=== PATIENT | female | born 1985 | race Caucasian/White ===

== ENCOUNTER 2021-09-08 16:28 | Outpatient (CLI) | payer MEDICAID, SELFPAY ==
[2021-09-08] VITALS (13 sets, daily range): BP systolic 132–158; BP diastolic 63–86; PULSE 76–92; TEMP 35.7; O2SAT 96–99; BMI 49.0
--- NOTE | 2021-09-08 17:10 | OB.TRI.NOTE ---
HPI - General HPI Narrative PAZ WILDER, is a 36 F @ 30.5 weeks who presents c/o visual changes- sun spots since yesterday, headache behind right eye- not relieve with tylenol and left arm tingling and weakness. pt reports h/o PRE E about 17 yrs ago at end of . pt denies any CHTN dx. Pt is GDMA2 on insulin. Maternal Data Information Gestational age: 30.5 PFSH PFSH Home Medications Novolin 70/30 PenFill 8 units 09/08/21 [History Last Taken Unknown] aspirin [Aspir-81] 81 mg PO DAILY 09/08/21 [History Last Taken 09/07/21 21:00] sertraline [Zoloft] 50 mg PO DAILY 09/08/21 [History Last Taken 09/08/21 09:00] Allergy/AdvReac Type Severity Reaction Status Date / Time bee venom protein (honey bee) Allergy Hives Verified 09/08/21 16:52 Physical Exam Narrative general: Female in no apparent distress eyes: Left eye pupil slightly more dilated than her right. They are both reactive to light. ext: Patient has full range of motion and there is no decrease in her strength in lower extremities or upper extremities that I could appreciate on exam. abd: Soft gravid nontender to palpation. No right upper quadrant pain.
[2021-09-08] MEDS: 0.9% Saline Lock 10 ML Syringe IV (17:20)
--- NOTE | 2021-09-08 17:35 | CT_ITS ---
EXAM: CT ANGIOGRAPHY HEAD AND NECK WITH INTRAVENOUS CONTRAST CLINICAL INDICATION: headache, unequal pupils TECHNIQUE: [place]/head and neck CT angiography protocol performed with intravenous contrast. This CT exam was performed using one or more of the following dose reduction techniques: automated exposure control, adjustment of the mA and/or kV according to patient size, and/or use of iterative reconstruction technique. This report was created using [employer] report generation technology. MIP reconstructed images were created and reviewed. CONTRAST: IV 100mL Isovue-370 COMPARISON: None. FINDINGS: HEAD: RIGHT ANTERIOR CEREBRAL ARTERY: Unremarkable. No significant stenosis at the visualized segments. Anterior communicating artery is present. No aneurysm. RIGHT MIDDLE CEREBRAL ARTERY: Unremarkable. No significant stenosis at the visualized segments. No aneurysm. RIGHT POSTERIOR CEREBRAL ARTERY: Unremarkable. No occlusion or significant stenosis. No aneurysm. RIGHT INTRACRANIAL INTERNAL CAROTID ARTERY: Unremarkable. No significant stenosis. No dissection or occlusion. RIGHT INTRACRANIAL VERTEBRAL ARTERY: Unremarkable. No significant stenosis. No dissection or occlusion. LEFT ANTERIOR CEREBRAL ARTERY: Unremarkable. No significant stenosis at the visualized segments. No aneurysm. LEFT MIDDLE CEREBRAL ARTERY: Unremarkable. No significant stenosis at the visualized segments. No aneurysm. LEFT POSTERIOR CEREBRAL ARTERY: Unremarkable. No occlusion or significant stenosis. No aneurysm. LEFT INTRACRANIAL INTERNAL CAROTID ARTERY: Unremarkable. No significant stenosis. No dissection or occlusion. LEFT INTRACRANIAL VERTEBRAL ARTERY: Unremarkable. No significant stenosis. No dissection or occlusion. BASILAR ARTERY: Unremarkable. No significant stenosis. No aneurysm. GREAT VESSELS OF AORTIC ARCH: Unremarkable. Normal anatomy, patent. OTHER VASCULATURE: There are no acute findings of the right and left internal carotid artery. ALL ABOVE CRITERIA BY NASCET. No vascular malformation. NECK: RIGHT COMMON CAROTID ARTERY: Unremarkable. No significant stenosis. No dissection or occlusion. RIGHT EXTRACRANIAL INTERNAL CAROTID ARTERY: Unremarkable. No significant stenosis. No dissection or occlusion. RIGHT EXTERNAL CAROTID ARTERY: Unremarkable. No occlusion. RIGHT EXTRACRANIAL VERTEBRAL ARTERY: Unremarkable. No significant stenosis. No dissection or occlusion. LEFT COMMON CAROTID ARTERY: Unremarkable. No significant stenosis. No dissection or occlusion. LEFT EXTRACRANIAL INTERNAL CAROTID ARTERY: Unremarkable. No significant stenosis. No dissection or occlusion. LEFT EXTERNAL CAROTID ARTERY: Unremarkable. No occlusion. LEFT EXTRACRANIAL VERTEBRAL ARTERY: Unremarkable. No significant stenosis. No dissection or occlusion. LUNG APICES: Unremarkable as visualized. HEAD and NECK: BONES/JOINTS: Unremarkable. No discrete lytic or blastic abnormalities. SOFT TISSUES: Unremarkable. OTHER FINDINGS: There are no acute findings of the [place] of [place] without a demonstrated aneurysm or hemodynamically significant stenosis. ALL ABOVE CRITERIA BY NASCET. CAROTID STENOSIS REFERENCE USING NASCET CRITERIA: % ICA stenosis = (1 - narrowest ICA diameter/diameter of distal cervical ICA) x 100. Mild - <50% stenosis. Moderate - 50-69% stenosis. Severe - 70-94% stenosis. Near occlusion - 95-99% stenosis. Occluded - 100% stenosis. CT/CTA Head AND Neck W/ Contrast IMPRESSION: 1. There are no acute findings of the [place] of [place] without a demonstrated aneurysm or hemodynamically significant stenosis. ALL ABOVE CRITERIA BY NASCET. 2. There are no acute findings of the right and left internal carotid artery. ALL ABOVE CRITERIA BY NASCET. Electronically Signed: Matthew Fishman MD at 18:41 EDT ,
[2021-09-08 17:43] LABS: Protein, Urine (Random) 30.1 mg/dL (<11.9); Protein:Creat Ratio 102 mg/g CRE (0-200)
[2021-09-08 17:44] LABS: Hematocrit 33.3 % (37-47); Hemoglobin 11.1 g/dL (12.0-15.0); Mean Corp Hgb Conc 33.3 g/dL (32-36); Mean Corpuscular Hgb 28.2 pg (27.0-32.0); Mean Corpuscular Volume 84.5 fL (81-99); Platelet Count 318 K/mm3 (150-450); RBC Distribution Width CV 13.9 % (11.6-14.6); RBC Distribution Width SD 43.2 fl (35.1-43.9); Red Blood Count 3.94 M/mm3 (4.2-5.4); White Blood Count 10.5 K/mm3 (4.4-11.0)
[2021-09-08 18:01] LABS: AST(SGOT) 12 U/L (15-37); Alanine Aminotransfer ALT/SGPT 23 U/L (13-56); EST Glomerular Filtration Rate 147 mL/min (>60); Est Glom Filt Rate - Afr Amer 177 mL/min (>60); Uric Acid 3.4 mg/dL (2.6-6.0)
[2021-09-08] MEDS: Acetaminophen 500 MG Tablet 1000 MG PO (18:13)
--- NOTE | 2021-09-26 09:39 | OB.TRI.NOTE ---
HPI - General HPI Narrative PAZ WILDER, is a 36 F who presents PFSH PFSH Home Medications Novolin 70/30 PenFill 8 units OTHER DAILY 09/08/21 [History Last Taken Unknown] Novolin 70/30 PenFill 24 units OTHER QPM 09/08/21 [History Last Taken Unknown] aspirin [Aspir-81] 81 mg PO DAILY 09/08/21 [History Last Taken 09/07/21 21:00] sertraline [Zoloft] 50 mg PO DAILY 09/08/21 [History Last Taken 09/08/21 09:00] Allergy/AdvReac Type Severity Reaction Status Date / Time bee venom protein (honey bee) Allergy Hives Verified 09/08/21 16:52 NST FHR Rate Baby A Baseline: 140 Variability:: Moderate Accelerations:: 15 x 15 and 10 x 10 Decelerations:: None NST Reactive:: Yes FHR Category:: Category I Uterine Activity:: no ctx
== END 2021-09-08 23:59 | disposition home or self-care (01) ==
LOC: WPOUT 16:39 → WP 16:40
PROVIDERS: Referring Provider Obstetrics & Gynecology; Visit Provider Obstetrics & Gynecology
DX: O26.893 Other specified pregnancy related conditions, third trimester (principal); O24.414 Gestational diabetes mellitus in pregnancy, insulin controlled; Z3A.30 30 weeks gestation of pregnancy; R51.9 Headache, unspecified; O99.891 Other specified diseases and conditions complicating pregnancy; H53.9 Unspecified visual disturbance
CPT/HCPCS: 36415; 59025; 59050; 70496; 70498; 82565; 82570; 84156; 84450; 84460; 84550; 85027; 99218; Q9967; A4216; G0378

== ENCOUNTER 2021-10-26 07:00 | Inpatient (IN) | payer MEDICAID, SELFPAY ==
[2021-10-26] VITALS (47 sets, daily range): BP systolic 110–219; BP diastolic 56–151; PULSE 69–153; RESP 16; TEMP 36.1–37.1; O2SAT 97–100; BMI 47.6
--- NOTE | 2021-10-26 07:40 | PCM.HP.OB ---
HPI - General General Date of Admission: 10/26/21 HPI Narrative PAZ WILDER, is a 36 F who presents at 37w4d for medically indicated induction of labor due to GDMA2. complicated by obesity, HPV, GDMA2, and AMA. Maternal Data Information WU Calculator Estimated Delivery Date Method Current WG Current Estimate 11/12/21 Manual 37w 4d PFSH PFSH Medical History (Updated 10/26/21 @ 08:06 by Nneka Perera CNM) Anxiety Depression Family history of hearing loss at age younger than 7 years Gestational diabetes Mitral valve prolapse Home Medications Novolin 70/30 PenFill 8 units OTHER DAILY 09/08/21 [History Last Taken Unknown] Novolin 70/30 PenFill 24 units OTHER QPM 09/08/21 [History Last Taken Unknown] aspirin [Aspir-81] 81 mg PO DAILY 09/08/21 [History Last Taken 09/07/21 21:00] sertraline [Zoloft] 50 mg PO DAILY 09/08/21 [History Last Taken 10/25/21 10:00] Allergy/AdvReac Type Severity Reaction Status Date / Time bee venom protein (honey bee) Allergy Hives Verified 09/08/21 16:52 Family History (Updated 10/26/21 @ 08:00 by Denise Hoffman RN) Grandmother Breast cancer Social History Smoking Status: Never smoker History Elective abortions Hx Para 5 Spontaneous abortions Hx # Term Pregnancies Ectopic pregnancies Hx # Pregnancies Multiple births # of living children ROS Constitutional Constitutional: Reports systems reviewed and no addt'l complaints, except as documented; Denies headache(s) Eyes Eyes: Denies acute decrease in peripheral vision, blurry vision or change in vision ENT HEENT: Reports systems reviewed and no addt'l complaints, except as documented Cardiovascular Cardiovascular: Denies chest pain or dizziness Respiratory/Chest Respiratory/Chest: Denies cough, dyspnea, dyspnea on exertion, shortness of breath at rest or shortness of breath with exertion Gastrointestinal Gastrointestinal: Denies abdominal pain, diarrhea, nausea or vomiting Genitourinary Genitourinary: Denies abdominal discomfort or movement Musculoskeletal Musculoskeletal: Denies limited range of motion Integumentary Integumentary: Reports systems reviewed and no addt'l complaints, except as documented Neurologic Neurologic: Reports systems reviewed and no addt'l complaints, except as documented Psychiatric Psychiatric: Reports systems reviewed and no addt'l complaints, except as documented Endocrine Endocrinology: Reports systems reviewed and no addt'l complaints, except as documented Hematologic/Lymphatic Hematologic/Lymphatic: Reports systems reviewed and no addt'l complaints, except as documented Allergic/Immunologic Allergic/Immunologic: Reports systems reviewed and no addt'l complaints, except as documented Vital Signs Vital Signs Vital Signs: Weight Weight: 286 lb 6.087 oz Body Mass Index (BMI) 47.6 Physical Exam Const alert and oriented x3 General Appearance: cooperative Orientation / Consciousness: awake, oriented to person, oriented to place and oriented to time Exam Limitations: no limitations HEENT normocephalic Head and Scalp: normal to inspection, normocephalic and atraumatic Face and Sinus: normal facial exam Eyes General Eye: normal appearance of both eyes Neck full ROM Chest Chest: symmetrical chest wall rise Resp normal respiratory effort and normal air movement Auscultation: clear to auscultation bilaterally Cardio regular rate, regular rhythm, S1 normal heart sound, S2 normal heart sound, no murmurs, no rub, no gallops and no clicks GI normal to inspection, nondistended, normoactive bowel sounds and non-tender appearance of the vagina normal Bladder / Kidney Exam: no CVA tenderness Manual OB Exam: estimated gestational size appropriate, presentation cephalic, dilated 2cm, effaced 60%, station -3 and other Patel catheter placed transcervically without complications. 30ml NS instilled. Tolerated well. Back/Spine normal ROM Extremity normal to inspection and full ROM Skin no rashes or lesions noted Neuro oriented x3, CN's II-XII intact bilaterally and moves all extremities Sensorium / Orientation: awake, alert and oriented to person Motor Exam: clonus absent Deep Tendon Reflexes: Rt Patellar (L4): 2+ and Lt Patellar (L4): 2+ Labs Labs Labs: Hct 33.3 % (37-47) L Hgb 11.1 g/dL (12.0-15.0) L HIV negative HBsAG negative HepC negative Rubella Immune RPR non reactive GC/CT negative O positive GBS negative Assessment & Plan (1) Obesity affecting : QUALIFIERS: Trimester: third trimester Qualified Code(s): O99.213 - Obesity complicating , third trimester (2) GDM, class A2: (3) Sleep apnea: (4) Encounter for induction of labor: (5) 37 weeks gestation of : PLAN: 1) Admit to labor and delivery 2) Routine labs 3) COVID test 4) BS per protocol for GDM 5) Patel for cervical ripening with pitocin 6) Continuous EFM 7) Epidural upon request 8) collaborative physician and referral of care to physician due to GDMA2
[2021-10-26] MEDS: Lactated Ringers 1,000 ML 50 ML IV (07:45)
[2021-10-26] MEDS: 0.9% Normal Saline Single 100 ML IV.SOLN. INTRA-UTER (07:50)
[2021-10-26 08:05] LABS: Absolute Lymphocyte Count 1.24 X10^3/uL (0.83-4.51); Absolute Neutrophil Count 7.2 X10^3/uL (2.0-7.7); Basophil# 0.03 X10^3/uL; Basophil% 0.3 % (0-1); Eosinophil# 0.08 X10^3/uL; Eosinophils% 0.9 % (0-5); Hematocrit 34.9 % (37-47); Hemoglobin 11.4 g/dL (12.0-15.0); Lymphocyte # 1.24 X10^3/ul (0.83-4.51); Mean Corp Hgb Conc 32.7 g/dL (32-36); Mean Corpuscular Hgb 27.6 pg (27.0-32.0); Mean Corpuscular Volume 84.5 fL (81-99); Mean Platelet Vol. 9.9 fl (6.2-12.0); Monocyte# 0.31 X10^3/uL; Monocyte% 3.5 % (0-10); NRBC Flagged by Analyzer 0 % (0-5); Neutrophil # 7.17 X10^3/uL (2.7-7.7); Platelet Count 299 K/mm3 (150-450); RBC Distribution Width CV 14.8 % (11.6-14.6); Red Blood Count 4.13 M/mm3 (4.2-5.4); White Blood Count 8.9 K/mm3 (4.4-11.0)
[2021-10-26] MEDS: Oxytocin 30 units/NS 500 ml 30 UNITS/500 ML IV.SOLN IV (08:10)
[2021-10-26] MEDS: Dext 5%-0.45% NS 1,000 ML 125 ML IV (09:25)
[2021-10-26 10:56] LABS: Bedside Glucose 99 mg/dL (74-106)
[2021-10-26 10:56] LABS: Bedside Glucose 121 mg/dL (74-106)
[2021-10-26 11:30] LABS: Bedside Glucose 85 mg/dL (74-106)
[2021-10-26] MEDS: fentaNYL 100 MCG/2 ML Ampul IV ×2 (11:52→14:38)
[2021-10-26] MEDS: 0.9% Saline Lock 10 ML Syringe IV ×6 (11:53→18:48)
[2021-10-26 12:21] LABS: Bedside Glucose 80 mg/dL (74-106)
--- NOTE | 2021-10-26 12:34 | PCM.PN.BLA ---
Progress Note late entry: AROM performed at approximately 9:45am- clear fluid- /-2. IUPC and IFM placed. pt tolerated well. FHR category 1. continue pitocin. continue insulin drip
[2021-10-26 13:40] LABS: Bedside Glucose 82 mg/dL (74-106)
[2021-10-26 14:41] LABS: Bedside Glucose 90 mg/dL (74-106)
[2021-10-26] MEDS: Oxytocin 30 units/NS 500 ml 30 UNITS/500 ML IV.SOLN 334 UNITS IV (15:16)
--- NOTE | 2021-10-26 15:23 | EX.PCM.OBRPT ---
Assessment & Plan (1) Vaginal delivery: (2) GDM, class A2: (3) Sleep apnea: Maternal Data Information WU Calculator Estimated Delivery Date Method Current WG Current Estimate 11/12/21 Manual 37w 4d Vaginal Delivery Maternal Presentation Maternal Presentation: Medically Indicated Induction Type of Induction: Pitocin, Patel Bulb and Amniotomy Medical Reason for Induction: - (uncontrolled GDMA2, AMA, Obesity in ) Operative Information Date of Procedure: 10/26/21 Pre-Operative Diagnosis: AMA, Obesity in , 37 weeks, uncontrolled GDMA2 Post-Operative Diagnosis: same, live female Surgery / Procedure Performed: Spontaneous Vaginal Delivery Type of Anesthesia: None Estimated Blood Loss: 100 Time of Delivery: 15:12 Findings Description of Procedure: I was called and notified that the patient was complete. I immediately left the office proceeded to the hospital. Upon my arrival was already delivered without complication. The placenta was still intact. At this time upon my arrival pediatricians were evaluating the . The was vigorous. Pitocin was started. Placenta was delivered without complication and intact spontaneously. Vaginal tissue was examined noted to be intact. Good hemostasis appreciated. Presentation: Vertex Amniotic Membrane Rupture Type: Artificial Amniotic Fluid Description: Clear Placental Delivery Description: Spontaneous Placenta Disposition: [facility] Specimen(s) Removed: Placenta Cord Vessel Description: 3 Vessels Cord Entanglement: None Infant A Gender: Female (1 minute): 8 (5 minute): 9 Delayed Cord Clamping: Yes Post Vaginal Delivery Medications Given After Delivery: IV Pitocin Episiotomy Description: None Laceration: None Complication Complications: None Admit VTE Documentation VTE Present on Admission: No VTE Pharm Prophylaxis Ordered: No Reason Prophylaxis Not Ordered: Procedure Not Indicated
[2021-10-26 16:35] LABS: Bedside Glucose 97 mg/dL (74-106)
[2021-10-27] VITALS (13 sets, daily range): BP systolic 133–145; BP diastolic 72–87; PULSE 71–87; RESP 16; TEMP 36.4–36.7; O2SAT 97–99
[2021-10-27] MEDS: Acetaminophen 500 MG Tablet 1000 MG PO ×2 (05:15→22:31)
[2021-10-27 06:15] LABS: Bedside Glucose 109 mg/dL (74-106)
[2021-10-27] MEDS: Sertraline 50 MG Tablet PO (09:49)
--- NOTE | 2021-10-27 12:22 | PCM.PN.OB ---
Subjective Subjective Denies complaints Objective Data Objective Data Vital Signs: Vital Signs Temp Pulse Resp BP Pulse Ox 97.5 F L 81 16 142/86 H 99 10/27/21 09:38 10/27/21 09:38 10/27/21 05:00 10/27/21 09:38 10/27/21 09:38 Oxygen Delivery Method Room Air Weight: 286 lb 6.087 oz Body Mass Index (BMI) 47.6 Intake & Output: Intake and Output for Last 24 Hours 10/25/21 10/26/21 10/27/21 23:59 23:59 23:59 Intake Total 1204.91 / 1204.91 Output Total 400 / 400 Balance 804.91 / 804.91 Lab / Micro Data Result Diagrams: 10/26/21 07:45 Labs: Laboratory Results - last 24 hr 10/26/21 13:29: POC Glucose 82 10/26/21 14:28: POC Glucose 90 10/26/21 15:54: POC Glucose 97 10/27/21 06:10: POC Glucose 109 H Micro: Microbiology 10/26/21 08:00 Nasal Secretion SARS-CoV-2 Antigen (Rapid) - Final Physical Exam Const alert, oriented x3 and no apparent distress HEENT normocephalic GI soft to palpation, non-tender and non-distended GI Narrative: fundus firm, mid & below umbilicus Extremity normal to inspection and no calf tenderness Assessment & Plan (1) GDM, class A2: COMMENT: PPD#1 PLAN: FBS elevated Recommend repeat tomorrow (2) Elevated blood pressure affecting in third trimester, antepartum: PLAN: BP's normal to systolic of 140's. Will check preE labs & monitor.
[2021-10-27 12:57] LABS: Hematocrit 33.5 % (37-47); Hemoglobin 10.9 g/dL (12.0-15.0); Mean Corp Hgb Conc 32.5 g/dL (32-36); Mean Corpuscular Hgb 27.7 pg (27.0-32.0); Mean Corpuscular Volume 85.2 fL (81-99); Mean Platelet Vol. 10.3 fl (6.2-12.0); Platelet Count 270 K/mm3 (150-450); RBC Distribution Width CV 14.6 % (11.6-14.6); RBC Distribution Width SD 45.5 fl (35.1-43.9); Red Blood Count 3.93 M/mm3 (4.2-5.4); White Blood Count 8.8 K/mm3 (4.4-11.0)
[2021-10-27 13:06] LABS: Protein, Urine (Random) 13.4 mg/dL (<11.9); Protein:Creat Ratio 236 mg/g CRE (0-200)
[2021-10-27 13:13] LABS: AST(SGOT) 13 U/L (15-37); Alanine Aminotransfer ALT/SGPT 19 U/L (13-56); Creatinine, Serum 0.57 mg/dL (0.55-1.02); EST Glomerular Filtration Rate 127 mL/min (>60); Est Glom Filt Rate - Afr Amer 153 mL/min (>60); Uric Acid 3.8 mg/dL (2.6-6.0)
[2021-10-28] VITALS (11 sets, daily range): BP systolic 120–143; BP diastolic 58–84; PULSE 66–86; RESP 16–18; TEMP 35.9–36.6; O2SAT 94–98
[2021-10-28] MEDS: Acetaminophen 500 MG Tablet 1000 MG PO (08:21)
[2021-10-28] MEDS: Sertraline 50 MG Tablet PO (10:04)
[2021-10-28] MEDS: Labetalol 100 MG Tablet PO (10:04)
--- NOTE | 2021-10-28 12:35 | PCM.PN.BLA ---
Progress Note Doing well. Desires discharge today. She denies headache, vision changes, upper abdominal pain. She denies chest pain or shortness of breath. Ambulating voiding without difficulty. Lochia normal. She is breast-feeding without concerns. She is eating without nausea or vomiting. Physical Exam Const alert and no apparent distress General Appearance: comfortable Resp normal respiratory effort Assessment & Plan Assessment/Plan (1) Vaginal delivery: PLAN: PPD#2 . Doing well. BP's are trending up, will start Labetalol 100 mg BID. She has no pre e symptoms. Pre e workup was negative prior. Discussed warning signs and symptoms of pre e and when to call. To check BP at home, and follow up in office in 1 week for BP check. (2) Elevated blood pressure affecting in third trimester, antepartum: (3) GDM, class A2:
--- NOTE | 2021-10-28 12:41 | PCM.DC ---
Discharge Instructions Diet Discharge Diet: No restrictions Activity Discharge Activity: May Drive (once you feel your core is strong enough to slam on a brake or turn a steering wheel sharply) and May Shower May resume sexual activity in: 6 weeks Ice area for (Minutes): 15 Weight Bearing Status: Weight bearing as tolerated Lifting Restrictions: Nothing heavier than baby Additional Activity Instructions:: Call if you have a severe headache that does not improve with Tylenol, visual changes, upper abdominal pain that is persistent, or if you generally feel unwell. Check your blood pressure before taking the blood pressure medication. If it is less than 120/80, do not take the medication and recheck your blood pressure in 1 hour. If you take the medication, check your blood pressure 1 hour after taking it. Keep a log and send me a my chart message or call the office on Sunday with an update. We will see you in 1 week for a blood pressure check. Call if you have a blood pressure that is 160/110 or higher. Dressing / Incision Call your doctor if you observe: Fever of 101 or Higher, Coldness, Increased Pain, Numbness or Tingling, Change in Color, Inability to urinate, Inability to have a bowel movement, Using more than 1 pad per hour, Shortness of breath, Dizziness, Fainting spells, Swelling in the ankles, Chest pain, Increased palpitations (irregular heartbeat), Calf discomfort and Uncontrolled pain Follow Up Care When: 1 week for blood pressure check 6 weeks for visit Test Results: Test results from this visit will be discussed in further detail at your follow-up appointment, if applicable. Discharge Plan Admission Admit Date/Time: 10/26/21 07:00 Primary Reason for Your Visit: vaginal delivery Attending Provider: Niurka Polk Primary Care Provider: Care Physician,No Primary Instructions Patient Instructions: After a Vaginal Discharge Orders/Prescriptions Prescriptions: New labetalol 100 mg tablet 100 mg PO BID Qty: 60 RF: 0 Continued sertraline [Zoloft] 50 mg Tablet 50 mg PO DAILY RF: 0 Discontinued aspirin [Aspir-81] 81 mg Tablet,Delayed Release (Dr/Ec) 81 mg PO DAILY RF: 0 Novolin 70/30 PenFill 14 units DAILY RF: 0 Novolin 70/30 PenFill 30 units QPM RF: 0 insulin lispro 100 unit/mL solution 20 unit subcut DAILY RF: 0 Referrals / Follow Up: Care Physician,No Primary [Primary Care Provider] - Disposition Disposition (needs filled in before D/C Order can be placed): Home, Self Care
--- NOTE | 2021-10-28 13:33 | NURSING ---
Reviewed special discharge instructions with pt including when to check BP and new labetalol medication prescription. Pt aware she is to follow up in office in [address] Brandon putting in order for pt own BP cuff to be picked up at [facility].
--- NOTE | 2021-11-01 15:17 | NURSING ---
Follow up call done, patient denies any complications, had a dr appt sunday and needs to make another follow up appt and this phone call reminded her to do that. baby is going well and patient said she loved her stay everything was great, very satisfied.
== END 2021-10-28 13:33 | disposition home or self-care (01) | DRG 560 ==
PROVIDERS: Advanced Practice Midwife; Obstetrics & Gynecology; Admitting Provider Obstetrics & Gynecology; Visit Provider Obstetrics & Gynecology
DX: O24.424 Gestational diabetes mellitus in childbirth, insulin controlled (principal); Z37.0 Single live birth; O99.354 Diseases of the nervous system complicating childbirth; Z79.4 Long term (current) use of insulin; G47.30 Sleep apnea, unspecified; E66.9 Obesity, unspecified; O99.214 Obesity complicating childbirth; Z3A.37 37 weeks gestation of pregnancy; O26.23 Pregnancy care for patient with recurrent pregnancy loss, third trimester
CPT/HCPCS: 59025; 59050; 82565; 82570; 82962; 84156; 84450; 84460; 84550; 85025; 85027; 86850; 86900; 86901; 87426; 99218; J7120; A4216; G0378; J7799

== ENCOUNTER 2021-12-08 09:42 | Day surgery (SDC) | payer MEDICAID, SELFPAY ==
--- NOTE | 2021-12-02 07:36 | EKG12_ITS ---
Test Reason : PRE-OP Blood Pressure : / mmHG Vent. Rate : 076 BPM Atrial Rate : 076 BPM P-R Int : 130 ms QRS Dur : 082 ms QT Int : 376 ms P-R-T Axes : 086 060 036 degrees QTc Int : 423 ms Normal sinus rhythm Nonspecific ST abnormality Abnormal ECG Confirmed by SEBASTIÁN SANZ, SUMIT ([id number]), rewrite editor MARIA GUADALUPE PEREZ ([id number]) on 12/02/2021 11:25:36 AM Referred By: Tanika Honeycutt Confirmed By:SUMIT LOWERY MD
[2021-12-02 08:16] LABS: Hematocrit 39.3 % (37-47); Hemoglobin 12.6 g/dL (12.0-15.0); Mean Corp Hgb Conc 32.1 g/dL (32-36); Mean Corpuscular Hgb 27.2 pg (27.0-32.0); Mean Corpuscular Volume 84.7 fL (81-99); Mean Platelet Vol. 9.8 fl (6.2-12.0); Platelet Count 362 K/mm3 (150-450); RBC Distribution Width CV 14.5 % (11.6-14.6); RBC Distribution Width SD 44.4 fl (35.1-43.9); Red Blood Count 4.64 M/mm3 (4.2-5.4); White Blood Count 9.3 K/mm3 (4.4-11.0)
[2021-12-08 10:13] VITALS: BP 139/76; PULSE 72; RESP 16; TEMP 36.4; O2SAT 97; BMI 45.8
[2021-12-08 10:17] LABS: Internal QC Validated? YES +Cl - CLEAR BKGD; Pregnancy, Urine Negative Negative
[2021-12-08] MEDS: Acetaminophen 500 MG Tablet 1000 MG PO (10:23)
[2021-12-08] MEDS: Celecoxib 200 MG Capsule 400 MG PO (10:23)
--- NOTE | 2021-12-08 10:32 | PCM.HP.BLA ---
History and Physical Date of Admission: 12/08/21 This case the H&P was reviewed. The patient was seen and examined. No clinically relevant updates since entered.
[2021-12-08] MEDS: Lactated Ringers 1,000 ML 30 ML IV ×2 (10:33→13:45)
--- NOTE | 2021-12-08 11:15 | FALS_PTH ---
PATIENT: PAZ ALMARAZ LOC: [facility] U#:[id number] AGE/SX: 36/F ROOM: RE12/08/[address]: Dr. Tanika Honeycutt MD : [id number] BED: DIS: 12/08/2021 SPEC #: [id number] RECD: 12/08/21 14:26 STATUS: SHAHID REGypsy #: [id number] CHARLIE: 12/08/21 11:[address]: Tanika Honeycutt DEPT: SURGICAL PATHOLOGY RECD BY: Annika Gomes ENTERED: 12/09/21 09:01 SP TYPE: FALL TUBES OTHR DR: Shayna Primary Care Phys Tissues: A - Fallopian tube B - Vulva, NOS Procedures: Surgery Specimen Level II Surgery Specimen Level IV HEADER OPERATION: Laparoscopic salpingectomy PRE-OP DIAGNOSIS: Sterilization, vulvar lesions TISSUE SUBMITTED: A ? Bilateral fallopian tubes, B ? Vulvar biopsy MICROSCOPIC DIAGNOSIS A. Right and left fallopian tubes, salpingectomies: Complete segments of fallopian tubes with no pathologic change. B. Vulva, biopsy: Molluscum contagiosum. AM:ashley 12/13/2021 MICROSCOPIC DESCRIPTION Slides are reviewed. GROSS DESCRIPTION A - Received in fixative is one container labeled with the patient's name and designated bilateral fallopian tubes. The specimen consists of two fallopian tubes with an average length of 6.5 cm and has an average diameter of 0.7 cm. Both fallopian tubes have normal fimbriated ends. No mass lesions are identified. Fisheries Director sections are submitted in two cassettes as follows: 1 - one fallopian tube, 2??the other fallopian tube. B - Received in fixative is one container labeled with the patient's name and designated vulvar biopsy. The specimen consists of a discoid fragment of light frances soft tissue measuring 0.7 x 0.5 x 0.2 cm. The specimen is inked, bisected and totally submitted in one cassette. / AM:ashley 12/09/2021 TC:5 CPT: 29998 x2, 11867
[2021-12-08] MEDS: Bupivacaine Mpf 0.5% 30 ML VIAL (12:48)
--- NOTE | 2021-12-08 13:08 | PCM.OPRPT ---
Problems Associated Problem List Diagnoses (1) Sterilization: (2) Vulval lesion: Report of Operation Date of Procedure: 12/08/21 Pre-Operative Diagnosis: sterilization request, vulvar lesion Post-Operative Diagnosis: same Surgery/Procedure Performed:: laparoscopic bilateral salpingectomy and vulvar biopsy Description of Surgical Findings:: normal uterus, cervix, tubes and ovaries Surgeon: Tanika Honeycutt teller supervisor: None Type of Anesthesia: General Anesthesiologist: Cathy Giron Special Medications: none Specimen's removed: bilateral fallopian tubes and vulvar lesion Drains: none Estimated Blood Loss (mL): 10 Fluids Replaced: 600 Description of Procedure: The patient was taken to the operating room where she was prepped and draped in the dorsolithotomy position. A weighted speculum was placed in the vagina and the anterior lip of the cervix was grasped with a tenaculum. The ZUMI uterine manipulator was placed and the remainder of the instruments were removed from the vagina. Attention was turned to the abdomen. All port sites were infiltrated with 0.5% Marcaine before skin incisions were made. A 5 mm intraumbilical incision was made. The anterior abdominal wall was tented up with 2 towel clamps while a 5 mm blade less trocar and sleeve were directly inserted. Intraperitoneal placement was confirmed with the laparoscope. The pneumoperitoneum was created and the underlying abdominal contents were intact. The patient was placed in Trendelenburg. Right and left lower quadrant ports were placed under direct visualization lateral to the inferior epigastric vessels. The bowel was swept away and the above findings were noted. The LigaSure device was used to clamp seal and transect the antimesenteric portions of the right tube to the cornual insertion of the uterus. The tube was amputated from the uterus and the pedicles were all confirmed to be hemostatic. The same procedure was performed on the contralateral side. The specimens were brought out through a 5 mm port. The pedicles were again examined and found to be hemostatic. The lateral ports were removed under direct visualization and no active bleeding was noted. The pneumoperitoneum was released. The skin incisions were closed with Monocryl suture in a subcuticular fashion and skin glue. The vaginal instruments were removed and the vaginal sweep was completed by nv. The skin lesion on the right buttock was then removed with a scalpel. A bandage was placed over the area and hemostasis was obtained by pressure. The procedure was performed by me with assistance other than as dictated above. All sponge and needle counts were correct and the patient was taken to the recovery room in stable condition. Grafts/Implants Used: none Procedure Start Time: 12:47 Procedure Stop Time: 13:08 Complications none Admit VTE Documentation VTE Present on Admission: No VTE Mechan Device Prophylaxis: SCD's VTE Pharm Prophylaxis ordered?: No Reason prophylaxis not ordered:: Procedure Not Indicated
[2021-12-08 13:12] VITALS: BP 135/80; BP 139/76; PULSE 48; RESP 16; TEMP 36.8; O2SAT 95
--- NOTE | 2021-12-08 13:12 | DCINST_ITS ---
Discharge Instructions Follow Up Care Test Results: Test results from this visit will be discussed in further detail at your follow- up appointment, if applicable. Discharge Plan Admission Primary Reason for Your Visit: Tubal sterilization and vulvar biopsy Attending Provider: Tanika Honeycutt Primary Care Provider: Shayna Gibson Primary Instructions Patient Instructions: Discharge Instruction for ... Discharge Orders/Prescriptions Prescriptions: New naproxen 375 mg tablet 375 mg PO TID PRN PRN (Reason: pain) 7 Days Qty: 20 0RF Continued sertraline [Zoloft] 50 mg Tablet 50 mg PO DAILY diphenhydramine HCl [Benadryl] 25 mg Capsule 25 mg PO DAILY Other Ambulatory Orders: 12 Lead EKG (Routine) Location: None Selected Ordered By: Dr. Ricki Holcomb Referrals / Follow Up: Care Physician,No Primary [Primary Care Provider] - Disposition Disposition (needs filled in before D/C Order can be placed): Home, Self Care
[2021-12-08 13:15] VITALS: BP 137/71; BP 139/76; PULSE 48; RESP 16; O2SAT 94
[2021-12-08 13:30] VITALS: BP 139/76; BP 148/78; PULSE 48; RESP 16; O2SAT 94
[2021-12-08 13:43] VITALS: BP 135/81; BP 139/76; PULSE 55; RESP 16; TEMP 36.8; O2SAT 95
[2021-12-08 14:29] VITALS: BP 139/76; BP 146/77; PULSE 54; RESP 16; TEMP 36; O2SAT 97
== END 2021-12-08 14:37 | disposition home or self-care (01) ==
LOC: SDC 09:43 → AC 09:44
PROVIDERS: Anesthesiology; Referring Provider Obstetrics & Gynecology; Visit Provider Obstetrics & Gynecology
PROC: (CPT 58661; principal; 2021-12-08 11:00)
DX: Z30.2 Encounter for sterilization (principal); B08.1 Molluscum contagiosum; F41.9 Anxiety disorder, unspecified; F32.A Depression, unspecified
CPT/HCPCS: 58661; 56605; 00840; 36415; 81025; 85027; 88302; 88305; 93005; J7120; C1760; J2405

== ENCOUNTER 2022-05-31 12:24 | Emergency (ER) | payer MEDICAID, SELFPAY ==
[2022-05-31 12:24] VITALS: BP 163/109; PULSE 91; RESP 16; TEMP 36.1; O2SAT 98; BMI 46.7
--- NOTE | 2022-05-31 12:40 | CT_ITS ---
STUDY: CTA HEAD AND NECK WITH CONTRAST REASON FOR EXAM: Female, 37 years old. Headache, abnormal pupils. PLEASE COMMENT ON C- BRAIN PORTION RADIATION DOSAGE (If Supplied By Facility): CTDIvol = ( 27.18 ) mGy, DLP = ( 1473.46 ) mGycm TECHNIQUE: CT angiography was performed with a multi-detector CT scanner. Data acquisition was obtained from the skull base through the vertex following intravenous administration of IV 100mL Isovue-370. MIP images were reconstructed from the axial data set. Post-processing of the angiographic images was performed, with multiplanar reformation and 3D reconstruction. Individualized dose optimization techniques were used for this CT. COMPARISON: No relevant priors. FINDINGS: Normal bilateral petrous carotid arteries. Normal right cavernous carotid artery with a normal supraclinoid bifurcation. Normal left cavernous carotid artery with a normal supraclinoid bifurcation. Normal right A1 segments of the anterior cerebral artery. Normal left A1 segments of the anterior cerebral artery. Normal intact anterior communicating artery (ACOM). Normal bilateral A2 segments of the anterior cerebral arteries. Normal right M1 and M2 segments of the middle cerebral arteries, with a normal M1 bifurcation. Normal left M1 and M2 segments of the middle cerebral arteries, with a normal M1 bifurcation. Normal right posterior communicating artery (PCOM). Normal left posterior communicating artery (PCOM). Normal bilateral vertebral arteries. Normal basilar artery with a normal basilar bifurcation. The visualized bilateral superior cerebellar (SCA) arteries are normal. Normal bilateral P1, P2 and visualized P3 segments of the posterior cerebral arteries. There is no demonstrated aneurysm of the [place] of [place]. There is no demonstrated abnormality of the visualized brain. AORTIC ARCH: Normal visualized aortic arch. Normal origins of the brachiocephalic, left common carotid, and left subclavian arteries. RIGHT CAROTID ARTERIES: Normal right common carotid artery (CCA). Normal right common carotid bulb. Normal origin of the right internal carotid (ICA) artery without a hemodynamically significant stenosis. Normal visualized cervical portion of the right internal carotid artery. Normal origin of the right external carotid artery (ECA). LEFT CAROTID ARTERIES: Normal left common carotid artery (CCA). Normal left common carotid bulb. Normal origin of the left internal carotid (ICA) artery without a hemodynamically significant stenosis. Normal visualized cervical portion of the left internal carotid artery. Normal origin of the left external carotid artery (ECA). VERTEBRAL ARTERIES: Normal bilateral vertebral arteries. CT/CTA Head AND Neck W/ Contrast IMPRESSION: Normal CTA Head and neck with contrast. Electronically Signed: Farhat Rodriguez MD at 13:38 EST ,
--- NOTE | 2022-05-31 12:41 | EX.ED.VIS.HA ---
HPI History of Present Illness Chief Complaint: Headache Detail of Chief Complaint: Headache and abnormal pupils Informant: patient Narrative Narrative: Patient presents the emergency department with complaint of a headache that started yesterday. Patient states that initially her boyfriend noticed that her pupils were on equal and her left pupil was large and dilated. Patient then subsequently developed a headache that can change from the right side of her head behind her right eye to the left side of her head behind her left eye. Patient states that she called the ER at [place] and was told to follow-up with PCP or eye doctor the following day. Patient was seen by her eye doctor today and her eye exam was unremarkable but there was concern about unequal pupil and headache and recommended that she come to the ER for MRI of the brain and neck. Currently rates her pain a 4 5 out of 10. No family history of brain aneurysms. No family history of brain tumors. [facility] Medical History Anxiety CPAP (continuous positive airway pressure) dependence Depression Elevated blood pressure affecting in third trimester, antepartum Family history of hearing loss at age younger than 7 years GDM, class A2 Gestational diabetes Mitral valve prolapse Obesity affecting Restless legs Sleep apnea Sterilization Vaginal delivery Wears contact lenses Home Medications sertraline 50 mg tablet (Zoloft) 50 mg PO DAILY AMA 09/08/21 [History Last Taken 10/25/21 10:00] diphenhydramine HCl 25 mg capsule (Benadryl) 25 mg PO DAILY 12/01/21 [History Last Taken Unknown] naproxen 375 mg tablet 375 mg PO TID PRN PRN pain 7 days #20 tabs 12/08/21 [Rx Last Taken Unknown] Allergy/AdvReac Type Severity Reaction Status Date / Time bee venom protein (honey bee) Allergy Hives Verified 12/08/21 10:11 Family History (Updated 10/26/21 @ 08:00 by Denise Hoffman RN) Grandmother Breast cancer Social History Smoking Status: Never smoker ROS ROS ED Review of Systems ROS Unobtainable: other Constitutional Constitutional ED: Reports lethargy; Denies chills, fever(s), sweats or weight loss Eyes Eyes: Denies blurry vision, change in vision or diplopia ENT ENT ED: Reports other Details: Abnormal left pupil ; Denies rhinorrhea or sore throat Cardiovascular Cardiovascular: Denies chest pain, orthopnea or racing heartbeat Respiratory/Chest Respiratory/Chest: Denies cough, dyspnea, dyspnea on exertion, orthopnea or sputum Gastrointestinal Gastrointestinal: Denies abdominal pain, diarrhea, nausea or vomiting Genitourinary Genitourinary ED: Denies dysuria, hematuria or urinary frequency Musculoskeletal Musculoskeletal: Denies arthralgias, back pain, myalgias or neck pain Integumentary Denies abscess, Abrasions or rash Neurologic Neurologic: Reports headache(s); Denies weakness Psychiatric Psychiatric: Denies anxiety, depression or suicidal thoughts Endocrine Endocrinology: Denies polydipsia, polyphagia or polyuria Hematologic/Lymphatic Hematologic/Lymphatic: Denies easy bleeding, easy bruising or lymphadenopathy Allergic/Immunologic Allergic/Immunologic ED: Denies mouth swelling, tongue swelling or urticaria EXAM Physical Exam Const Vital Signs: 05/31/22 12:24 05/31/22 13:13 05/31/22 16:01 Temperature 97.0 F L Temperature Source Temporal Pulse Rate 91 85 75 Respiratory Rate 16 17 18 Blood Pressure 163/109 H 124/84 H 134/78 H Blood Pressure Mean 127 97 96 Pulse Ox 98 98 98 Oxygen Delivery Method Room Air Room Air Room Air 05/31/22 16:12 Temperature Temperature Source Pulse Rate 77 Respiratory Rate 17 Blood Pressure 127/72 H Blood Pressure Mean 90 Pulse Ox 98 Oxygen Delivery Method Room Air Positive well nourished and well developed General Appearance ED: well developed and NAD HEENT Reports TM's clear and moist mucous membranes normocephalic and atraumatic; Negative for trauma or tenderness Tympanic Membrane ED: Yes TM's clear Eyes PERRL and EOMs intact bilaterally Eyes Narrative: Left pupil 8 mm and reactive. Right pupil about 6 mm and reactive. General Eye ED: Negative for pale conjunctiva or scleral icterus Neck no lymphadenopathy, supple and no JVD General: Negative for tenderness Chest Wall inspection of chest normal and palpation of chest normal Chest: Negative for tenderness Resp normal respiratory effort and clear to auscultation bilaterally Effort and Inspection: Negative for respiratory distress or pain with movement Auscultation: Negative for rhonchi, wheezes or diminished lung sounds Cardio regular rate, regular rhythm, S1 normal heart sound, S2 normal heart sound and no murmurs Peripheral Pulses: pulses 2+ throughout GI normal to inspection, nondistended, normoactive bowel sounds, soft to palpation, non-tender, non-distended and no masses Back/Spine no CVA tenderness and no thoracic nor lumbar tenderness Extremity normal to inspection General Extremety ED: Negative for edema General Extremity: Negative for edema Neuro oriented x3, CN's II-XII intact bilaterally, no sensory deficits noted and gait normal Neuro Narrative: Finger-nose and heel ferrell testing within normal limits, negative Romberg, negative for drift, fundi benign Sensorium / Orientation: awake, alert, oriented to person, oriented to place and oriented to time Motor Exam: strength 5/5 throughout and strength abnormal Psych mental status grossly normal Skin no rashes or lesions noted and no wounds MDM MDM MDM Narrative Medical decision making narrative: Patient labs obtained were normal. CT of the head and neck were normal. Case was discussed with neurologist after obtaining an SOC consult. Neurologist recommends obtaining an MRI of the brain with and without contrast followed by ophthalmology evaluation. MRI of brain was ordered and will be pending. Care patient turned over to evening physician awaiting results and final disposition Lab Data Attestation: I reviewed the patient's lab results. Labs: Laboratory Results - last 24 hr 05/31/22 05/31/22 12:50 12:50 WBC 8.5 RBC 4.66 Hgb 12.9 Hct 39.5 MCV 84.8 MCH 27.7 MCHC 32.7 RDW Std Deviation 41.6 RDW Coeff of [place] 13.5 Plt Count 378 MPV 9.7 Immature Gran % (Auto) 0.700 Neut % (Auto) 68.0 Lymph % (Auto) 23.4 Nelson % (Auto) 5.2 Eos % (Auto) 2.1 Baso % (Auto) 0.6 Absolute Neuts (auto) 5.8 Absolute Lymphs (auto) 1.99 Nucleated RBC % 0 Sodium 139 Potassium 3.9 Chloride 107 Carbon Dioxide 25.0 Anion Gap 7 BUN 7 Creatinine 0.69 Estim Creat Clear Calc 99.47 Est GFR (MDRD) Af Amer 122 Est GFR (MDRD) Non-Af 101 BUN/Creatinine Ratio 10.1 Glucose 101 Calcium 8.7 Radiography Diagnostic Testing: Clinical Impression(s) from Imaging Studies Head/Neck CTA 05/31/22 12:40 IMPRESSION: Normal CTA Head and neck with contrast. Electronically Signed: Farhat Rodriguez MD at 13:38 EST , Discharge Plan Triage Chief Complaint: Headache ED Provider: Graham Du Dx/Rx/DC Orders Prescriptions: No Action sertraline [Zoloft] 50 mg Tablet 50 mg PO DAILY diphenhydramine HCl [Benadryl] 25 mg Capsule 25 mg PO DAILY naproxen 375 mg tablet 375 mg PO TID PRN PRN (Reason: pain) 7 Days Qty: 20 0RF Primary Care Provider: Alon Mcdonald Referrals: Care Physician,No Primary [Non-Staff] -
[2022-05-31 12:57] LABS: Absolute Lymphocyte Count 1.99 X10^3/uL (0.83-4.51); Absolute Neutrophil Count 5.8 X10^3/uL (2.0-7.7); Basophil# 0.05 X10^3/uL; Basophil% 0.6 % (0-1); Eosinophil# 0.18 X10^3/uL; Eosinophils% 2.1 % (0-5); Hematocrit 39.5 % (37-47); Hemoglobin 12.9 g/dL (12.0-15.0); Lymphocyte # 1.99 X10^3/ul (0.83-4.51); Lymphocyte % 23.4 % (19-41); Mean Corp Hgb Conc 32.7 g/dL (32-36); Mean Corpuscular Hgb 27.7 pg (27.0-32.0); Mean Corpuscular Volume 84.8 fL (81-99); Mean Platelet Vol. 9.7 fl (6.2-12.0); Monocyte# 0.44 X10^3/uL; Monocyte% 5.2 % (0-10); NRBC Flagged by Analyzer 0 % (0-5); Neutrophil # 5.78 X10^3/uL (2.7-7.7); Platelet Count 378 K/mm3 (150-450); RBC Distribution Width CV 13.5 % (11.6-14.6); RBC Distribution Width SD 41.6 fl (35.1-43.9); Red Blood Count 4.66 M/mm3 (4.2-5.4); White Blood Count 8.5 K/mm3 (4.4-11.0)
[2022-05-31 13:09] LABS: Anion Gap 7 (5-15); BUN 7 mg/dL (7-18); BUN/Creat Ratio 10.1 RATIO (10-20); Calcium,Total 8.7 mg/dL (8.5-10.1); Chloride 107 mmol/L (98-107); Creatinine, Serum 0.69 mg/dL (0.55-1.02); EST Glomerular Filtration Rate 101 mL/min (>60); Est Glom Filt Rate - Afr Amer 122 mL/min (>60); Estimated Creatinine Clearance 99.47 ml/min; Glucose 101 mg/dL (74-106); Potassium 3.9 mmol/L (3.5-5.1); Sodium Level 139 mmol/L (136-145)
[2022-05-31 13:13] VITALS: BP 124/84; PULSE 85; RESP 17; O2SAT 98
--- NOTE | 2022-05-31 13:56 | TELEMED_ITS ---
[facility] Telemed has confirmed receipt of a request for visit. This document confirms receipt of the order initiating the consult. To find the results of the consultation, please view the patient's reports for the scanned Telemed Consult.
[2022-05-31 16:01] VITALS: BP 134/78; PULSE 75; RESP 18; O2SAT 98
[2022-05-31 16:12] VITALS: BP 127/72; PULSE 77; RESP 17; O2SAT 98
--- NOTE | 2022-05-31 18:07 | ED.RN ---
MRI REPORTS 45 MIN ETA
--- NOTE | 2022-05-31 18:47 | MRI_ITS ---
INDICATION: headache, left dilated pupil EXAMINATION: MRI - MR Brain WO/W Contrast TECHNIQUE: Multiplanar and multisequence MR images of the brain were obtained without and with gadolinium. IV Contrast Dosage and Agent: None. COMPARISON: None. FINDINGS: BRAIN PARENCHYMA: No MRI evidence of hemorrhage. No evidence of acute infarct. No intracranial mass or mass effect. There is preservation of the whitt/white matter interface. Normal sella turcica, pituitary gland, infundibular stalk, optic chiasm and hypothalamus. Posterior fossa structures are unremarkable. INTERNAL AUDITORY CANALS: The internal auditory canals are well visualized and patent. No mass identified. CSF SPACES: Appropriate for age. No hydrocephalus. Basal cisterns are patent. VASCULAR SYSTEM: Normal flow voids in the major intracranial circulation. CALVARIUM, SKULL BASE, PARANASAL SINUSES AND MASTOID AIR CELLS: Small mucous retention cyst in right maxillary sinus No expansile changes. ORBITS: Both globes, extraocular muscles, optic nerves and retrobulbar fat appear unremarkable. MRI/Brain W/WO Contrast IMPRESSION: Negative MRI Brain and Interal Auditory Canals. Right maxillary sinusitis likely chronic Electronically Signed: Wes Jj MD at 19:58 EST Reading Location ID and State: [address] [place] [address] , Service support ,
[2022-05-31 20:34] VITALS: PULSE 78; RESP 16; O2SAT 98
== END 2022-05-31 20:49 | disposition home or self-care (01) ==
PROVIDERS: Emergency Provider Emergency Medicine; PCP Student in an Organized Health Care Education/Training Program; Visit Provider Emergency Medicine
DX: R51.9 Headache, unspecified (principal); H57.04 Mydriasis; Z99.89 Dependence on other enabling machines and devices; G47.30 Sleep apnea, unspecified; F32.A Depression, unspecified; F41.9 Anxiety disorder, unspecified
CPT/HCPCS: 70496; 70498; 70553; 80048; 85025; 99283; A9575; J7030; Q9967; A4216

== ENCOUNTER → 2023-06-28 | Outpatient (CLI) | payer MEDICAID, SELFPAY ==
--- OUTSIDE RECORDS SUMMARY | 2023-06-28 06:35 | XMS RPT_ITS | CCD ---
Author Name Unknown Address [address] [facility] [address] [place] [address] Organization [facility] Care Team Providers Care Cardiovascular Technologist Name Role Phone Selvin Randee WEISS Primary Care Provider Older OPERATIONS INSPECTOR.[place] WEISS Primary Care Provider Older OPERATIONS INSPECTOR.[place] WEISS Primary Care Provider Older OPERATIONS INSPECTOR.[place] WEISS Primary Care Provider Alon Troncoso DO Primary Care Provider ALON TRONCOSO Primary Care Unavailable SANDHYA DOHERTY Attending Unavailable ALON TRONCOSO Primary Care Unavailable SANDHYA DOHERTY Attending Unavailable ALON TRONCOSO Primary Care Unavailable SANDHYA DOHERTY Attending Unavailable ALON TRONCOSO Primary Care Unavailable SANDHYA DOHERTY Attending Unavailable ALON TRONCOSO Primary Care Unavailable ALON TRONCOSO Primary Care Unavailable CARMEN DA SILVA Attending Unavailable Allergies Allergy Classification Reported Allergen(s) Allergy Type Date of Onset Reaction(s) Facility (20 sources) Bee Sting; Translations: [BEE STING] All[facility] to substance 03-31-[facility] Medications Current Medications Medication Drug Class(es) Dates Sig (Normalized) Sig (Original) amoxicillin 875 mg / clavulanate 125 mg oral tablet (1 source) Penicillin-class Antibacterial Start: 04-24-2022 End: 04-29-2022 take 1 tablet by mouth twice daily amoxicillin-clav ulanic acid (AUGMENTIN) 875-125 mg per tablet Take 1 tablet by mouth twice daily for 5 days. 10 tablet 0 04/24/2022 04/29/2022 Active Completed/Discontinued Medications Medication Drug Class(es) Dates Sig (Normalized) Sig (Original) diphenhydrAMINE (20 sources) Histamine-1 Receptor Antagonist End: 10-31-2021 diphenhydramine HCl (BENADRYL ORAL) Take by mouth. 0 10/31/2021 Discontinued Problems Active Problems Problem Classification Problem Date Documented Date Episodic/Chronic Anxiety disorders (4 sources) Generalized anxiety disorder; Translations: [Generalized anxiety disorder] Onset: 08-09-2022 Chronic Contraceptive and procreative management (20 sources) Patient encounter status; Translations: [Encounter for other general counseling and advice on contraception] Onset: 08-16-2021 08-16-2021 Episodic Diabetes or abnormal glucose tolerance complicating ; childbirth; or the puerperium (20 sources) Gestational diabetes mellitus; Translations: [Gestational diabetes mellitus in , insulin controlled] Onset: 06-21-2021 06-21-2021 Episodic Essential hypertension (5 sources) Hypertensive disorder; Translations: [Essential (primary) hypertension] Onset: 08-09-2022 Chronic Hypertension complicating ; childbirth and the puerperium (1 source) pre-eclampsia; Translations: [Unspecified pre-eclampsia, complicating the puerperium] Episodic Mycoses (2 sources) Candidiasis of mouth; Translations: [Candidal stomatitis] Episodic Nutritional deficiencies (4 sources) Vitamin D deficiency; Translations: [Vitamin D deficiency, unspecified] Onset: 09-11-2022 Chronic Other circulatory disease (2 sources) Elevated blood-pressure reading without diagnosis of hypertension; Translations: [Elevated blood-pressure reading, without diagnosis of hypertension] Episodic Other complications of (20 sources) Maternal obesity complicating , childbirth and the puerperium, antepartum; Translations: [Obesity complicating , first trimester] Onset: 03-16-2021 03-16-2021 Chronic Other complications of (20 sources) Obesity; Translations: [Obesity complicating , unspecified trimester] Onset: 06-21-2021 06-21-2021 Chronic Other complications of (10 sources) History of gestational diabetes mellitus; Translations: [Supervision of with other poor reproductive or obstetric history, unspecified trimester] Onset: 03-16-2021 03-16-2021 Episodic Other ear and sense organ disorders (1 source) Tinnitus of left ear; Translations: [Tinnitus, left ear] Episodic Other female genital disorders (1 source) Lesion of vulva; Translations: [Other specified noninflammatory disorders of vulva and perineum] Episodic Other nutritional; endocrine; and metabolic disorders (8 sources) Severe obesity; Translations: [Morbid (severe) obesity due to excess calories] Chronic Other nutritional; endocrine; and metabolic disorders (1 source) Morbid (severe) obesity due to excess calories; Translations: [Class 3 severe obesity with body mass index (BMI) of 45.0 to 49.9 in adult, unspecified obesity type, unspecified whether serious comorbidity present (HCC)] Onset: 09-11-2022 Chronic Other nutritional; endocrine; and metabolic disorders (1 source) Body mass index (BMI) 45.0-49.9, adult; Translations: [Class 3 severe obesity with body mass index (BMI) of 45.0 to 49.9 in adult, unspecified obesity type, unspecified whether serious comorbidity present (HCC)] Onset: 09-11-2022 Chronic Other and delivery including normal (2 sources) state; Translations: [Encounter for routine follow-up] Episodic Other upper respiratory disease (1 source) Pain in throat; Translations: [Pain in throat] Episodic Other upper respiratory infections (1 source) Bacterial sinusitis; Translations: [Chronic sinusitis, unspecified] Chronic Residual codes; unclassified (20 sources) Sleep apnea; Translations: [Sleep apnea, unspecified] Onset: 11-24-2021 11-24-2021 Chronic Residual codes; unclassified (1 source) Gestation period, 30 weeks; Translations: [30 weeks gestation of ] Episodic Residual codes; unclassified (2 sources) Gestation period, 32 weeks; Translations: [32 weeks gestation of ] Episodic Residual codes; unclassified (1 source) Gestation period, 33 weeks; Translations: [33 weeks gestation of ] Episodic Residual codes; unclassified (2 sources) Gestation period, 34 weeks; Translations: [34 weeks gestation of ] Episodic Residual codes; unclassified (2 sources) Gestation period, 35 weeks; Translations: [35 weeks gestation of ] Episodic Residual codes; unclassified (2 sources) Gestation period, 36 weeks; Translations: [36 weeks gestation of ] Episodic Residual codes; unclassified (1 source) Gestation period, 37 weeks; Translations: [37 weeks gestation of ] Episodic Past or Other Problems Problem Classification Problem Date Documented Date Episodic/Chronic Diabetes mellitus without complication (15 sources) Increased glucose level; Translations: [Other abnormal glucose] Onset: 04-27-2021 04-27-2021 Episodic Other complications of (20 sources) High risk ; Translations: [Supervision of other high risk pregnancies, first trimester] Onset: 03-16-2021 03-21-2021 Episodic Other complications of (20 sources) Multigravida of advanced maternal age; Translations: [Supervision of elderly multigravida, second trimester] Onset: 06-21-2021 06-21-2021 Episodic Sexually transmitted infections (not HIV or hepatitis) (20 sources) Human papillomavirus deoxyribonucleic acid test positive, high risk on cervical specimen; Translations: [Cervical high risk human papillomavirus (HPV) DNA test positive] Onset: 04-07-2021 04-07-2021 Episodic Results Test Name Value Interpretation Reference Range Facil ity Vital Signs Date Time Vital Sign Value Performing Clinician Teri gonzalez 02-07-2023 07:39-0400 Body weight 128.1 kg Sandhya Doherty OPERATIONS INSPECTOR.DEPARTMENT SECRETARY Work Phone: [facility] 02-07-2023 07:39-0400 Diastolic blood pressure 60 mm[Hg] Sandhya Doherty OPERATIONS INSPECTOR.DEPARTMENT SECRETARY Work Phone: [facility] 02-07-2023 07:39-0400 Heart rate 60 /min Sandhya Doherty OPERATIONS INSPECTOR.DEPARTMENT SECRETARY Work Phone: [facility] 02-07-2023 07:39-0400 Respiratory rate 14 /min Sandhya Doherty OPERATIONS INSPECTOR.DEPARTMENT SECRETARY Work Phone: [facility] 02-07-2023 07:39-0400 Systolic blood pressure 120 mm[Hg] Sandhya Doherty OPERATIONS INSPECTOR.DEPARTMENT SECRETARY Work Phone: [facility] 09-11-2022 07:47-0400 Body weight 128.82 kg Sandhya Doherty OPERATIONS INSPECTOR.DEPARTMENT SECRETARY Work Phone: [facility] 09-11-2022 07:47-0400 Diastolic blood pressure 80 mm[Hg] Sandhya Doherty OPERATIONS INSPECTOR.DEPARTMENT SECRETARY Work Phone: [facility] 09-11-2022 07:47-0400 Heart rate 64 /min Sandhya Doherty OPERATIONS INSPECTOR.DEPARTMENT SECRETARY Work Phone: [facility] 09-11-2022 07:47-0400 Respiratory rate 16 /min Sandhya Doherty OPERATIONS INSPECTOR.DEPARTMENT SECRETARY Work Phone: [facility] 09-11-2022 07:47-0400 Systolic blood pressure 130 mm[Hg] Sandhya Doherty OPERATIONS INSPECTOR.DEPARTMENT SECRETARY Work Phone: [facility] 06-29-2022 16:59-0500 Body temperature 98.49 [degF] Krislyn Aberegg PA Work Phone: [facility] 06-29-2022 16:59-0500 Body weight 131.81 kg Krislyn Aberegg PA Work Phone: [facility] 06-29-2022 16:59-0500 Diastolic blood pressure 88 mm[Hg] Krislyn Aberegg PA Work Phone: [facility] 06-29-2022 16:59-0500 Heart rate 86 /min Krislyn Aberegg PA Work Phone: [facility] 06-29-2022 16:59-0500 Respiratory rate 18 /min Krislyn Aberegg PA Work Phone: [facility] 06-29-2022 16:59-0500 SaO2% (BldA) [Mass fraction] 97 % Krislyn Aberegg PA Work Phone: [facility] 06-29-2022 16:59-0500 Systolic blood pressure 134 mm[Hg] Krislyn Aberegg PA Work Phone: [facility] 06-09-2022 07:32-0500 Body weight 130.18 kg Sandhya Zurawick OPERATIONS INSPECTOR.DEPARTMENT SECRETARY Work Phone: [facility] 06-09-2022 07:32-0500 Diastolic blood pressure 80 mm[Hg] Sandhya Zurawick OPERATIONS INSPECTOR.DEPARTMENT SECRETARY Work Phone: [facility] 06-09-2022 07:32-0500 Heart rate 68 /min Sandhya Zurawick OPERATIONS INSPECTOR.DEPARTMENT SECRETARY Work Phone: [facility] 06-09-2022 07:32-0500 Respiratory rate 14 /min Sandhya Zurawick OPERATIONS INSPECTOR.DEPARTMENT SECRETARY Work Phone: [facility] 06-09-2022 07:32-0500 Systolic blood pressure 120 mm[Hg] Sandhya Zurawick OPERATIONS INSPECTOR.DEPARTMENT SECRETARY Work Phone: [facility] 05-10-2022 18:36-0500 Body height 166 cm Sandhya Zurawick OPERATIONS INSPECTOR.DEPARTMENT SECRETARY Work Phone: [facility] 05-10-2022 18:36-0500 Body weight 132.05 kg Sandhya Zurawick OPERATIONS INSPECTOR.DEPARTMENT SECRETARY Work Phone: [facility] 05-10-2022 18:36-0500 Diastolic blood pressure 90 mm[Hg] Sandhya Zurawick OPERATIONS INSPECTOR.DEPARTMENT SECRETARY Work Phone: [facility] 05-10-2022 18:36-0500 Heart rate 60 /min Sandhya Zurawick OPERATIONS INSPECTOR.DEPARTMENT SECRETARY Work Phone: [facility] 05-10-2022 18:36-0500 Respiratory rate 16 /min Sandhya Zurawick OPERATIONS INSPECTOR.DEPARTMENT SECRETARY Work Phone: [facility] 05-10-2022 18:36-0500 Systolic blood pressure 142 mm[Hg] Sandhya Zurawick OPERATIONS INSPECTOR.DEPARTMENT SECRETARY Work Phone: [facility] 04-24-2022 15:48-0500 Body temperature 97.9 [degF] Wes Pendlebury OPERATIONS INSPECTOR.DEPARTMENT SECRETARY Work Phone: [facility] 04-24-2022 15:48-0500 Body weight 131.45 kg Wes Pendlebury OPERATIONS INSPECTOR.DEPARTMENT SECRETARY Work Phone: [facility] 04-24-2022 15:48-0500 Diastolic blood pressure 90 mm[Hg] Wes Pendlebury OPERATIONS INSPECTOR.DEPARTMENT SECRETARY Work Phone: [facility] 04-24-2022 15:48-0500 Heart rate 103 /min Wes Pendlebury OPERATIONS INSPECTOR.DEPARTMENT SECRETARY Work Phone: [facility] 04-24-2022 15:48-0500 Respiratory rate 20 /min Wes Pendlebury OPERATIONS INSPECTOR.DEPARTMENT SECRETARY Work Phone: [facility] 04-24-2022 15:48-0500 SaO2% (BldA) [Mass fraction] 98 % Wes Pendlebury OPERATIONS INSPECTOR.DEPARTMENT SECRETARY Work Phone: [facility] 04-24-2022 15:48-0500 Systolic blood pressure 146 mm[Hg] Wes Pendlebury OPERATIONS INSPECTOR.DEPARTMENT SECRETARY Work Phone: [facility] 12-13-2021 15:47-0400 Body temperature 97.3 [degF] Nneka Sheikh OPERATIONS INSPECTOR.DEPARTMENT SECRETARY Work Phone: [facility] 12-13-2021 15:47-0400 Body weight 128.73 kg Nneka Sheikh OPERATIONS INSPECTOR.DEPARTMENT SECRETARY Work Phone: [facility] 12-13-2021 15:47-0400 Diastolic blood pressure 86 mm[Hg] Nneka Sheikh OPERATIONS INSPECTOR.DEPARTMENT SECRETARY Work Phone: [facility] 12-13-2021 15:47-0400 Heart rate 84 /min Nneka Sheikh OPERATIONS INSPECTOR.DEPARTMENT SECRETARY Work Phone: [facility] 12-13-2021 15:47-0400 Respiratory rate 18 /min Nneka Sheikh OPERATIONS INSPECTOR.DEPARTMENT SECRETARY Work Phone: [facility] 12-13-2021 15:47-0400 SaO2% (BldA) [Mass fraction] 98 % Nneka Sheikh OPERATIONS INSPECTOR.DEPARTMENT SECRETARY Work Phone: [facility] 12-13-2021 15:47-0400 Systolic blood pressure 142 mm[Hg] Nneka Sheikh OPERATIONS INSPECTOR.DEPARTMENT SECRETARY Work Phone: [facility] 06-16-2022 14:51-0400 Body height 165.1 cm Tanika Honeycutt MD Work Phone: [facility] 11-24-2021 14:51-0400 Body weight 124.74 kg Tanika Honeycutt MD Work Phone: [facility] 11-24-2021 14:51-0400 Diastolic blood pressure 82 mm[Hg] Tanika Honeycutt MD Work Phone: [facility] 11-24-2021 14:51-0400 Heart rate 80 /min Tanika Honeycutt MD Work Phone: [facility] 11-24-2021 14:51-0400 Respiratory rate 16 /min Tanika Honeycutt MD Work Phone: [facility] 11-24-2021 14:51-0400 Systolic blood pressure 116 mm[Hg] Tanika Honeycutt MD Work Phone: [facility] 10-31-2021 09:53-0400 Diastolic blood pressure 85 mm[Hg] Tanika Honeycutt MD Work Phone: [facility] 10-31-2021 09:53-0400 Systolic blood pressure 135 mm[Hg] Tanika Honeycutt MD Work Phone: [facility] 10-31-2021 09:33-0400 Body weight 126.19 kg Tanika Honeycutt MD Work Phone: [facility] 10-24-2021 08:20-0400 Body weight 130.46 kg Any Brandon MD Work Phone: [facility] 10-24-2021 08:20-0400 Diastolic blood pressure 80 mm[Hg] Any Brandon MD Work Phone: [facility] 10-24-2021 08:20-0400 Systolic blood pressure 122 mm[Hg] Any Brandon MD Work Phone: [facility] 10-17-2021 08:20-0400 Body weight 130.18 kg Tanika Honeycutt MD Work Phone: [facility] 10-17-2021 08:20-0400 Diastolic blood pressure 86 mm[Hg] Tanika Honeycutt MD Work Phone: [facility] 10-17-2021 08:20-0400 Systolic blood pressure 138 mm[Hg] Tanika Honeycutt MD Work Phone: [facility] 10-10-2021 08:52-0400 Body weight 132 kg Any Brandon MD Work Phone: [facility] 10-10-2021 08:52-0400 Diastolic blood pressure 76 mm[Hg] Any Brandon MD Work Phone: [facility] 10-10-2021 08:52-0400 Systolic blood pressure 126 mm[Hg] Any Brandon MD Work Phone: [facility] 10-06-2021 09:24-0400 Body weight 132.27 kg Miley Khan MD Work Phone: [facility] 10-06-2021 09:24-0400 Diastolic blood pressure 78 mm[Hg] Miley Khan MD Work Phone: [facility] 10-06-2021 09:24-0400 Systolic blood pressure 127 mm[Hg] Miley Khan MD Work Phone: [facility] 10-03-2021 08:20-0400 Body height 165.1 cm Dang White MD Work Phone: [facility] 10-03-2021 08:20-0400 Body weight 131.09 kg Dang White MD Work Phone: [facility] 10-03-2021 08:20-0400 Diastolic blood pressure 64 mm[Hg] Dang White MD Work Phone: [facility] 10-03-2021 08:20-0400 Systolic blood pressure 116 mm[Hg] Dang White MD Work Phone: [facility] 09-29-2021 09:07-0400 Body weight 131.45 kg Miley Khan MD Work Phone: [facility] 09-29-2021 09:07-0400 Diastolic blood pressure 62 mm[Hg] Miley Khan MD Work Phone: [facility] 09-29-2021 09:07-0400 Systolic blood pressure 117 mm[Hg] Miley Khan MD Work Phone: [facility] 09-26-2021 16:09-0400 Body height 165.1 cm Fredi Vitale MD Work Phone: [facility] 09-26-2021 16:09-0400 Body weight 133.36 kg Fredi Vitale MD Work Phone: [facility] 09-26-2021 16:09-0400 Diastolic blood pressure 78 mm[Hg] Fredi Vitale MD Work Phone: [facility] 09-26-2021 16:09-0400 Systolic blood pressure 138 mm[Hg] Fredi Vitale MD Work Phone: [facility] 09-21-2021 08:20-0400 Body weight 131.54 kg Any Brandon MD Work Phone: [facility] 09-21-2021 08:20-0400 Diastolic blood pressure 78 mm[Hg] Any Brandon MD Work Phone: [facility] 09-21-2021 08:20-0400 Systolic blood pressure 120 mm[Hg] Any Brandon MD Work Phone: [facility] 09-21-2021 07:50-0400 Body height 165.1 cm Dang White MD Work Phone: [facility] 09-21-2021 07:50-0400 Body weight 131.54 kg Dang White MD Work Phone: [facility] 09-09-2021 08:14-0400 Body weight 133.36 kg Miley Khan MD Work Phone: [facility] 09-09-2021 08:14-0400 Diastolic blood pressure 74 mm[Hg] Miley Khan MD Work Phone: [facility] 09-09-2021 08:14-0400 Systolic blood pressure 132 mm[Hg] Miley Khan MD Work Phone: [facility] Encounters Encounter Date Encounter Type Care Provider Facility Start: 05-10-2023 End: 05-10-2023 ambulatory SANDHYA DOHERTY Facility:[facility] Start: 04-21-2023 ambulatory Sandhya Doherty OPERATIONS INSPECTOR.DEPARTMENT SECRETARY Work Phone: [facility] Procedures Date Procedure Procedure Detail Performing Clinician Start: 06-29-2022 STREP A MOLECULAR (POC) Carlene Amaya PA-C Work Phone: Start: 10-24-2021 URINE OB DIP B/O Any gage MD Work Phone: Start: 10-24-2021 biophysical pr ofile non-stress testing Any Brandon MD Work Phone: Start: 10-17-2021 URINE OB DIP B/O Bonnie Honeycutt MD Work Phone: Start: 10-17-2021 biophysical pr ofile non-stress testing Any Brandon MD Work Phone: Start: 10-10-2021 URINE OB DIP B/O Any gage MD Work Phone: Start: 10-10-2021 biophysical pr ofile non-stress testing Any Brandon MD Work Phone: Start: 10-06-2021 URINE OB DIP B/O Miley Khan MD Work Phone: Start: 10-03-2021 biophysical pr ofile non-stress testing Any Brandon MD Work Phone: Start: 09-29-2021 URINE OB DIP B/O Miley Khan MD Work Phone: Start: 09-26-2021 biophysical pr ofile non-stress testing Any Brandon MD Work Phone: Start: 09-21-2021 URINE OB DIP B/O Any gage MD Work Phone: Start: 09-21-2021 Us preg uterus after 1st trimest 06/11 gestation Miley Khan MD Work Phone: Start: 09-09-2021 URINE OB DIP B/O Miley Khan MD Work Phone: Plan of Treatment Date Care Activity Detail Author Start: 08-17-2031 Urine microalbumin profile [facility] Start: 03-16-2026 HPV TESTING HPV TESTING [facility] Start: 03-16-2026 PAP TESTING PAP TESTING [facility] Start: 02-08-2024 ANNUAL PCP TEAM FLOUR WORKER MCKENNA DISEASE VISIT ANNUAL PCP TEAM CHRONIC DISEASE VISIT [facility] Start: 02-08-2024 BP CONTROLLED (<130/80) BP CONTROLLE D (<130/80) [facility] Start: 09-12-2023 ANNUAL PCP TEAM FLOUR WORKER MCKENNA DISEASE VISIT ANNUAL PCP TEAM CHRONIC DISEASE VISIT [facility] Start: 08-10-2023 ANNUAL PCP TEAM FLOUR WORKER MCKENNA DISEASE VISIT ANNUAL PCP TEAM CHRONIC DISEASE VISIT [facility] Start: 08-10-2023 BP CONTROLLED (<130/80) BP CONTROLLE D (<130/80) [facility] Start: 06-09-2023 ANNUAL PCP TEAM FLOUR WORKER MCKENNA DISEASE VISIT ANNUAL PCP TEAM CHRONIC DISEASE VISIT [facility] Start: 05-10-2023 COVID-19 VACCINE (3 - Booster for Yvette series) COVID-19 VACCINE (3 - Booster for Yvette series) [facility] Immunizations Immunization Date Immunization Notes Care Provider Fa cility 08-16-2021 tetanus toxoid, redu dyana diphtheria toxoid, and acellular pertussis vaccine, adsorbed Miley Khan MD Work Phone: [facility] 04-01-2020 influenza, injectabl e, quadrivalent, preservative free Miley Khan MD Work Phone: [facility] Work Phone: 04-01-2020 influenza virus vaccine, unspecified formulation Sandhya Doherty APRN.DEPARTMENT SECRETARY Work Phone: [facility] 01-30-2019 Influenza, injectabl e, Madin Karina Canine Kidney, preservative free, quadrivalent Miley Khan MD Work Phone: [facility] Work Phone: 03-12-2012 influenza virus vaccine, whole virus Miley Khan MD Work Phone: [facility] Work Phone: 03-25-2010 influenza virus vaccine, whole virus Miley Khan MD Work Phone: [facility] Work Phone: 03-12-2009 influenza virus vaccine, whole virus Miley Khan MD Work Phone: [facility] Work Phone: Payers Date Payer Category Payer Medicaid [id number] 2019 Medicaid [facility] MEDICAID [id number] 2019-Present [phone] [address] [place] [address] Medicaid [id number] 2019 Medicaid [id number] 2019 Medicaid [id number] Social History Date Type Detail Facility Start: 03-31-2015 End: 04-24-2022 Tobacco smoking status NHIS Never smoked tobacco [facility] Start: 03-31-2015 End: 04-24-2022 Tobacco use and exposure Smokeless tobacco non-user [facility] Start: 08-16-2021 End: 02-07-2023 Alcohol intake Ex-drinker (finding) [facility] Start: 02-19-2021 [facility] Start: 1985 Sex Assigned At Female [facility] Start: 07-17-2021 End: 05-10-2022 Exposure to SARS-CoV-2 (event) Not sure [facility] Start: 10-22-2021 End: 11-01-2021 Exposure to SARS-CoV-2 (event) Unable to assess [facility] Work Phone: Start: 04-19-2022 End: 05-08-2022 History SDOH Alcohol Frequency 2 [facility] Start: 04-19-2022 End: 05-08-2022 History SDOH Alcohol Std Drinks 98 [facility] Start: 04-19-2022 End: 11-28-2022 History SDOH Alcohol Binge 1 [facility] Start: 04-19-2022 End: 05-08-2022 History SDOH Social Connections Phone 5 [facility] Start: 04-19-2022 History SDOH Social Connections Living 8 [facility] Start: 04-19-2022 End: 05-08-2022 History SDOH Physical Activity DPW 0 [facility] Start: 04-19-2022 End: 05-08-2022 History SDOH Stress 4 [facility] Start: 05-08-2022 History SDOH Financial 3 [facility] Start: 05-08-2022 End: 10-20-2022 History of Social function [facility] Start: 05-08-2022 End: 10-20-2022 Social connection and isolation panel [facility] How often do you att end druze or nondenominational services? Patient refused [facility] Do you belong to any clubs or organizations such as druze groups, unions, fraternal or athletic groups, or school groups? No [facility] Are you now , , , , never or living with a partner? [facility] How often to you hav e a drink containing alcohol? Monthly or less [facility] How often do you hav e 6 or more drinks on 1 occasion? Never [facility] How hard is it for y ou to pay for the very basics like food, housing, medical care, and heating Somewhat hard [facility] Do you feel stress - tense, restless, nervous, or anxious, or unable to sleep at night because your mind is troubled all the time - these days [OSQ] Rather much [facility] (I/We) worried wheselena er (my/our) food would run out before (I/we) got money to buy more. Sometimes true [facility] The food that (I/we) bought just didn't last, and (I/we) didn't have money to get more. Never true [facility] In the past 12 month s, was there a time when you were not able to pay the mortgage or rent on time? Yes [facility] Start: 2021 Gender identity Identifies as female gender (finding) [facility] Start: 2021 Sexual orientation Heterosexual (finding) [facility] Medical Equipment Procedure Code Equipment Code Equipment Origin al Text Equipment Identifier Dates Start: 05-03-2021 End: 11-24-2021 Clinical Notes 05-03-2021 to 05-10-2023 Telephone Encounter - Sandhya Doherty APRN.CNP - 04/23/2023 11:48 AM ESTTelephone Encounter - Guille GiovanaDIANA go - 02/08/2023 8:12 AM EDTSandhya Doherty APRN.CNP - 02/07/2023 7:20 AM EDT Note Date & Type Note Facility 05-10-2023 Note HNO ID: [id number] Author: Sandhya Doherty APRN.CNP Service: ? Author Type: Nurse Practitioner Type: Progress Notes Filed: 05/10/2023 7:55 AM Note Text: Chief Complaint Patient presents with: 3 month f/up HPI Paz Wilder is a 38 year old female who presents here today for Above Complaints. Paz is an established patient of Dr. Troncoso, DO and myself. Concerns today... Weight management -- Started on Adipex regimen in August. Initial weight: 294 lbs Weight at appt on 02/07: 282 lbs Weight today: 288 lbs , was off medication x 1 month due to unable to get it and busy schedule. Was down to 270 lbs and then gained a lot back after being off of medication x 1 month. No exercise Diet is good -- portion control is better the last few months. She admits that around her menstrual cycle it is hard to eat healthy. Would like to continue on regimen if able -- does not want to give up yet. Mood-- Stable and well controlled on zoloft regimen. No other concerns or complaints HM-- Due for first mammogram in February, pt aware. Will order at next office visit. Past medical history, appointments, medications, allergies reviewed. Previous Medical History PAST MEDICAL HISTORY Diagnosis Date Anxiety History of gestational diabetes in prior , currently 03/16/2021 03/16/21- GDM A2 with previous . Gina Vieyra APRN.ANDIM Previous Surgical History PAST SURGICAL HISTORY Procedure Laterality Date LAPAROSCOPY W/RMVL ADNEXAL STRUCTURES Bilateral 12/08/2021 salpingectomy for sterilization NONE Family History FAMILY HISTORY Problem Relation Age of Onset Stroke Father Patient Allergies ALLERGIES Allergen Reactions Bee Sting Hives Current Medications Current Outpatient Medications on File Prior to Visit Medication Sig Phentermine HCl (ADIPEX-P) 37.5 mg capsule Take 1 capsule by mouth once daily for 30 days. BMI 44.74 sertraline (ZOLOFT) 100 mg tablet TAKE 1 TABLET BY MOUTH EVERY DAY sertraline (ZOLOFT) 100 mg tablet Take 1 tablet by mouth once daily. montelukast (SINGULAIR) 10 mg tablet Take 1 tablet by mouth daily at bedtime. cholecalciferol, Vitamin D3, (VITAMIN D3) 1,250 mcg (50,000 unit) cap capsule Take 1 capsule by mouth one time a week. No current facility-administered medications on file prior to visit. Social History Social History Tobacco Use Smoking status: Never Smokeless tobacco: Never Vaping Use Vaping Use: Never used Substance Use Topics Alcohol use: Not Currently Drug use: Never REVIEW OF SYSTEMS: as above Reviewed relevant PMHx, PSHx, Social Hx, current medications and allergies. Review of Symptoms REVIEW OF SYSTEMS See HPI. EXAM: BP 138/74 (BP Site: Left Arm, BP Position: Sitting, BP Cuff Size: Large Adult) Pulse 72 Wt 130.9 kg (288 lb 9.6 oz) LMP 06/15/2022 SpO2 98% BMI 47.51 kg/m? General Appearance: Well appearing, alert, in no acute distress, well-hydrated, well nourished.. Skin: Skin color, texture, turgor normal, no suspicious rashes or lesions. Head: Normocephalic, no masses, lesions, tenderness or abnormalities. Lungs: Lungs clear to auscultation. No wheezing, rhonchi, rales.. Heart: RRR without murmur, gallop, or rubs. No ectopy. Health Maintenance List Hepatitis B Vaccine(1 of 3 - 3-dose series) Never done Covid-19 Vaccine( season) due on 02/09/2023 Annual PCP Team Chronic Disease Visit due on 02/08/2024 BP Controlled (<130/80) due on 02/08/2024 Pap Testing due on 03/16/2026 HPV Testing due on 03/16/2026 DTaP,Tdap,Td Vaccine(2 - Td or Tdap) due on 08/17/2031 Influenza Vaccine Completed Depression Assessment Completed Hepatitis C Screening Completed HIV Screening Completed HPV Vaccine Aged Out ASSESSMENT/PLAN: 1. Wellness examination - ICD9: V70.0, ICD10: Z00.00 (primary diagnosis) - Counseled on healthy diet and regular exercise - Calcium intake with supplements or by diet of 1000 mg/day for under 50, 8673-1539 mg/day for 50+ - Depression screening tool completed and reviewed with patient. Based on score and interview, patient is already diagnosed with depression and recommended no further intervention at this time and continuing current plan of care. - Follow up for annual exam in one year - First mammogram due in February, will order at next office visit. - LIPID PANEL BASIC - COMP METABOLIC PANEL - CBC + DIFF - HGB A1C 2. Vitamin D deficiency - ICD9: 268.9, ICD10: E55.9 Refilled. - CHOLECALCIFEROL (VITAMIN D3) 1,250 MCG (50,000 UNIT) CAPSULE - VITAMIN D 25 HYDROXY 3. Class 3 severe obesity with body mass index (BMI) of 45.0 to 49.9 in adult, unspecified obesity type, unspecified whether serious comorbidity present (HCC) - ICD9: 278.01, V85.42, ICD10: E66.01, Z68.42 Continue on adipex regimen. Pt aware and agreeable that if she does not lose any weight these next 3 months, we need to discontinue regim (more content not included)... [facility] 04-23-2023 Miscellaneous Notes PDMP website checked and validated. All prescriptions have been APPROPRIATELY filled. No suspicious activity was identified. 04/23/2023 by Sandhya Doherty APRN.CNP The following approved medication requests have been transmitted electronically. Requested Prescriptions Signed Prescriptions Disp Refills Phentermine HCl (ADIPEX-P) 37.5 mg capsule 30 capsule 0 Sig: Take 1 capsule by mouth once daily for 30 days. BMI 44.74 Sandhya Doherty APRN.CNP documented in this encounter [facility] 02-08-2023 Miscellaneous Notes Patient phones requesting refills as follows: Requested Prescriptions Pending Prescriptions Disp Refills cholecalciferol, Vitamin D3, (VITAMIN D3) 1,250 mcg (50,000 unit) cap capsule 4 capsule 2 Sig: Take 1 capsule by mouth one time a week. VELIA-02/07/23 Labs-05/26/22 NOV-05/10/23 Please review and advise. Giovana Han LPN documented in this encounter [facility] 02-07-2023 Note HNO ID: [id number] Author: Sandhya Doherty APRN.DEPARTMENT SECRETARY Service: ? Author Type: Nurse Practitioner Type: Progress Notes Filed: 02/07/2023 10:08 AM Note Text: Chief Complaint Patient presents with: adipex check HPI Paz Wilder is a 37 year old female who presents here today for Above Complaints.. Amber is an established patient of Dr. Troncoso, DO and myself. Concerns today... Weight management -- Started on Adipex on 08/09/22. Hit 5% weight loss at 3 month amina to continue regimen however pt has been without medication x 6-8 weeks due to unable to get refilled. Pt admits to poor eating habits recently due to on the go constantly. Pt does report much more activity and exercise than normal. Initial starting weight: 294 lbs Weight at last appointment in October: 271 lbs. Pt reports lowest reading she got down to at home was 260 lbs and was able to maintain this for awhile until she was unable to get medication refilled. Current weight: 282 lbs Goal weight: under 200 lbs Mood-- Prescribed Zoloft 100 mg daily. Has also been without regimen for a few months. Recent increase in stressors due to planning wedding and work changes. Would like to get back on medication regimen. Feels stress should be improving now that everything is settling done and wedding is over. HTN -- Has not been taking lisinopril since August. Trying to come off this medication completely if able. BP readings at home are stable and normal. Hoping weight loss will help. Last 14 Encounter BP Readings: Date: BP: 02/07/2023 120/60 10/20/2022 130/80 09/11/2022 130/80 08/09/2022 120/70 06/29/2022 134/88 06/09/2022 120/80 05/10/2022 142/90 04/24/2022 146/90 12/13/2021 142/86 11/24/2021 116/82 10/31/2021 135/85 10/24/2021 122/80 10/17/2021 138/86 10/10/2021 126/76 Past medical history, appointments, medications, allergies reviewed. Previous Medical History PAST MEDICAL HISTORY Diagnosis Date Anxiety History of gestational diabetes in prior , currently 03/16/2021 03/16/21- GDM A2 with previous . Gina Vieyra APRN.CNM Previous Surgical History PAST SURGICAL HISTORY Procedure Laterality Date LAPAROSCOPY W/RMVL ADNEXAL STRUCTURES Bilateral 12/08/2021 salpingectomy for sterilization NONE Family History FAMILY HISTORY Problem Relation Age of Onset Stroke Father Patient Allergies ALLERGIES Allergen Reactions Bee Sting Hives Current Medications Current Outpatient Medications on File Prior to Visit Medication Sig montelukast (SINGULAIR) 10 mg tablet Take 1 tablet by mouth daily at bedtime. cholecalciferol, Vitamin D3, (VITAMIN D3) 1,250 mcg (50,000 unit) cap capsule Take 1 capsule by mouth one time a week. sertraline (ZOLOFT) 100 mg tablet Take 1 tablet by mouth once daily. lisinopril (ZESTRIL, PRINIVIL) 5 mg tablet Take 1 tablet by mouth once daily. No current facility-administered medications on file prior to visit. Social History Social History Tobacco Use Smoking status: Never Smokeless tobacco: Never Vaping Use Vaping Use: Never used Substance Use Topics Alcohol use: Not Currently Drug use: Never REVIEW OF SYSTEMS: as above Reviewed relevant PMHx, PSHx, Social Hx, current medications and allergies. Review of Symptoms REVIEW OF SYSTEMS See HPI. All other systems are negative. EXAM: BP 120/60 (BP Site: Left Arm, BP Position: Sitting, BP Cuff Size: Large Adult) Pulse 60 Resp 14 Wt 128.1 kg (282 lb 6.4 oz) LMP 06/15/2022 BMI 46.49 kg/m? General Appearance: Well appearing, alert, in no acute distress, well-hydrated, well nourished.. Skin: Skin color, texture, turgor normal, no suspicious rashes or lesions. Head: Normocephalic, no masses, lesions, tenderness or abnormalities. Lungs: Lungs clear to auscultation. No wheezing, rhonchi, rales.. Heart: RRR without murmur, gallop, or rubs. No ectopy. Health Maintenance List HEPATITIS B(1 of 3 - 3-dose series) Never done COVID-19 VACCINE(3 - Booster for Yvette series) due on 05/10/2023 INFLUENZA(1) due on 02/09/2023 BP CONTROLLED (<130/80) due on 08/10/2023 ANNUAL PCP TEAM CHRONIC DISEASE VISIT due on 10/21/2023 PAP TESTING due on 03/16/2026 HPV TESTING due on 03/16/2026 DTAP,TDAP,TD(2 - Td or Tdap) due on 08/17/2031 DEPRESSION ASSESSMENT Completed HEPATITIS C SCREENING Completed HIV SCREENING Completed HPV VACCINE Aged Out ASSESSMENT/PLAN: 1. Class 3 severe obesity with body mass index (BMI) of 45.0 to 49.9 in adult, unspecified obesity type, unspecified whether serious comorbidity present (HCC) - ICD9: 278.01, V85.42, ICD10: E66.01, Z68.42 (primary diagnosis) Weight increasing - Behavioral intervention and - Pharmacological intervention - restart adipex regimen. Pt aware of side effects and needed weight loss to continue on regimen. Tolerated well with great results in the past. - PHENTERMINE 37.5 MG CAPSULE PDMP website (more content not included)... [facility] 02-07-2023 History of Presen t illness Narrative Chief Complaint Patient presents with: adipex check HPI Paz Wilder is a 37 year old female who presents here today for Above Complaints.. Amber is an established patient of Dr. Troncoso, DO and myself. Concerns today... Weight management -- Started on Adipex on 08/09/22. Hit 5% weight loss at 3 month amina to continue regimen however pt has been without medication x 6-8 weeks due to unable to get refilled. Pt admits to poor eating habits recently due to on the go constantly. Pt does report much more activity and exercise than normal. Initial starting weight: 294 lbs Weight at last appointment in October: 271 lbs. Pt reports lowest reading she got down to at home was 260 lbs and was able to maintain this for awhile until she was unable to get medication refilled. Current weight: 282 lbs Goal weight: under 200 lbs Mood-- Prescribed Zoloft 100 mg daily. Has also been without regimen for a few months. Recent increase in stressors due to planning wedding and work changes. Would like to get back on medication regimen. Feels stress should be improving now that everything is settling done and wedding is over. HTN -- Has not been taking lisinopril since August. Trying to come off this medication completely if able. BP readings at home are stable and normal. Hoping weight loss will help. Last 14 Encounter BP Readings: Date: BP: 02/07/2023 120/60 10/20/2022 130/80 09/11/2022 130/80 08/09/2022 120/70 06/29/2022 134/88 06/09/2022 120/80 05/10/2022 142/90 04/24/2022 146/90 12/13/2021 142/86 11/24/2021 116/82 10/31/2021 135/85 10/24/2021 122/80 10/17/2021 138/86 10/10/2021 126/76 Past medical history, appointments, medications, allergies reviewed. Previous Medical History PAST MEDICAL HISTORY Diagnosis Date Anxiety History of gestational diabetes in prior , currently 03/16/2021 03/16/21- GDM A2 with previous . Gina Vieyra APRN.ANDIM Previous Surgical History PAST SURGICAL HISTORY Procedure Laterality Date LAPAROSCOPY W/RMVL ADNEXAL STRUCTURES Bilateral 12/08/2021 salpingectomy for sterilization NONE Family History FAMILY HISTORY Problem Relation Age of Onset Stroke Father Patient Allergies ALLERGIES Allergen Reactions Bee Sting Hives Current Medications Current Outpatient Medications on File Prior to Visit Medication Sig montelukast (SINGULAIR) 10 mg tablet Take 1 tablet by mouth daily at bedtime. cholecalciferol, Vitamin D3, (VITAMIN D3) 1,250 mcg (50,000 unit) cap capsule Take 1 capsule by mouth one time a week. sertraline (ZOLOFT) 100 mg tablet Take 1 tablet by mouth once daily. lisinopril (ZESTRIL, PRINIVIL) 5 mg tablet Take 1 tablet by mouth once daily. No current facility-administered medications on file prior to visit. Social History Social History Tobacco Use Smoking status: Never Smokeless tobacco: Never Vaping Use Vaping Use: Never used Substance Use Topics Alcohol use: Not Currently Drug use: Never REVIEW OF SYSTEMS: as above Reviewed relevant PMHx, PSHx, Social Hx, current medications and allergies. Review of Symptoms REVIEW OF SYSTEMS See HPI. All other systems are negative. EXAM: BP 120/60 (BP Site: Left Arm, BP Position: Sitting, BP Cuff Size: Large Adult) Pulse 60 Resp 14 Wt 128.1 kg (282 lb 6.4 oz) LMP 06/15/2022 BMI 46.49 kg/m General Appearance: Well appearing, alert, in no acute distress, well-hydrated, well nourished.. Skin: Skin color, texture, turgor normal, no suspicious rashes or lesions. Head: Normocephalic, no masses, lesions, tenderness or abnormalities. Lungs: Lungs clear to auscultation. No wheezing, rhonchi, rales.. Heart: RRR without murmur, gallop, or rubs. No ectopy. Health Maintenance List HEPATITIS B(1 of 3 - 3-dose series) Never done COVID-19 VACCINE(3 - Booster for Yvette series) due on 05/10/2023 INFLUENZA(1) due on 02/09/2023 BP CONTROLLED (<130/80) due on 08/10/2023 ANNUAL PCP TEAM CHRONIC DISEASE VISIT due on 10/21/2023 PAP TESTING due on 03/16/2026 HPV TESTING due on 03/16/2026 DTAP,TDAP,TD(2 - Td or Tdap) due on 08/17/2031 DEPRESSION ASSESSMENT Completed HEPATITIS C SCREENING Completed HIV SCREENING Completed HPV VACCINE Aged Out ASSESSMENT/PLAN: 1. Class 3 severe obesity with body mass index (BMI) of 45.0 to 49.9 in adult, unspecified obesity type, unspecified whether serious comorbidity present (HCC) - ICD9: 278.01, V85.42, ICD10: E66.01, Z68.42 (primary diagnosis) Weight increasing - Behavioral intervention and - Pharmacological intervention - restart adipex regimen. Pt aware of side effects and needed weight loss to continue on regimen. Tolerated well with great results in the past. - PHENTERMINE 37.5 MG CAPSULE PDMP website checked and validated. All prescriptions have been APPROPRIATELY filled. No suspicious activity was identified. 02/07/2023 by Sandhya Doherty APRN.CNP 2. Prediabetes - ICD9: 790.29, ICD10: R73.03 See above. - PHENTERMINE 37.5 MG CAPSULE 3. Hypertension, unspecified type - ICD9: 401.9, ICD10: I10 - Controlled without medication regimen x 5 months. - Home blood pressure readings controlled - Discontinued lisinopril. - Recommend home blood pressure monitoring, to bring results to next visit - Encouraged sodium restriction, DASH or Mediterranean diet - Recommend regular aerobic exercise 4. RADHA (generalized anxiety disorder) - ICD9: 300.02, ICD10: F41.1 Restart Zoloft regimen. RTO if no improvement in symptoms, especially with decrease in stressors. - SERTRALINE 100 MG TABLET RTO as needed and in 3 months for adipex check. Prescription instructions reviewed with patient as applicable. Potential red flag symptoms discussed with the patient. Reviewed appropriate action plan to take if red flag symptoms occur. Patient agreeable to treatment plan. Sandhya Aguilera APRN.ABHISHE[address] [place] [address] documented in this encounter [facility] 10-20-2022 Note HNO ID: [id number] Author: Carmen Da Silva APRN.CNP Service: ? Author Type: Nurse Practitioner Type: Progress Notes Filed: 10/24/2022 9:50 PM Note Text: Chief Complaint Patient presents with: adipex check HPI Paz Wilder is a 37 year old female who presents here today for Above Complaints.. Started adipex about 3 months ago. Was at 294 in August, now 271#. Feels great, noticing difference in your face and clothing fit. Has been walking for exercise and the weather helps. Watching portions, eating more veggies, drinking plenty of water. Adipex has helped with her appetite. No heart palpitations, no sob. Denies side effects. No swelling hands or feet. Also would like recommendations on allergy medication, Watery and itchy eyes, nasal drainage, post-nasal drip cough, turns into scratchy throat. Worse when outside and it's baseball season for her kids and she would like to try something else. Has tried all OTC meds, currently taking xyzal but it's not as effective as when first started it. Past medical history, appointments, medications, allergies reviewed. Previous Medical History PAST MEDICAL HISTORY Diagnosis Date Anxiety History of gestational diabetes in prior , currently 03/16/2021 03/16/21- GDM A2 with previous . Gina Vieyra APRN.ANDREW Previous Surgical History PAST SURGICAL HISTORY Procedure Laterality Date LAPAROSCOPY W/RMVL ADNEXAL STRUCTURES Bilateral 12/08/2021 salpingectomy for sterilization NONE Family History FAMILY HISTORY Problem Relation Age of Onset Stroke Father Patient Allergies ALLERGIES Allergen Reactions Bee Sting Hives Current Medications Current Outpatient Medications on File Prior to Visit Medication Sig Phentermine HCl (ADIPEX-P) 37.5 mg capsule Take 1 capsule by mouth once daily for 30 days. cholecalciferol, Vitamin D3, (VITAMIN D3) 1,250 mcg (50,000 unit) cap capsule Take 1 capsule by mouth one time a week. sertraline (ZOLOFT) 100 mg tablet Take 1 tablet by mouth once daily. lisinopril (ZESTRIL, PRINIVIL) 5 mg tablet Take 1 tablet by mouth once daily. multivitamin (CLASSIC ) 28 mg iron- 800 mcg tab(s) Take 1 tablet by mouth once daily. No current facility-administered medications on file prior to visit. Social History Social History Tobacco Use Smoking status: Never Smokeless tobacco: Never Vaping Use Vaping Use: Never used Substance Use Topics Alcohol use: Not Currently Drug use: Never Review of Symptoms REVIEW OF SYSTEMS See HPI EXAM: BP 130/80 (BP Site: Left Arm, BP Position: Sitting, BP Cuff Size: Large Adult) Pulse 64 Resp 14 Wt 123.3 kg (271 lb 12.8 oz) LMP 06/15/2022 BMI 44.74 kg/m? General Appearance: Well appearing, alert, in no acute distress, well-hydrated, well nourished. and Morbidly obese. Skin: Skin color, texture, turgor normal, no suspicious rashes or lesions. Eyes: Anicteric sclera. Pupils are equally round and reactive to light. Extraocular movements are intact. . Ears: External ears normal, canals clear. Nose/Sinuses: Nares normal, septum midline, mucosa normal, no drainage or sinus tenderness. Lungs: Lungs clear to auscultation. No wheezing, rhonchi, rales.. Heart: RRR without murmur, gallop, or rubs. No ectopy. Health Maintenance List HEPATITIS B(1 of 3 - 3-dose series) Never done COVID-19 VACCINE(3 - Booster for Yvetet series) due on 05/10/2023 INFLUENZA(Season Ended) due on 02/09/2023 BP CONTROLLED (<130/80) due on 08/10/2023 ANNUAL PCP TEAM CHRONIC DISEASE VISIT due on 09/12/2023 PAP TESTING due on 03/16/2026 HPV TESTING due on 03/16/2026 DTAP,TDAP,TD(2 - Td or Tdap) due on 08/17/2031 DEPRESSION ASSESSMENT Completed HEPATITIS C SCREENING Completed HIV SCREENING Completed Data reviewed Previous records, office notes, [facility] report PDMP website checked and validated. All prescriptions have been APPROPRIATELY filled. No suspicious activity was identified. 10/20/2022 by Carmen Da Silva CNP. ASSESSMENT/PLAN: 1. Class 3 severe obesity with body mass index (BMI) of 45.0 to 49.9 in adult, unspecified obesity type, unspecified whether serious comorbidity present (HCC) - ICD9: 278.01, V85.42, ICD10: E66.01, Z68.42 (primary diagnosis) Continue working on diet and exercise. Tolerating well. Refill given, follow up in 3 months in office. - PHENTERMINE 37.5 MG CAPSULE 2. Prediabetes - ICD9: 790.29, ICD10: R73.03 Continue working on diet and exercise. Tolerating well. Refill given, follow up in 3 months in office. - PHENTERMINE 37.5 MG CAPSULE Carmen Da Silva APRN.DEPARTMENT SECRETARY [facility] 10-19-2022 Miscellaneous Notes Patient calls back and is scheduled with Carmen on 10/20/2022. Evelin Panda RN Since I'm going to be out of the office starting next Wednesday 10/25 for 6 weeks, would we be able to get her in to the office prior to this and we can do her weight and BP check just a little early and then I can send in her Adipex and just date it for 11/09? Carmen Da Silva APRN.CNP See patient message below. Julissa Basurto LPN documented in this encounter [facility] 09-11-2022 Miscellaneous Notes PDMP website checked and validated. All prescriptions have been APPROPRIATELY filled. No suspicious activity was identified. 09/11/2022 by Sandhya Doherty APRN.CNP The following approved medication requests have been transmitted electronically. Requested Prescriptions Signed Prescriptions Disp Refills Phentermine HCl (ADIPEX-P) 37.5 mg capsule 30 capsule 0 Sig: Take 1 capsule by mouth once daily for 30 days. Sandhya Doherty APRN.CNP Pt requesting Rx to go to [facility] due to pricing. Update pt via [employer] once complete. Aria Decker Ma documented in this encounter [facility] 09-11-2022 Note HNO ID: [id number] Author: Sandhya Doherty APRN.CNP Service: ? Author Type: Nurse Practitioner Type: Progress Notes Filed: 09/11/2022 7:52 AM Note Text: Chief Complaint Patient presents with: Weight Management HPI Paz Wilder is a 37 year old female who presents here today for Above Complaints. Paz is an established patient of dr. Troncoso, and myself. Concerns today.. Weight management -- Started on Adipex regimen on 08/09/22. This is first time on Adipex. Pt is tolerating great, no side effects at all besides very mild dry mouth. Making sure she eats something very small and nutritious at meal times vs not eating anything even though no appetite. Was down about 13 lbs on scale at home, admits she ate big dinner last night. Discussed change in [place] guidelines for Adipex. Starting weight: 294 lbs Weight today (after 1 month): 284 lbs Current BMI: 46.75 Past medical history, appointments, medications, allergies reviewed. Previous Medical History PAST MEDICAL HISTORY Diagnosis Date Anxiety History of gestational diabetes in prior , currently 03/16/2021 03/16/21- GDM A2 with previous . Gina Vieyra APRN.ANDREW Previous Surgical History PAST SURGICAL HISTORY Procedure Laterality Date LAPAROSCOPY W/RMVL ADNEXAL STRUCTURES Bilateral 12/08/2021 salpingectomy for sterilization NONE Family History FAMILY HISTORY Problem Relation Age of Onset Stroke Father Patient Allergies ALLERGIES Allergen Reactions Bee Sting Hives Current Medications Current Outpatient Medications on File Prior to Visit Medication Sig sertraline (ZOLOFT) 100 mg tablet Take 1 tablet by mouth once daily. lisinopril (ZESTRIL, PRINIVIL) 5 mg tablet Take 1 tablet by mouth once daily. cholecalciferol, Vitamin D3, (VITAMIN D3) 1,250 mcg (50,000 unit) cap capsule Take 1 capsule by mouth one time a week. multivitamin (CLASSIC ) 28 mg iron- 800 mcg tab(s) Take 1 tablet by mouth once daily. No current facility-administered medications on file prior to visit. Social History Social History Tobacco Use Smoking status: Never Smokeless tobacco: Never Vaping Use Vaping Use: Never used Substance Use Topics Alcohol use: Not Currently Drug use: Never REVIEW OF SYSTEMS: as above Reviewed relevant PMHx, PSHx, Social Hx, current medications and allergies. Review of Symptoms REVIEW OF SYSTEMS See HPI. All other systems are negative. EXAM: BP 130/80 Pulse 64 Resp 16 Wt 128.8 kg (284 lb) LMP 06/15/2022 BMI 46.75 kg/m? General Appearance: Well appearing, alert, in no acute distress, well-hydrated, well nourished.. Skin: Skin color, texture, turgor normal, no suspicious rashes or lesions. Head: Normocephalic, no masses, lesions, tenderness or abnormalities. Lungs: Lungs clear to auscultation. No wheezing, rhonchi, rales.. Heart: RRR without murmur, gallop, or rubs. No ectopy. Health Maintenance List HEPATITIS B(1 of 3 - 3-dose series) Never done COVID-19 VACCINE(3 - Booster for Yvette series) due on 05/10/2023 INFLUENZA(Season Ended) due on 02/09/2023 ANNUAL PCP TEAM CHRONIC DISEASE VISIT due on 08/10/2023 BP CONTROLLED (<130/80) due on 08/10/2023 PAP TESTING due on 03/16/2026 HPV TESTING due on 03/16/2026 DTAP,TDAP,TD(2 - Td or Tdap) due on 08/17/2031 DEPRESSION ASSESSMENT Completed HEPATITIS C SCREENING Completed HIV SCREENING Completed ASSESSMENT/PLAN: 1. Class 3 severe obesity with body mass index (BMI) of 45.0 to 49.9 in adult, unspecified obesity type, unspecified whether serious comorbidity present (HCC) - ICD9: 278.01, V85.42, ICD10: E66.01, Z68.42 (primary diagnosis) Weight decreasing Discussed new [place] guidelines for Adipex regimen -- pt agreeable and understands. Pt aware of needed 10% weight loss in the initial 3 months to continue on this medication. Pt aware of needing in office appointments every 3 months to monitor and assess. - Behavioral intervention, - Pharmacological intervention, - Eat well program, and - Continue current medications - PHENTERMINE 37.5 MG CAPSULE PDMP website checked and validated. All prescriptions have been APPROPRIATELY filled. No suspicious activity was identified. 09/11/2022 by Sandhya Doherty APRN.DEPARTMENT SECRETARY 2. Prediabetes - ICD9: 790.29, ICD10: R73.03 See above. - PHENTERMINE 37.5 MG CAPSULE 3. Vitamin D deficiency - ICD9: 268.9, ICD10: E55.9 Refilled. - CHOLECALCIFEROL (VITAMIN D3) 1,250 MCG (50,000 UNIT) CAPSULE RTO in 2 months, sooner if needed. Prescription instructions reviewed with patient as applicable. Potential red flag symptoms discussed with the patient. Reviewed appropriate action plan to take if red flag symptoms occur. Patient agreeable to treatment plan. Sandhya Aguilera APRN.DEPARTMENT SECRETARY [address] [place] [address] [facility] 09-11-2022 History of Presen t illness Narrative Chief Complaint Patient presents with: Weight Management HPI Paz Wilder is a 37 year old female who presents here today for Above Complaints. Paz is an established patient of dr. Troncoso, and myself. Concerns today.. Weight management -- Started on Adipex regimen on 08/09/22. This is first time on Adipex. Pt is tolerating great, no side effects at all besides very mild dry mouth. Making sure she eats something very small and nutritious at meal times vs not eating anything even though no appetite. Was down about 13 lbs on scale at home, admits she ate big dinner last night. Discussed change in [place] guidelines for Adipex. Starting weight: 294 lbs Weight today (after 1 month): 284 lbs Current BMI: 46.75 Past medical history, appointments, medications, allergies reviewed. Previous Medical History PAST MEDICAL HISTORY Diagnosis Date Anxiety History of gestational diabetes in prior , currently 03/16/2021 03/16/21- GDM A2 with previous . Gina Vieyra, SUZANNE.CNM Previous Surgical History PAST SURGICAL HISTORY Procedure Laterality Date LAPAROSCOPY W/RMVL ADNEXAL STRUCTURES Bilateral 12/08/2021 salpingectomy for sterilization NONE Family History FAMILY HISTORY Problem Relation Age of Onset Stroke Father Patient Allergies ALLERGIES Allergen Reactions Bee Sting Hives Current Medications Current Outpatient Medications on File Prior to Visit Medication Sig sertraline (ZOLOFT) 100 mg tablet Take 1 tablet by mouth once daily. lisinopril (ZESTRIL, PRINIVIL) 5 mg tablet Take 1 tablet by mouth once daily. cholecalciferol, Vitamin D3, (VITAMIN D3) 1,250 mcg (50,000 unit) cap capsule Take 1 capsule by mouth one time a week. multivitamin (CLASSIC ) 28 mg iron- 800 mcg tab(s) Take 1 tablet by mouth once daily. No current facility-administered medications on file prior to visit. Social History Social History Tobacco Use Smoking status: Never Smokeless tobacco: Never Vaping Use Vaping Use: Never used Substance Use Topics Alcohol use: Not Currently Drug use: Never REVIEW OF SYSTEMS: as above Reviewed relevant PMHx, PSHx, Social Hx, current medications and allergies. Review of Symptoms REVIEW OF SYSTEMS See HPI. All other systems are negative. EXAM: BP 130/80 Pulse 64 Resp 16 Wt 128.8 kg (284 lb) LMP 06/15/2022 BMI 46.75 kg/m General Appearance: Well appearing, alert, in no acute distress, well-hydrated, well nourished.. Skin: Skin color, texture, turgor normal, no suspicious rashes or lesions. Head: Normocephalic, no masses, lesions, tenderness or abnormalities. Lungs: Lungs clear to auscultation. No wheezing, rhonchi, rales.. Heart: RRR without murmur, gallop, or rubs. No ectopy. Health Maintenance List HEPATITIS B(1 of 3 - 3-dose series) Never done COVID-19 VACCINE(3 - Booster for Yvette series) due on 05/10/2023 INFLUENZA(Season Ended) due on 02/09/2023 ANNUAL PCP TEAM CHRONIC DISEASE VISIT due on 08/10/2023 BP CONTROLLED (<130/80) due on 08/10/2023 PAP TESTING due on 03/16/2026 HPV TESTING due on 03/16/2026 DTAP,TDAP,TD(2 - Td or Tdap) due on 08/17/2031 DEPRESSION ASSESSMENT Completed HEPATITIS C SCREENING Completed HIV SCREENING Completed ASSESSMENT/PLAN: 1. Class 3 severe obesity with body mass index (BMI) of 45.0 to 49.9 in adult, unspecified obesity type, unspecified whether serious comorbidity present (HCC) - ICD9: 278.01, V85.42, ICD10: E66.01, Z68.42 (primary diagnosis) Weight decreasing Discussed new [place] guidelines for Adipex regimen -- pt agreeable and understands. Pt aware of needed 10% weight loss in the initial 3 months to continue on this medication. Pt aware of needing in office appointments every 3 months to monitor and assess. - Behavioral intervention, - Pharmacological intervention, - Eat well program, and - Continue current medications - PHENTERMINE 37.5 MG CAPSULE PDMP website checked and validated. All prescriptions have been APPROPRIATELY filled. No suspicious activity was identified. 09/11/2022 by Sandhya Doherty APRN.DEPARTMENT SECRETARY 2. Prediabetes - ICD9: 790.29, ICD10: R73.03 See above. - PHENTERMINE 37.5 MG CAPSULE 3. Vitamin D deficiency - ICD9: 268.9, ICD10: E55.9 Refilled. - CHOLECALCIFEROL (VITAMIN D3) 1,250 MCG (50,000 UNIT) CAPSULE RTO in 2 months, sooner if needed. Prescription instructions reviewed with patient as applicable. Potential red flag symptoms discussed with the patient. Reviewed appropriate action plan to take if red flag symptoms occur. Patient agreeable to treatment plan. Sandhya Aguilera APRN.CNP [address] [place] [address] documented in this encounter [facility] 08-09-2022 Miscellaneous Notes The following approved medication requests have been transmitted electronically. Requested Prescriptions Signed Prescriptions Disp Refills Phentermine HCl (ADIPEX-P) 37.5 mg capsule 30 capsule 0 Sig: Take 1 capsule by mouth once daily for 30 days. Sandhya Doherty APRN.CNP documented in this encounter [facility] 08-09-2022 Note HNO ID: [id number] Author: Sandhya Doherty APRN.CNP Service: ? Author Type: Nurse Practitioner Type: Progress Notes Filed: 08/09/2022 8:46 AM Note Text: Chief Complaint Patient presents with: Follow Up HPI Pazfam Wilder is a 37 year old female who presents here today for Above Complaints.. Amber is an established patient of Dr. Harry DO and myself. Concerns today... HTN--- She states compliant with current blood pressure medication(s): lisinopril 5 mg daily. She does not check BP at home. She denies chest pain, shortness of breath, palpitations, dizziness, leg edema, headaches, or vision changes. Last 14 Encounter BP Readings: Date: BP: 08/09/2022 120/70 06/29/2022 134/88 06/09/2022 120/80 05/10/2022 142/90 04/24/2022 146/90 12/13/2021 142/86 11/24/2021 116/82 10/31/2021 135/85 10/24/2021 122/80 10/17/2021 138/86 10/10/2021 126/76 10/06/2021 127/78 10/03/2021 116/64 09/29/2021 117/62 RADHA-- Zoloft 100 mg daily. Stable. Well controlled on this regimen. Needs refill. Weight management ---- Was on a good track losing slow and steady on her own. Sleep is improving which helps. Trying to get out and be more active but d/t winter months, this is getting very hard. By the time she gets home from work, it is already dark out. Having trouble with portion control. Interested in starting Adipex if able. Starting weight: 294 lbs today. No other concerns or complaints. Past medical history, appointments, medications, allergies reviewed. Previous Medical History PAST MEDICAL HISTORY Diagnosis Date Anxiety History of gestational diabetes in prior , currently 03/16/2021 03/16/21- GDM A2 with previous . Gina Vieyra APRN.ANDREW Previous Surgical History PAST SURGICAL HISTORY Procedure Laterality Date LAPAROSCOPY W/RMVL ADNEXAL STRUCTURES Bilateral 12/08/2021 salpingectomy for sterilization NONE Family History FAMILY HISTORY Problem Relation Age of Onset Stroke Father Patient Allergies ALLERGIES Allergen Reactions Bee Sting Hives Current Medications Current Outpatient Medications on File Prior to Visit Medication Sig lisinopril (ZESTRIL, PRINIVIL) 5 mg tablet TAKE 1 TABLET BY MOUTH EVERY DAY cholecalciferol, Vitamin D3, (VITAMIN D3) 1,250 mcg (50,000 unit) cap capsule Take 1 capsule by mouth one time a week. sertraline (ZOLOFT) 100 mg tablet Take 1 tablet by mouth once daily. labetalol (TRANDATE) 100 mg tablet Take 100 mg by mouth twice daily. (Patient not taking: Reported on 12/13/2021 ) multivitamin (CLASSIC ) 28 mg iron- 800 mcg tab(s) Take 1 tablet by mouth once daily. No current facility-administered medications on file prior to visit. Social History Social History Tobacco Use Smoking status: Never Smokeless tobacco: Never Vaping Use Vaping Use: Never used Substance Use Topics Alcohol use: Not Currently Drug use: Never REVIEW OF SYSTEMS: as above Reviewed relevant PMHx, PSHx, Social Hx, current medications and allergies. Review of Symptoms REVIEW OF SYSTEMS See HPI. EXAM: BP 120/70 (BP Site: Left Arm, BP Position: Sitting, BP Cuff Size: Large Adult) Pulse 86 Resp 14 Wt 133.4 kg (294 lb) LMP 06/15/2022 SpO2 97% BMI 48.40 kg/m? General Appearance: Well appearing, alert, in no acute distress, well-hydrated, well nourished.. Skin: Skin color, texture, turgor normal, no suspicious rashes or lesions. Head: Normocephalic, no masses, lesions, tenderness or abnormalities. Lungs: Lungs clear to auscultation. No wheezing, rhonchi, rales.. Heart: RRR without murmur, gallop, or rubs. No ectopy. Health Maintenance List HEPATITIS B(1 of 3 - 3-dose series) Never done BP CONTROLLED (<130/80) Never done DEPRESSION ASSESSMENT due on 06/11/2022 INFLUENZA(1) due on 12/08/2022 COVID-19 VACCINE(3 - Booster for Yvette series) due on 05/10/2023 ANNUAL PCP TEAM CHRONIC DISEASE VISIT due on 06/09/2023 PAP TESTING due on 03/16/2026 HPV TESTING due on 03/16/2026 DTAP,TDAP,TD(2 - Td or Tdap) due on 08/17/2031 HEPATITIS C SCREENING Completed HIV SCREENING Completed ASSESSMENT/PLAN: 1. Class 3 severe obesity with body mass index (BMI) of 45.0 to 49.9 in adult, unspecified obesity type, unspecified whether serious comorbidity present (HCC) - ICD9: 278.01, V85.42, ICD10: E66.01, Z68.42 (primary diagnosis) Weight increasing - Behavioral intervention, - Pharmacological intervention, - Eat well program, and - Continue current medications Start adipex regimen. Discussed side effects of medication. Understands protocol of 3 months on medication, 6 months off of medication. Increase exercise/activity to 30-45 minutes 3-4x per week. Discussed diet alternatives for healthy eating. - PHENTERMINE 37.5 MG CAPSULE PDMP website checked and validated. All prescriptions have been APPROPRIATELY filled. No suspicious activity was identified (more content not included)... [facility] 06-29-2022 Note HNO ID: [id number] Author: ESAU Bone Service: ? Author Type: Physician E Tailer Type: Progress Notes Filed: 06/29/2022 5:23 PM Note Text: This note was created using TSBter. Subjective Paz Wilder is a 37 year old female. HPI 37-year-old female with PMH of gestational diabetes, anxiety, recurrent thrush presents for sore throat. Patient states that she started getting a sore throat few days ago. She had a little bit of runny nose. She notes that she had white patches on the back of her throat. She does report a history of recurrent thrush. She was recently breast-feeding. She states that she had recurrent thrush on her nipples and in her mouth/throat. She was last treated in December. She has since stopped breast-feeding. Patient denies any rash anywhere else. She states that she just noticed white spots in the back of her throat and it feels similar to prior thrush. She denies any recent antibiotic use, recent steroid use or use of inhalers. She denies any fevers, cough. No vomiting or diarrhea. PAST MEDICAL HISTORY Diagnosis Date Anxiety History of gestational diabetes in prior , currently 03/16/2021 03/16/21- GDM A2 with previous . Gina Vieyra APRN.ANDIM PAST SURGICAL HISTORY Procedure Laterality Date LAPAROSCOPY W/RMVL ADNEXAL STRUCTURES Bilateral 12/08/2021 salpingectomy for sterilization NONE ALLERGIES Bee Sting MEDICATIONS lisinopril (ZESTRIL, PRINIVIL) 5 mg tablet TAKE 1 TABLET BY MOUTH EVERY DAY cholecalciferol, Vitamin D3, (VITAMIN D3) 1,250 mcg (50,000 unit) cap capsule Take 1 capsule by mouth one time a week. sertraline (ZOLOFT) 100 mg tablet Take 1 tablet by mouth once daily. nystatin (MYCOSTATIN) 100,000 unit/mL suspension Take 5 mL by mouth four times daily for 7 days. 1tsp swish in mouth for several minutes, then swallow (or expectorate) 4 times daily until gone. labetalol (TRANDATE) 100 mg tablet Take 100 mg by mouth twice daily. (Patient not taking: Reported on 12/13/2021 ) multivitamin (CLASSIC ) 28 mg iron- 800 mcg tab(s) Take 1 tablet by mouth once daily. FAMILY HISTORY Problem Relation Age of Onset Stroke Father Social History Tobacco Use Smoking status: Never Smokeless tobacco: Never Vaping Use Vaping Use: Never used Substance Use Topics Alcohol use: Not Currently Drug use: Never Review of Systems Constitutional: Negative for chills and fever. HENT: Positive for sore throat. Negative for congestion and ear pain. Respiratory: Negative for cough and shortness of breath. Cardiovascular: Negative for chest pain. Gastrointestinal: Negative for diarrhea and vomiting. Objective BP 134/88 Pulse 86 Temp 36.9 ?C (98.5 ?F) (Tympanic) Resp 18 Wt 131.8 kg (290 lb 9.6 oz) LMP 06/15/2022 SpO2 97% No BMI 47.84 kg/m? Physical Exam Vitals and nursing note reviewed. Constitutional: General: She is not in acute distress. Appearance: Normal appearance. She is not toxic-appearing. HENT: Right Ear: Tympanic membrane and ear canal normal. Left Ear: Tympanic membrane and ear canal normal. Nose: Nose normal. Mouth/Throat: Mouth: Mucous membranes are moist. Pharynx: Uvula midline. Oropharyngeal exudate and posterior oropharyngeal erythema present. Tonsils: No tonsillar exudate. 0 on the right. 0 on the left. Comments: Patient has erythema of the posterior oropharynx with white patchy exudates. Exudates present on the uvula. No tonsillar exudates or tonsillar swelling. Eyes: Conjunctiva/sclera: Conjunctivae normal. Cardiovascular: Rate and Rhythm: Normal rate and regular rhythm. Pulmonary: Effort: Pulmonary effort is normal. Breath sounds: Normal breath sounds. Neurological: Mental Status: She is alert. Assessment and Plan ASSESSMENT/PLAN: 1. Thrush - ICD9: 112.0, ICD10: B37.0 (primary diagnosis) -Patient states this is recurrent. She has had this in the past.. She was last treated in December. -Nystatin mouthwash. -Advised to follow-up with PCP this week. Discussed rechecking glucose, etc. due to recurrent thrush. 2. Throat pain - ICD9: 784.1, ICD10: R07.0 - STREP A MOLECULAR (POC)-negative -Throat appears consistent with thrush. This is recurrent. Nystatin mouthwash Diagnosis and treatment plan were discussed and questions were answered to the patient's satisfaction. Pt acknowledged understanding of concepts and follow up plan. Specific signs and symptoms that would indicate the need for higher level of care were discussed in detail warranting prompt ER evaluation. ESAU Bone [facility] 06-29-2022 History of Presen t illness Narrative This note was created using TransferGo. Subjective Paz Wilder is a 37 year old female. HPI 37-year-old female with PMH of gestational diabetes, anxiety, recurrent thrush presents for sore throat. Patient states that she started getting a sore throat few days ago. She had a little bit of runny nose. She notes that she had white patches on the back of her throat. She does report a history of recurrent thrush. She was recently breast-feeding. She states that she had recurrent thrush on her nipples and in her mouth/throat. She was last treated in December. She has since stopped breast-feeding. Patient denies any rash anywhere else. She states that she just noticed white spots in the back of her throat and it feels similar to prior thrush. She denies any recent antibiotic use, recent steroid use or use of inhalers. She denies any fevers, cough. No vomiting or diarrhea. PAST MEDICAL HISTORY Diagnosis Date Anxiety History of gestational diabetes in prior , currently 03/16/2021 03/16/21- GDM A2 with previous . Gina Vieyra APRN.CNM PAST SURGICAL HISTORY Procedure Laterality Date LAPAROSCOPY W/RMVL ADNEXAL STRUCTURES Bilateral 12/08/2021 salpingectomy for sterilization NONE ALLERGIES Bee Sting MEDICATIONS lisinopril (ZESTRIL, PRINIVIL) 5 mg tablet TAKE 1 TABLET BY MOUTH EVERY DAY cholecalciferol, Vitamin D3, (VITAMIN D3) 1,250 mcg (50,000 unit) cap capsule Take 1 capsule by mouth one time a week. sertraline (ZOLOFT) 100 mg tablet Take 1 tablet by mouth once daily. nystatin (MYCOSTATIN) 100,000 unit/mL suspension Take 5 mL by mouth four times daily for 7 days. 1tsp swish in mouth for several minutes, then swallow (or expectorate) 4 times daily until gone. labetalol (TRANDATE) 100 mg tablet Take 100 mg by mouth twice daily. (Patient not taking: Reported on 12/13/2021 ) multivitamin (CLASSIC ) 28 mg iron- 800 mcg tab(s) Take 1 tablet by mouth once daily. FAMILY HISTORY Problem Relation Age of Onset Stroke Father Social History Tobacco Use Smoking status: Never Smokeless tobacco: Never Vaping Use Vaping Use: Never used Substance Use Topics Alcohol use: Not Currently Drug use: Never Review of Systems Constitutional: Negative for chills and fever. HENT: Positive for sore throat. Negative for congestion and ear pain. Respiratory: Negative for cough and shortness of breath. Cardiovascular: Negative for chest pain. Gastrointestinal: Negative for diarrhea and vomiting. Objective BP 134/88 Pulse 86 Temp 36.9 C (98.5 F) (Tympanic) Resp 18 Wt 131.8 kg (290 lb 9.6 oz) LMP 06/15/2022 SpO2 97% No BMI 47.84 kg/m Physical Exam Vitals and nursing note reviewed. Constitutional: General: She is not in acute distress. Appearance: Normal appearance. She is not toxic-appearing. HENT: Right Ear: Tympanic membrane and ear canal normal. Left Ear: Tympanic membrane and ear canal normal. Nose: Nose normal. Mouth/Throat: Mouth: Mucous membranes are moist. Pharynx: Uvula midline. Oropharyngeal exudate and posterior oropharyngeal erythema present. Tonsils: No tonsillar exudate. 0 on the right. 0 on the left. Comments: Patient has erythema of the posterior oropharynx with white patchy exudates. Exudates present on the uvula. No tonsillar exudates or tonsillar swelling. Eyes: Conjunctiva/sclera: Conjunctivae normal. Cardiovascular: Rate and Rhythm: Normal rate and regular rhythm. Pulmonary: Effort: Pulmonary effort is normal. Breath sounds: Normal breath sounds. Neurological: Mental Status: She is alert. Assessment and Plan ASSESSMENT/PLAN: 1. Thrush - ICD9: 112.0, ICD10: B37.0 (primary diagnosis) -Patient states this is recurrent. She has had this in the past.. She was last treated in December. -Nystatin mouthwash. -Advised to follow-up with PCP this week. Discussed rechecking glucose, etc. due to recurrent thrush. 2. Throat pain - ICD9: 784.1, ICD10: R07.0 - STREP A MOLECULAR (POC)-negative -Throat appears consistent with thrush. This is recurrent. Nystatin mouthwash Diagnosis and treatment plan were discussed and questions were answered to the patient's satisfaction. Pt acknowledged understanding of concepts and follow up plan. Specific signs and symptoms that would indicate the need for higher level of care were discussed in detail warranting prompt ER evaluation. ESAU Bone documented in this encounter [facility] 06-09-2022 History of Presen t illness Narrative Chief Complaint Patient presents with: one month f/up HPI Paz Wilder is a 37 year old female who presents here today for Above Complaints.. Amber is an established patient of Dr. Harry DO and myself. Per last visit on 05/10 - 1 month ago: 1. Wellness examination - ICD9: V70.0, ICD10: Z00.00 (primary diagnosis) - Counseled on healthy diet and regular exercise - Calcium intake with supplements or by diet of 1000 mg/day for under 50, 8484-6677 mg/day for 50+ - Discussed need and benefit for weight loss. BMI 47.92 kg/(m^2) - Depression screening tool completed and reviewed with patient. Based on score and interview, patient is not at risk for depression and recommended no further intervention at this time. - Follow up for annual exam in one year - COMP METABOLIC PANEL - CBC - HGB A1C - LIPID PANEL BASIC - TSH BLD - VITAMIN D 25 HYDROXY 2. Sleep apnea, unspecified type - ICD9: 780.57, ICD10: G47.30 Restart using CPAP. May improve weight loss measures. 3. RADHA (generalized anxiety disorder) - ICD9: 300.02, ICD10: F41.1 Increase zoloft to 100 mg daily. Follow-up in 1 month to reassess. - SERTRALINE 100 MG TABLET - DEPRESSION SCREENING/ASSESSMENT 4. Hypertension, unspecified type - ICD9: 401.9, ICD10: I10 - newly diagnosed. Hx of short-term HTN treated with labetalol. - Begin low dose lisinopril (Zestril/Prinivil) - Encouraged dietary sodium restriction/DASH diet - Recommended regular aerobic exercise. - Recommend home blood pressure monitoring, to bring results in on next visit - Discussed need and benefit for weight loss. - Follow up in 1 month for BP recheck. - Goal of BP <130/80 - Recommend home or pharmacy blood pressure monitoring - Recommended no refined sugar, low refined starch, healthy oil intake (olive oil), healthy protein (fish) along the lines of the Mediterranean diet. - LISINOPRIL 5 MG TABLET 5. Tinnitus of left ear - ICD9: 388.30, ICD10: H93.12 - CONSULT TO ENT 6. Class 3 severe obesity with body mass index (BMI) of 45.0 to 49.9 in adult, unspecified obesity type, unspecified whether serious comorbidity present (HCC) - ICD9: 278.01, V85.42, ICD10: E66.01, Z68.42 Weight increasing - Behavioral intervention, - Eat well program, and - Continue current medications - Increase exercise to 30 minutes 3-4 x per week of purposeful exertion. - Continue to track food with serjio - discussed weight loss medication options such as Adipex if no improvement on own in 3-6 months. Currently today.. Anxiety -- Increased Zoloft at last visit. Has noticed the last week that she is much more relaxed and less anxious. Even with the holidays, she can already see a difference. Would like to stay on this dosage. HTN -- Started on low dose lisinopril at last visit. She states compliant with current blood pressure medication(s). She does check BP at home. Average home readings: 120/80s every time. Was taking daily for the first 2 weeks and when BP was so consistent she stopped taking it so often. She denies chest pain, shortness of breath, palpitations, dizziness, leg edema, headaches, or vision changes. Last 14 Encounter BP Readings: Date: BP: 06/09/2022 120/80 05/10/2022 142/90 04/24/2022 146/90 12/13/2021 142/86 11/24/2021 116/82 10/31/2021 135/85 10/24/2021 122/80 10/17/2021 138/86 10/10/2021 126/76 10/06/2021 127/78 10/03/2021 116/64 09/29/2021 117/62 09/26/2021 138/78 09/21/2021 120/78 Weight loss --- Down 4 lbs from last visit. This being over holiday/Brissa season as well. Discussed weight loss medication at last visit as well. Diet changes and increase in exercise x 1 month now. Sleep -- Started wearing CPAP again. Tolerating well. No changes so far in sleep/rest state. Past medical history, appointments, medications, allergies reviewed. Previous Medical History PAST MEDICAL HISTORY Diagnosis Date Anxiety History of gestational diabetes in prior , currently 03/16/2021 03/16/21- GDM A2 with previous . Gina Vieyra APRN.ANDREW Previous Surgical History PAST SURGICAL HISTORY Procedure Laterality Date LAPAROSCOPY W/RMVL ADNEXAL STRUCTURES Bilateral 12/08/2021 salpingectomy for sterilization NONE Family History FAMILY HISTORY Problem Relation Age of Onset Stroke Father Patient Allergies ALLERGIES Allergen Reactions Bee Sting Hives Current Medications Current Outpatient Medications on File Prior to Visit Medication Sig lisinopril (ZESTRIL, PRINIVIL) 5 mg tablet TAKE 1 TABLET BY MOUTH EVERY DAY cholecalciferol, Vitamin D3, (VITAMIN D3) 1,250 mcg (50,000 unit) cap capsule Take 1 capsule by mouth one time a week. sertraline (ZOLOFT) 100 mg tablet Take 1 tablet by mouth once daily. labetalol (TRANDATE) 100 mg tablet Take 100 mg by mouth twice daily. (Patient not taking: Reported on 12/13/2021 ) multivitamin (CLASSIC ) 28 mg iron- 800 mcg tab(s) Take 1 tablet by mouth once daily. No current facility-administered medications on file prior to visit. Social History Social History Tobacco Use Smoking status: Never Smokeless tobacco: Never Vaping Use Vaping Use: Never used Substance Use Topics Alcohol use: Not Currently Drug use: Never REVIEW OF SYSTEMS: as above Reviewed relevant PMHx, PSHx, Social Hx, current medications and allergies. Review of Symptoms REVIEW OF SYSTEMS See HPI. All other systems are negative. EXAM: BP 120/80 (BP Site: Left Arm, BP Position: Sitting, BP Cuff Size: Large Adult) Pulse 68 Resp 14 Wt 130.2 kg (287 lb) LMP 02/05/2021 BMI 47.24 kg/m General Appearance: Well appearing, alert, in no acute distress, well-hydrated, well nourished.. Skin: Skin color, texture, turgor normal, no suspicious rashes or lesions. Head: Normocephalic, no masses, lesions, tenderness or abnormalities. Lungs: Lungs clear to auscultation. No wheezing, rhonchi, rales.. Heart: RRR without murmur, gallop, or rubs. No ectopy. Health Maintenance List HEPATITIS B(1 of 3 - 3-dose series) Never done INFLUENZA(1) due on 12/08/2022 COVID-19 VACCINE(3 - Booster for Yvette series) due on 05/10/2023 PAP TESTING due on 03/16/2026 HPV TESTING due on 03/16/2026 DTAP,TDAP,TD(2 - Td or Tdap) due on 08/17/2031 DEPRESSION ASSESSMENT Completed HEPATITIS C SCREENING Completed HIV SCREENING Completed ASSESSMENT/PLAN: 1. Hypertension, unspecified type - ICD9: 401.9, ICD10: I10 (primary diagnosis) - good control Improved control. Parameters of monitoring explained to patient. - Continue current medication(s) - Encouraged dietary sodium restriction/DASH diet - Recommended regular aerobic exercise. - Recommend home blood pressure monitoring, to bring results in on next visit - Discussed need and benefit for weight loss. - Goal of BP <130/80 - Recommend home or pharmacy blood pressure monitoring - Recommended no refined sugar, low refined starch, healthy oil intake (olive oil), healthy protein (fish) along the lines of the Mediterranean diet. 2. Sleep apnea, unspecified type - ICD9: 780.57, ICD10: G47.30 Stable. Continue using CPAP. 3. Class 3 severe obesity with body mass index (BMI) of 45.0 to 49.9 in adult, unspecified obesity type, unspecified whether serious comorbidity present (HCC) - ICD9: 278.01, V85.42, ICD10: E66.01, Z68.42 Weight decreasing - Behavioral intervention and - Continue current medications RTO in 3 months to reassess weight management and possible start of Adipex or DM injectable d/t hgA1c within pre-diabetes range. Continue diet changes and increasing exercise. 4. RADHA (generalized anxiety disorder) - ICD9: 300.02, ICD10: F41.1 Stable. Well controlled. Continue zoloft dosage RTO in 3 months, sooner if needed. Prescription instructions reviewed with patient as applicable. Potential red flag symptoms discussed with the patient. Reviewed appropriate action plan to take if red flag symptoms occur. Patient agreeable to treatment plan. Sandhya Aguilera APRN.ABHISHEK [address] [place] [address] documented in [facility] encounter [facility] 06-02-2022 Miscellaneous Notes Patient phones requesting refills as follows: Requested Prescriptions Pending Prescriptions Disp Refills lisinopril (ZESTRIL, PRINIVIL) 5 mg tablet [Pharmacy Med Name: LISINOPRIL 5 MG TABLET] 30 tablet 2 Sig: TAKE 1 TABLET BY MOUTH EVERY DAY VELIA-05/10/22 Labs-05/26/22 NOV-06/09/22 med filled 05/10/22 Please review and advise. Giovana Han LPN documented in this encounter [facility] 05-31-2022 Miscellaneous Notes Spoke with Dr. Salinas he will send pt to er. I agree pt needs MRI if pupils are assymetrical, especially since this is a new finding compared to recent visit. She needs to go to ER for urgent assessment versus outpatient MRI. Sandhya Aguilera APRN.ABHISHEK Sent to Devyn Be, but she is not pcp. Re-sent to Sandhya, since patient had appt with Sandhya. Dr. Salinas, asking Devyn Be, to call him. Reports patient woke up with headache, and asymetric pupils (left pupil is dilated). Patient called ER who advised her to see eye doctor. Patient is in Dr. Salinas's office now, and he believes she needs an MRI. Reports he does not have hospital privledges and asking if [facility] [employer] can order an MRI of head/neck to r/o aneurysm, for patient. Please phone Dr. Salinas with reply on his cell: [phone] documented in this encounter [facility] 05-10-2022 History of Presen t illness Narrative Chief Complaint Patient presents with: Establish Care HPI Pazrhina Wilder is a 37 year old female who presents here today for Above Complaints. Amber is here today to establish care with our team. Amber is a new patient to me today. Concerns today.. Tinnitis -- In L ear x 3 months. Denies any pain or associated congestion, flu-like symptoms. Hx of vertigo but no vertigo or dizziness with this episode. HTN -- Was put on labetalol post- due to HTN. Slowly weaned off of this medication as BP improved. Has noticed at urgenct care visits or other doctors appointment that BP is always slightly elevated 140s/90s. Was told to find PCP to address HTN -- reason she made appointment. Was on labetalol 100 mg BID. Has not checked BP since being off of this medication but does have cuff at home. Not anymore. Had baby in October. She denies chest pain, shortness of breath, palpitations, dizziness, leg edema, headaches, or vision changes. Last 14 Encounter BP Readings: Date: BP: 05/10/2022 142/90 04/24/2022 146/90 12/13/2021 142/86 11/24/2021 116/82 10/31/2021 135/85 10/24/2021 122/80 10/17/2021 138/86 10/10/2021 126/76 10/06/2021 127/78 10/03/2021 116/64 09/29/2021 117/62 09/26/2021 138/78 09/21/2021 120/78 09/09/2021 132/74 Anxiety -- Zoloft 50 mg daily. Been on this regimen for awhile. Anxiety has been getting worse. Feels overwhelmed frequently day to day. Denies any panic/anxiety attack episodes. No depression. Denies SI/HI. Zoloft works well and likes this regimen, asking if she can increase dosage. Sleep apnea--- Has a CPAP. Not using as much due to nursing frequently in the night. CPAP is going back on since she is done . Poor sleep recently but unsure if due to stopped using CPAP or d/t . Diet-- eats relatively healthy. Eats well balance meals. Does track what she eats. Exercise-- no routine exercise. No energy. Too busy. Will walk/hike occasionally. Would love to lose weight. Been overweight her whole life. No sudden new onset. HM -- Never smoker Declined flu shot. UTD on PAP and HPV testing. No other concerns or complaints. Past medical history, appointments, medications, allergies reviewed. Previous Medical History PAST MEDICAL HISTORY Diagnosis Date Anxiety History of gestational diabetes in prior , currently 03/16/2021 03/16/21- GDM A2 with previous . Gina Vieyra APRN.ANDREW Previous Surgical History PAST SURGICAL HISTORY Procedure Laterality Date LAPAROSCOPY W/RMVL ADNEXAL STRUCTURES Bilateral 12/08/2021 salpingectomy for sterilization NONE Family History FAMILY HISTORY Problem Relation Age of Onset Stroke Father Patient Allergies ALLERGIES Allergen Reactions Bee Sting Hives Current Medications Current Outpatient Medications on File Prior to Visit Medication Sig nystatin (MYCOSTATIN) 100,000 unit/mL suspension Take 5 mL by mouth four times daily. 1tsp swish in mouth for several minutes, then swallow (or expectorate) 4 times daily until gone. (Patient not taking: Reported on 04/24/2022) nystatin (MYCOSTATIN) cream Apply to affected area twice daily. (Patient not taking: Reported on 04/24/2022) labetalol (TRANDATE) 100 mg tablet Take 100 mg by mouth twice daily. (Patient not taking: Reported on 12/13/2021 ) multivitamin (CLASSIC ) 28 mg iron- 800 mcg tab(s) Take 1 tablet by mouth once daily. sertraline (ZOLOFT) 50 mg tablet Take 50 mg by mouth once daily. No current facility-administered medications on file prior to visit. Social History Social History Tobacco Use Smoking status: Never Smokeless tobacco: Never Vaping Use Vaping Use: Never used Substance Use Topics Alcohol use: Not Currently Drug use: Never REVIEW OF SYSTEMS: as above Reviewed relevant PMHx, PSHx, Social Hx, current medications and allergies. Review of Symptoms REVIEW OF SYSTEMS See HPI. All other systems are negative. EXAM: BP 142/90 (BP Site: Left Arm, BP Position: Sitting, BP Cuff Size: Large Adult) Pulse 60 Resp 16 Ht 166 cm (5' 5.35 ) Wt 132.1 kg (291 lb 1.9 oz) LMP 02/05/2021 BMI 47.92 kg/m General Appearance: Well appearing, alert, in no acute distress, well-hydrated, well nourished.. Skin: Skin color, texture, turgor normal, no suspicious rashes or lesions. Head: Normocephalic, no masses, lesions, tenderness or abnormalities. Ears: External ears normal, canals clear. Nose/Sinuses: Nares normal, septum midline, mucosa normal, no drainage or sinus tenderness. Oropharynx: Lips, mucosa, and tongue normal, teeth and gums normal, oropharynx normal. Neck: Supple, no adenopathy; thyroid symmetric, normal size, no bruits. Back:no pain to palpation of vertebrae, good flexion and extension, good range of motion, no muscle tenderness, reflexes are 2+ and symmetric, motor and sensory appear to be normal, negative SLR test, no evidence of scoliosis Lungs: Lungs clear to auscultation. No wheezing, rhonchi, rales.. Heart: RRR without murmur, gallop, or rubs. No ectopy. Abdomen: Normal abdominal exam, Abdomen soft, non-tender. Bowel sounds normal. No masses, organomegaly. Extremities: No deformities, edema, skin discoloration, clubbing or cyanosis. Good capillary refill. . Musculoskeletal: No joint swelling, deformity, or tenderness. Peripheral Pulses: Normal. Neurologic: Gait normal. Reflexes normal and symmetric. Sensation grossly intact.. Lymph Nodes: No cervical lymphadenopathy, No supraclavicular lymphadenopathy, No axillary lymphadenopathy., and No inguinal lymphadenopathy.. Health Maintenance List HEPATITIS B(1 of 3 - 3-dose series) Never done DEPRESSION ASSESSMENT Never done COVID-19 VACCINE(3 - Booster for Yvette series) due on 08/25/2021 INFLUENZA(1) due on 02/09/2022 PAP TESTING due on 03/16/2026 HPV TESTING due on 03/16/2026 DTAP,TDAP,TD(2 - Td or Tdap) due on 08/17/2031 HEPATITIS C SCREENING Completed HIV SCREENING Completed ASSESSMENT/PLAN: 1. Wellness examination - ICD9: V70.0, ICD10: Z00.00 (primary diagnosis) - Counseled on healthy diet and regular exercise - Calcium intake with supplements or by diet of 1000 mg/day for under 50, 3655-4602 mg/day for 50+ - Discussed need and benefit for weight loss. BMI 47.92 kg/(m^2) - Depression screening tool completed and reviewed with patient. Based on score and interview, patient is not at risk for depression and recommended no further intervention at this time. - Follow up for annual exam in one year - COMP METABOLIC PANEL - CBC - HGB A1C - LIPID PANEL BASIC - TSH BLD - VITAMIN D 25 HYDROXY 2. Sleep apnea, unspecified type - ICD9: 780.57, ICD10: G47.30 Restart using CPAP. May improve weight loss measures. 3. RADHA (generalized anxiety disorder) - ICD9: 300.02, ICD10: F41.1 Increase zoloft to 100 mg daily. Follow-up in 1 month to reassess. - SERTRALINE 100 MG TABLET - DEPRESSION SCREENING/ASSESSMENT 4. Hypertension, unspecified type - ICD9: 401.9, ICD10: I10 - newly diagnosed. Hx of short-term HTN treated with labetalol. - Begin low dose lisinopril (Zestril/Prinivil) - Encouraged dietary sodium restriction/DASH diet - Recommended regular aerobic exercise. - Recommend home blood pressure monitoring, to bring results in on next visit - Discussed need and benefit for weight loss. - Follow up in 1 month for BP recheck. - Goal of BP <130/80 - Recommend home or pharmacy blood pressure monitoring - Recommended no refined sugar, low refined starch, healthy oil intake (olive oil), healthy protein (fish) along the lines of the Mediterranean diet. - LISINOPRIL 5 MG TABLET 5. Tinnitus of left ear - ICD9: 388.30, ICD10: H93.12 - CONSULT TO ENT 6. Class 3 severe obesity with body mass index (BMI) of 45.0 to 49.9 in adult, unspecified obesity type, unspecified whether serious comorbidity present (HCC) - ICD9: 278.01, V85.42, ICD10: E66.01, Z68.42 Weight increasing - Behavioral intervention, - Eat well program, and - Continue current medications - Increase exercise to 30 minutes 3-4 x per week of purposeful exertion. - Continue to track food with serjio - discussed weight loss medication options such as Adipex if no improvement on own in 3-6 months. RTO in 1 months, sooner if needed. Prescription instructions reviewed with patient as applicable. Potential red flag symptoms discussed with the patient. Reviewed appropriate action plan to take if red flag symptoms occur. Patient agreeable to treatment plan. Sandhya Aguilera APRN.CNP [address] [place] [address] documented in this encounter [facility] 04-24-2022 Instructions Wes Jmi APRN.CNP - 04/24/2022 4:18 PM EST Images from the original note were not included. Adult Sinusitis Patient Education What is Sinusitis? Sinusitis [irjd-rry-pbln-tis] is inflammation of the sinuses or swelling of the lining of the sinus cavity or nose. During an infection the sinuses become blocked with fluid causing swelling of the lining of the sinuses. Symptoms: (viral and bacterial infections) Stuffy nose Runny nose Postnasal drip Fever Toothache Headache Tiredness Cough Sore throat Face and head pressure and or pain Common causes: 98% of sinus infections are viral caused by viruses. Risk Factors of Sinusitis Include: Allergies, air pollution, indoor humidity and outdoor temperature changes, andstructural changes in the nose may contribute to sinus pain, pressure and congestion. When to get help? Temperature greater than 100.4 F Symptoms lasting more than 10 days or worsening symptoms greater than 7-10 days. If you do not improve or worsen after a course of antibiotics, you should be re-examined. Diagnosis and Treatment: Your healthcare provider will ask a number of questions about your symptoms and how long they have occurred. If symptoms of sinusitis persist greater than 10 days, it is possible you have a bacterial sinus infection and an antibiotic is prescribed. If it is viral, antibiotics will not help. You may be instructed to take [id number]-[id number] medications for symptoms. including fever reducers acetaminophen or ibuprofen, nasal saline spray, cough and cold preparations and decongestants as prescribed by the physician, nurse practitioner or physician medical practice assistant. Self-Care and Prevention: Rest Fluids for hydration Good hand washing Humidifier Avoid smoking and exposure to second hand smoke Avoid sick contacts documented in this encounter [facility] 04-24-[facility]22 History of Presen t illness Narrative Subjective HPI Nontoxic-appearing female presents urgent care chief plaint possible sinus infection. Duration of symptoms cough nasal congestion for 3 weeks left ear pain for 1 day. States sinus pressure is worsening. Cough is improving. States illness did get throughout that helpful. Has been using OTC medications this is helped some. States recently sinus drainage has turned yellow. Presents today for evaluation. Denies any fever body aches chills productive cough chest pain shortness of breath pleuritic pain hemoptysis nausea vomiting abdominal pain change in bowel or bladder habits. Past medical history prescription medication use and allergies reviewed. Denies chance of . Is breast-feeding 6-month-old. .Patient presents with: Cough: Congestion, ST x3 weeks L ear pain x1 week PAST MEDICAL HISTORY Diagnosis Date Anxiety History of gestational diabetes in prior , currently 03/16/2021 03/16/21- GDM A2 with previous . Gina Vieyra APRN.ANDIM PAST SURGICAL HISTORY Procedure Laterality Date LAPAROSCOPY W/RMVL ADNEXAL STRUCTURES Bilateral 12/08/2021 salpingectomy for sterilization NONE ALLERGIES Bee Sting MEDICATIONS sertraline (ZOLOFT) 50 mg tablet Take 50 mg by mouth once daily. nystatin (MYCOSTATIN) 100,000 unit/mL suspension Take 5 mL by mouth four times daily. 1tsp swish in mouth for several minutes, then swallow (or expectorate) 4 times daily until gone. (Patient not taking: Reported on 04/24/2022) nystatin (MYCOSTATIN) cream Apply to affected area twice daily. (Patient not taking: Reported on 04/24/2022) labetalol (TRANDATE) 100 mg tablet Take 100 mg by mouth twice daily. (Patient not taking: Reported on 12/13/2021 ) multivitamin (CLASSIC ) 28 mg iron- 800 mcg tab(s) Take 1 tablet by mouth once daily. FAMILY HISTORY Problem Relation Age of Onset Stroke Father Social History Tobacco Use Smoking status: Never Smokeless tobacco: Never Vaping Use Vaping Use: Never used Substance Use Topics Alcohol use: Not Currently Drug use: Never BP 146/90 Pulse 103 Temp 36.6 C (97.9 F) Resp 20 Wt 131.5 kg (289 lb 12.8 oz) LMP 02/05/2021 SpO2 98% BMI 48.23 kg/m Hr 86 Review of Systems Constitutional: Negative for chills, fever and malaise/fatigue. HENT: Positive for congestion, ear pain, sinus pain and sore throat. Negative for ear discharge. Eyes: Negative for blurred vision, pain, discharge and redness. Respiratory: Positive for cough. Negative for hemoptysis, sputum production, shortness of breath, wheezing and stridor. Cardiovascular: Negative for chest pain. Gastrointestinal: Negative for abdominal pain, diarrhea, nausea and vomiting. Musculoskeletal: Negative for myalgias. Skin: Negative for itching and rash. Neurological: Negative for dizziness and headaches. Objective Physical Exam Constitutional: General: She is not in acute distress. Appearance: She is not diaphoretic. HENT: Head: Normocephalic. Right Ear: Tympanic membrane, ear canal and external ear normal. No mastoid tenderness. Left Ear: Tympanic membrane, ear canal and external ear normal. No mastoid tenderness. Ears: Comments: Clear fluid noted behind bilateral TMs. Left greater than right. Mouth/Throat: Mouth: Mucous membranes are moist. Pharynx: Oropharynx is clear. Uvula midline. No pharyngeal swelling, oropharyngeal exudate, posterior oropharyngeal erythema or uvula swelling. Eyes: Conjunctiva/sclera: Conjunctivae normal. Pupils: Pupils are equal, round, and reactive to light. Cardiovascular: Rate and Rhythm: Normal rate and regular rhythm. Heart sounds: Normal heart sounds. Pulmonary: Effort: Pulmonary effort is normal. No tachypnea, accessory muscle usage or respiratory distress. Breath sounds: Normal breath sounds. No stridor. No wheezing, rhonchi or rales. Abdominal: Palpations: Abdomen is soft. Tenderness: There is no abdominal tenderness. Musculoskeletal: Cervical back: Normal range of motion and neck supple. No rigidity or tenderness. Lymphadenopathy: Cervical: No cervical adenopathy. Skin: General: Skin is warm and dry. Neurological: Mental Status: She is alert and oriented to person, place, and time. ASSESSMENT/PLAN: 1. Bacterial sinusitis - ICD9: 473.9, 041.9, ICD10: J32.9, B96.89 Patient diagnosed with bacterial sinusitis. Will be placed on Augmentin. Supportive therapies discussed. Risk of antibiotic use and breast-feeding discussed. Patient was educated on supportive therapies. Patient will follow up with primary care provider as needed. Patient was instructed to immediately proceed to emergency room for any new, worsening, or symptoms lasting longer than anticipated. The patient's clinical presentation is otherwise unremarkable at this time. Based on exam and clinical finding, the patient is stable for discharge. Plan of care was discussed with patient. Patient verbalizes understanding and agrees to plan of care. This note was generated using [employer] software. It may contain errors in wording, punctuation, or spelling. Wes Jim APRN.ABHISHEK documented in this encounter [facility] 12-21-2021 Miscellaneous Notes Patient had lap b/l salpingectomy on 12/08 at [facility]. Randee Arias RN documented in this encounter [facility] 12-13-2021 Instructions Nneka Sheikh APRN.ABHISHEK - 12/13/2021 4:25 PM EDT DEFINITION: White, irregularly shaped patches that coat the inside of the mouth and sometimes the tongue, adhere to the mouth, and cannot be washed away or wiped off easily like milk. (If the only symptom is a uniformly white tongue, it's due to a milk diet, not thrush.) Thrush causes mild discomfort. Bottle-fed or breast-fed child CAUSE: Thrush is caused by a yeast (Tania) that grows rapidly on the lining of the mouth in areas abraded by prolonged sucking (as when a baby sleeps with a bottle or pacifier). A large pacifier or nipple can also injure the lining of the mouth. Thrush may also occur when your child has recently been taking a broad-spectrum antibiotic. Thrush is not contagious since it does not invade normal tissue. HOME CARE: Nystatin Oral Medicine. The drug for clearing this up is nystatin oral suspension. It requires a prescription. Give 1 ml of nystatin four times daily. Place it in the front of the mouth on each side (it doesn't do any good once it's swallowed). If the thrush isn't responding, rub the nystatin directly on the affected areas with a cotton swab or with gauze wrapped around your finger. Apply it after meals, or at least don't feed your baby anything for 30 minutes after application. Do this for at least 7 days or until all the thrush has been gone for 3 days. If you are , apply nystatin to any irritated areas on your nipples. Decrease sucking time to 20 minutes per feeding. Prolonged sucking (as when a baby sleeps with a bottle or pacifier) can abrade the lining of the mouth and make it more prone to yeast infection. If sucking on a nipple is painful for your child, temporarily use a cup. If the thrush recurs and your child is bottle-fed, switch to a nipple with a different shape and made from silicone. Restrict pacifier use to bedtime. Eliminate the pacifier temporarily except when it's really needed for going to sleep. If your is using an orthodontic-type pacifier, switch to a smaller, regular one. Soak all nipples in water at 130*F (55*C), the temperature of most hot tap water, for 15 minutes. Diaper rash associated with thrush. If your child has an associated diaper rash, assume it is due to yeast. Request nystatin cream and apply it four times daily. CALL OUR OFFICE, During regular hours if: Your child refuses to drink. The thrush gets worse on treatment. The thrush lasts beyond 10 days. You have other concerns or questions. Instructions for Pediatric Patients, 2nd edition, 1998 by [employer] Written by Neftali Triplett MD, trim die maker and author of Your Child's Health, [employer], a book for parents. documented in this encounter [facility] 12-13-2021 History of Presen t illness Narrative This note was created using [employer]. Subjective Paz Wilder is a 36 year old female. 36 year old female with PMH sleep apnea and anxiety presents with complaints of possible thrush. Acute onset 4 days ago +sore throat +painful nipples with feeding (citing 7 month old) States sharp shooting pain with feeding Endorses history of same in past, never really has any redness While nursing. States that Nystatin helped. Denies fever or chills. Denies skin rash or lesions Denies using homeopathic or OTC medications STE[employer]. The history is provided by the patient. No hourly sign language interpreter was used. Illness The current episode started 3 to 5 days ago. The onset was sudden. The problem occurs continuously. The problem has been gradually worsening. The problem is moderate. Nothing relieves the symptoms. Nothing aggravates the symptoms. Associated symptoms include sore throat. Pertinent negatives include no orthopnea, no fever, no decreased vision, no double vision, no eye itching, no photophobia, no abdominal pain, no constipation, no diarrhea, no nausea, no vomiting, no congestion, no ear discharge, no ear pain, no headaches, no hearing loss, no mouth sores, no rhinorrhea, no stridor, no swollen glands, no neck pain, no cough, no URI, no wheezing, no rash, no eye discharge, no eye pain and no eye redness. Urine output has been normal. The last void occurred less than 6 hours ago. There were no sick contacts. She has received no recent medical care. PAST MEDICAL HISTORY Diagnosis Date Anxiety History of gestational diabetes in prior , currently 03/16/2021 03/16/21- GDM A2 with previous . Gina Vieyra APRN.CNM PAST SURGICAL HISTORY Procedure Laterality Date LAPAROSCOPY W/RMVL ADNEXAL STRUCTURES Bilateral 12/08/2021 salpingectomy for sterilization NONE ALLERGIES Bee Sting MEDICATIONS multivitamin (CLASSIC ) 28 mg iron- 800 mcg tab(s) Take 1 tablet by mouth once daily. sertraline (ZOLOFT) 50 mg tablet Take 50 mg by mouth once daily. nystatin (MYCOSTATIN) 100,000 unit/mL suspension Take 5 mL by mouth four times daily. 1tsp swish in mouth for several minutes, then swallow (or expectorate) 4 times daily until gone. nystatin (MYCOSTATIN) cream Apply to affected area twice daily. labetalol (TRANDATE) 100 mg tablet Take 100 mg by mouth twice daily. FAMILY HISTORY Problem Relation Age of Onset Stroke Father Social History Tobacco Use Smoking status: Never Smoker Smokeless tobacco: Never Used Vaping Use Vaping Use: Never used Substance Use Topics Alcohol use: Not Currently Drug use: Never Review of Systems Constitutional: Negative for activity change, appetite change, chills and fever. HENT: Positive for sore throat. Negative for congestion, ear discharge, ear pain, hearing loss, mouth sores and rhinorrhea. Eyes: Negative for double vision, photophobia, pain, discharge, redness and itching. Respiratory: Negative for cough, wheezing and stridor. Cardiovascular: Negative for orthopnea. Gastrointestinal: Negative for abdominal pain, constipation, diarrhea, nausea and vomiting. Musculoskeletal: Negative for back pain and neck pain. Skin: Negative for rash. +nipple pain Allergic/Immunologic: Positive for environmental allergies. Negative for food allergies and immunocompromised state. Neurological: Negative for headaches. Hematological: Negative for adenopathy. Does not bruise/bleed easily. Psychiatric/Behavioral: Negative for agitation and behavioral problems. Objective BP 142/86 Pulse 84 Temp 36.3 C (97.3 F) (Tympanic) Resp 18 Wt 128.7 kg (283 lb 12.8 oz) LMP 02/05/2021 SpO2 98% BMI 47.23 kg/m Physical Exam Vitals and nursing note reviewed. Exam conducted with a professor of genetics present. Constitutional: General: She is not in acute distress. Appearance: Normal appearance. She is normal weight. She is not ill-appearing, toxic-appearing or diaphoretic. HENT: Head: Normocephalic and atraumatic. Right Ear: Ear canal and external ear normal. Left Ear: Ear canal and external ear normal. Nose: Nose normal. No congestion or rhinorrhea. Mouth/Throat: Mouth: Mucous membranes are moist. Pharynx: Posterior oropharyngeal erythema (mild posterior erythema noted) present. No oropharyngeal exudate. Eyes: General: Right eye: No discharge. Left eye: No discharge. Extraocular Movements: Extraocular movements intact. Conjunctiva/sclera: Conjunctivae normal. Pupils: Pupils are equal, round, and reactive to light. Cardiovascular: Rate and Rhythm: Normal rate and regular rhythm. Pulses: Normal pulses. Heart sounds: Normal heart sounds. No murmur heard. No friction rub. Pulmonary: Effort: Pulmonary effort is normal. No respiratory distress. Breath sounds: Normal breath sounds. No stridor. No wheezing, rhonchi or rales. Chest: Chest wall: Tenderness (bilateral nipples with TTP. No ertyhema. No rash. ) present. Abdominal: General: Abdomen is flat. There is no distension. Palpations: Abdomen is soft. There is no mass. Tenderness: There is no abdominal tenderness. There is no right CVA tenderness, left CVA tenderness, guarding or rebound. Hernia: No hernia is present. Musculoskeletal: General: No swelling, tenderness, deformity or signs of injury. Normal range of motion. Cervical back: Normal range of motion and neck supple. No rigidity. Right lower leg: No edema. Left lower leg: No edema. Lymphadenopathy: Cervical: No cervical adenopathy. Skin: General: Skin is warm and dry. Coloration: Skin is not jaundiced or pale. Findings: No bruising, erythema, lesion or rash. Neurological: General: No focal deficit present. Mental Status: She is alert and oriented to person, place, and time. Cranial Nerves: No cranial nerve deficit. Sensory: No sensory deficit. Motor: No weakness. Coordination: Coordination normal. Gait: Gait normal. Psychiatric: Mood and Affect: Mood normal. Behavior: Behavior normal. Thought Content: Thought content normal. Judgment: Judgment normal. Assessment and Plan ASSESSMENT/PLAN: 1. 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 Will treat with Nystatin topical on nipples, instructed to stagger with feeding and wipe off Nystatin suspension FOllow up with PCP Nneka Sheikh APRN.CNP [facility] 12-13-[facility]21 History of Presen t illness Narrative Patient underwent laparoscopic bilateral salpingectomy at [facility] on 12/08/2021 without complications. She also had biopsy of a vulvar lesion. She was discharged home same day. Pathology is pending.Tanika Honeycutt MD documented in this encounter [facility] 12-02-2021 Miscellaneous Notes Received faxed order for breast pump from [address] [place] [address] Way. Order form on RENE desk for signature documented in this encounter [facility] 11-24-2021 History and physical note Pre-Op History and Physical HPI: The patient is a 36 year old female presenting for pre-operative visit. She is scheduled for laparoscopic bilateral salpingectomy, for steriliztion on 12/09/2019. Procedure discussed along with risks, benefits and complications. Other alternatives discussed for management. Consent form signed? Yes. PAST MEDICAL HISTORY Diagnosis Date Anxiety History of gestational diabetes in prior , currently 03/16/2021 03/16/21- GDM A2 with previous . Gina Vieyra APRN.CNM PAST SURGICAL HISTORY Procedure Laterality Date NONE Current Outpatient Medications Medication Sig Dispense Refill labetalol (TRANDATE) 100 mg tablet Take 100 mg by mouth twice daily. multivitamin (CLASSIC ) 28 mg iron- 800 mcg tab(s) Take 1 tablet by mouth once daily. sertraline (ZOLOFT) 50 mg tablet Take 50 mg by mouth once daily. Insulin Syringe-Needle U-100 1 mL 31 gauge x 10/24 1 Each twice daily. (Patient not taking: Reported on 10/31/2021 ) 90 Each 3 No current facility-administered medications for this visit. ALLERGIES: Bee Sting PERSONAL HISTORY: Social History Tobacco Use Smoking status: Never Smoker Smokeless tobacco: Never Used Vaping Use Vaping Use: Never used Substance Use Topics Alcohol use: Not Currently Drug use: Never FAMILY HISTORY: FAMILY HISTORY Problem Relation Age of Onset Stroke Father REVIEW OF SYMPTOMS: GENERAL: denies fevers or chills ENDOCRINOLOGY: has not been on steroids Cardiology : denies palpitations or chest pain Respiratory: denies SOB or cough Hematology: denies history of prolonged bleeding or easy bruising or VTE Allergy: Denies history of personal or family history of allergy to anesthesia PHYSICAL EXAMINATION: VITALS: Last menstrual period 02/05/2021, currently . GENERAL: The patient is well nourished, well hydrated in no acute distress. , The patient is oriented to time, place, and person. NECK: Supple. No lynphadenopathy, normal thyroid, no thyromegaly. LUNGS: Clear to auscultation bilaterally. no wheezes, rhonchi or rales HEART: Regular rate and rhythm, Normal heart sounds and No murmurs or gallops IMPRESSION: sterilization request, vulvar lesions PLAN: The risks/benefits/alternatives and personal involved for the planned laparoscopic bilateral salpingectomy and vulvar biopsy were reviewed with the patient. Her questions were answered to her satisfaction and she desires to proceed. Consent was signed. I reviewed with her postop instructions and expectations. I have reviewed and updated past medical and surgical history, medications and allergies Tanika Honeycutt M.D. documented in [facility] 11-24-2021 History of Presen t illness Narrative VISIT Paz Wilder is a 36 year old year old here for visit. Delivery Summary: ROS/ Recovery: Feeding: Breast feeding problems: None Menses since delivery: spotting Menstrual pattern prior to : Irregular periods [place] since delivery: Not resumed Depression: denies symptoms of depression. OB Depression and Anxiety Screening- This Encounter (since 11/23/2021) None Emotional support: Yes Bowel symptoms: Negative for abdominal discomfort, blood in stools or black stools and change in bowel habits Abdomen: She reports no incisional redness, tenderness, erythema Bladder symptoms: No dysuria, gross hematuria, urinary frequency, urinary urgency, or incontinence Other issues: None Last Pap: 2020 normal HPV: Postivie type 16 PAST MEDICAL HISTORY Diagnosis Date Anxiety History of gestational diabetes in prior , currently 03/16/2021 03/16/21- GDM A2 with previous . Gina Vieyra, SUZANNE.CNM PAST SURGICAL HISTORY Procedure Laterality Date NONE FAMILY HISTORY Problem Relation Age of Onset Stroke Father Social History Tobacco Use Smoking status: Never Smoker Smokeless tobacco: Never Used Vaping Use Vaping Use: Never used Substance Use Topics Alcohol use: Not Currently Drug use: Never PHYSICAL EXAMINATION: LMP 02/05/2021 GENERAL: pleasant, female in no apparent distress HEENT: Normocephalic, atraumatic, mucus membranes moist and no lesions NECK: Supple, full range of motion, no adenopathy and thyroid normal DERMATOLOGY: Normal, without lesions, non-icteric and non-hirsute BREAST: soft, non-tender, symmetric, no dominant mass, normal nipple-areolar complex, no lymphadenopathy and no nipple discharge CHEST: Normal inspiratory effort ABDOMEN: soft, non-tender and no masses. INCISION: N/A PELVIC: external genitalia normal, normal Bartholin's glands, urethra, [place]'s glands, no vulvar lesions, no cervical lesions, good vaginal support, physiologic discharge present, normal appearing perineal body and perianal region, several hyperpigement skin lesions mons, buttock and right upper leg BIMANUAL: uterus normal size, shape and consistency, no adnexal masses and non-tender NEURO: alert and oriented x3,exam grossly non-focal EXTREMITIES: normal ASSESSMENT AND PLAN: 36 year old status post with normal course. Contraception plan: tubal ligation Follow up: RTC for annual exams and PRN due for pap in Tanika Honeycutt MD documented in [facility] encounter [facility] 11-04-2021 History of Presen t illness Narrative Our next available appointment opening for establishing is 03/14/22 for the patient with [facility]. She has been messaged if needs immediate assistance, we can have her seen for a different type of appointment other than establish. Thank you. VIRTUAL VISIT PROGRESS NOTE This is a virtual visit using [employer] video visit. It required patient-provider interaction for the medical decision making as documented below. Paz Wilder is a 36 year old female seen for follow up. Vaginal delivery 10/26/21. Started on Labetalol 100 mg BID . 129/68 before medication today. BP range 130-140's/70's on Labetalol. BP's were 130-140's early in the at < 20 week gestation. She is not established with a PCP. No known diagnosis of cHTN. HISTORY REVIEWED (electronic chart updated): PAST MEDICAL HISTORY Diagnosis Date Anxiety History of gestational diabetes in prior , currently 03/16/2021 03/16/21- GDM A2 with previous . Gina Vieyra APRN.CNM PAST SURGICAL HISTORY Procedure Laterality Date NONE FAMILY HISTORY Problem Relation Age of Onset Stroke Father Social History Tobacco Use Smoking status: Never Smoker Smokeless tobacco: Never Used Vaping Use Vaping Use: Never used Substance Use Topics Alcohol use: Not Currently Drug use: Never Current Outpatient Medications Medication Sig labetalol (TRANDATE) 100 mg tablet Take 100 mg by mouth twice daily. Insulin Syringe-Needle U-100 1 mL 31 gauge x 5/16 1 Each twice daily. (Patient not taking: Reported on 10/31/2021 ) multivitamin (CLASSIC ) 28 mg iron- 800 mcg tab(s) Take 1 tablet by mouth once daily. sertraline (ZOLOFT) 50 mg tablet Take 50 mg by mouth once daily. No current facility-administered medications for this visit. ALLERGIES Allergen Reactions Bee Sting Hives REVIEW OF SYSTEMS: As noted in HPI PHYSICAL EXAMINATION: VIDEO EXAM: (if completed, performed via video enabled technology) GENERAL: alert and appropriate, in no distress, well-hydrated, well nourished and happy, smiling, interactive ASSESSMENT: (Z39.2) state (primary encounter diagnosis) (R03.0) Elevated blood pressure reading without diagnosis of hypertension (E66.01, Z68.42) Class 3 severe obesity with body mass index (BMI) of 45.0 to 49.9 in adult, unspecified obesity type, unspecified whether serious comorbidity present (HCC) PLAN: Continue Labetalol and keep BG log Recommend establishing with PCP given concern for possible underlying cHTN. Will place referral and assist patient in scheduling so she can be seen prior to tubal RTO 6 week visit There are no Patient Instructions on file for this visit. I spent a total of 15 minutes on the date of the service which included preparing to see the patient, [id number] patient care, completing clinical documentation, obtaining and/or reviewing separately obtained history, counseling and educating the patient/family/caregiver and ordering medications, tests, or procedures Any Brandon DO documented in this encounter [facility] 10-31-2021 History of Presen t illness Narrative EARLY VISIT Obstetric History T1 L5 SAB0 IAB0 Ectopic0 Multiple0 Live Births1 Name of Baby 1: Not recorded Date: Not recorded GA: Not recorded Delivery: Not recorded Apgar1: Not recorded Apgar5: Not recorded Living: Not recorded Name of Baby 2: Not recorded Date: Not recorded GA: Not recorded Delivery: Not recorded Apgar1: Not recorded Apgar5: Not recorded Living: Not recorded Name of Baby 3: Not recorded Date: Not recorded GA: Not recorded Delivery: Not recorded Apgar1: Not recorded Apgar5: Not recorded Living: Not recorded Name of Baby 4: Not recorded Date: Not recorded GA: Not recorded Delivery: Not recorded Apgar1: Not recorded Apgar5: Not recorded Living: Not recorded Name of Baby 5: Not recorded Date: Not recorded GA: Not recorded Delivery: Not recorded Apgar1: Not recorded Apgar5: Not recorded Living: Not recorded Name of Baby 6: Not recorded Date: Not recorded GA: Not recorded Delivery: Not recorded Apgar1: Not recorded Apgar5: Not recorded Living: Not recorded Name of Baby 7: Not recorded Date: Not recorded GA: Not recorded Delivery: Not recorded Apgar1: Not recorded Apgar5: Not recorded Living: Not recorded Name of Baby 8: Not recorded Date: Not recorded GA: Not recorded Delivery: Not recorded Apgar1: Not recorded Apgar5: Not recorded Living: Not recorded Name of Baby 9: Not recorded Date: Not recorded GA: Not recorded Delivery: Not recorded Apgar1: Not recorded Apgar5: Not recorded Living: Not recorded Name of Baby Michele Aburto Date: 10/26/21 GA: 37w4d Delivery: Vaginal, Spontaneous Apgar1: 8 Apgar5: 9 Living: Living Paz Wilder is a 36 year old here for 1 week visit. Delivery Summary: ROS: General: Denies any fever or chills Hypertension Screening: Headache? intermittent, mild, resolves w/ tylenol Visual Changes? No Epigastric Pain? No Increased Swelling? No Taking any BP medications at home? Yes If applicable, monitoring BP at home? (If Yes, include results) yes, stable, lower after takes labetalol, on 100 mg bid Mood: stable on zoloft 50mg Depression: denies symptoms of depression. OB Depression and Anxiety Screening- This Encounter (since 10/30/2021) Over the past 2 weeks have you felt down, depressed, or hopeless? Negative Over the past two weeks, have you felt little interest or pleasure in doing things? Negative Feeling nervous, anxious or on edge 0-Not at all Not being able to stop or control worrying 0-Not al all Anxiety Pre-Screening Total (If >/= 3 additional questions will be reviewed) 0 Feeding: Breast feeding problems: None Bladder: No dysuria, gross hematuria, urinary frequency, urinary urgency, or incontinence Bowel symptoms: Negative for abdominal discomfort, blood in stools or black stools and change in bowel habits Abdomen: N/A Bleeding: light flow Bottom and Perineum: No issues Sleep: no sleep concerns, feels rested [place] since delivery: Not resumed Emotional support: Yes Exercise: N/A Other issues: None PHYSICAL EXAMINATION: BP 148/98 Wt 278 lb 3.2 oz (126.2 kg) LMP 02/05/2021 Yes BMI 46.29 kg/m General: pleasant,female in no apparent distress, A&O x 3. Skin warm and intact. Breast: Deferred Abdomen: Deferred /Incision: N/A Pelvic: Deferred Bimanual: Deferred ASSESSMENT AND PLAN: 1. 36 year old status post with normal course. 2. Contraception plan: tubal ligation. Reinforced 6-week pelvic rest. Encouraged condom usage should patient deviate. 3. Education: resources provided - see MA/RN note Follow up: Return to Clinic for 6 week visit and as needed plans tubal Medical Decision Making Tanika Honeycutt MD documented in this encounter [facility] 10-28-2021 Miscellaneous Notes Patient called and appointment scheduled. Randee Arias RN Patient was started on Labetalol 100 mg BID on discharge. BP cuff rx sent. She needs a BP check in office next week. documented in this encounter [facility] 10-27-2021 History of Presen t illness Narrative Patient delivered via by Dr. Mcnamara on 10/26/21 at [facility]. See OB history. Cammie Potts RN documented in this encounter [facility] 10-24-2021 Miscellaneous Notes SW- pt doing well. No HERNANDEZ, vision changes, regular ctx, vb, lof. Good FM PE: Gen- NAD, well appearing Abd- Soft, obese See flowsheet A/p 37 wk gestation - A2GDM: BG log reviewed. Over the weekend almost all postprandial blood sugars are elevated. All fasting WNL. Breakfast PP 89-138 with 2/7 elevated. Lunch PP 106-136 with 3/7 elevated. Dinner PP 124-151 with 6/7 elevated. Will increase Lispro for 2 units. BPP today 01/16 and scheduled for NST later this week. Will message M regarding delivery plan. Discussed barraza, pitocin induction with patient. Reviewed r/b/a to induction of labor and consent signed. Discussed possible 38-39 week induction but will wait to schedule until message sent to [facility] - RTO for NST Any Brandon DO documented in this encounter [facility] 10-24-2021 Instructions Kae Moctezuma Ma - 10/24/2021 8:17 AM EDT SEQUENTIAL SCREENINGS [facility] offers sequential screenings for women who are interested in screenings for chromosomal abnormalities and certain defects during a . The sequential screen combines ultrasound and blood tests to determine the risk of chromosomal abnormalities, including Down's Syndrome (Trisomy 21) and Trisomy 18, as well as open neural tube defects including spina bifida. Ultrasound examination is performed between 11 weeks and 13 weeks gestational age. Blood tests are drawn after the ultrasound and again later in the between 15 and 21 weeks gestational age. Please let your physician know if you are interested in this testing. It will require an appointment with our pet care technician. This is not an ultrasound performed by a physician in our office during a routine visit. SIGNS AND SYMPTOMS OF LABOR 1. Contractions every 10 minutes or more often 2. Clear, pink, or brownish fluid (water) leaking from vagina 3. Feeling that baby is pushing down, pressure 4. Low, dull backache 5. Cramps that feel like a period 6. Cramps with or without diarrhea If you notice any of the above symptoms, contact our office at [phone] and ask to speak with a nurse. After hours, you can call doctors registry at [phone] OR call [facility] at [phone] and ask to have the doctor busperson paged. If you consider this an emergency, dial 9-1-5 or go to your nearest emergency department. NEED HELP? Are you dealing with a violent or abusive relationship? Are you a victim of rape or sexual assult? Call [facility] ([place]) 24 hour Crisis Hotline: 571.351.1778 or 713-163-3327. MANUAL Your Guide to a Healthy manual is now on-line. Visit [email or web address] to download your free copy documented in this encounter [facility] 10-20-2021 Miscellaneous Notes Patient here for weekly NST. NST reactive, Cat. 1 tracing. RTO- 1 week or sooner if needed. Gina Vieyra APRN.CNM documented in this encounter [facility] 10-20-2021 History of Presen t illness Narrative NST SUMMARY PROVIDER ASSESSMENT AND INTERPRETATION Paz Wilder is a 36 year old female, , who is at 36w5d with an WU of 11/12/2021, by Last Menstrual Period dating method. Indications for NST: AMA, Diabetes - Insulin Controlled and Obesity Baseline: 150 Variability: Moderate Accelerations: Present 15 X 15 Decelerations: None Contractions: TOCO: None Interpretation: Category I and Reactive SIGNATURE: Gina Vieyra APRN.CNM documented in this [facility] 10-20-2021 Instructions Latonia Rivers Pr - 10/20/2021 8:56 AM EDT SEQUENTIAL SCREENINGS [facility] offers sequential screenings for women who are interested in screenings for chromosomal abnormalities and certain defects during a . The sequential screen combines ultrasound and blood tests to determine the risk of chromosomal abnormalities, including Down's Syndrome (Trisomy 21) and Trisomy 18, as well as open neural tube defects including spina bifida. Ultrasound examination is performed between 11 weeks and 13 weeks gestational age. Blood tests are drawn after the ultrasound and again later in the between 15 and 21 weeks gestational age. Please let your physician know if you are interested in this testing. It will require an appointment with our pet care technician. This is not an ultrasound performed by a physician in our office during a routine visit. SIGNS AND SYMPTOMS OF LABOR 1. Contractions every 10 minutes or more often 2. Clear, pink, or brownish fluid (water) leaking from vagina 3. Feeling that baby is pushing down, pressure 4. Low, dull backache 5. Cramps that feel like a period 6. Cramps with or without diarrhea If you notice any of the above symptoms, contact our office at [phone] and ask to speak with a nurse. After hours, you can call doctors registry at [phone] OR call [facility] at [phone] and ask to have the doctor busperson paged. If you consider this an emergency, dial 9-1-1 or go to your nearest emergency department. NEED HELP? Are you dealing with a violent or abusive relationship? Are you a victim of rape or sexual assult? Call [facility] ([place]) 24 hour Crisis Hotline: 862.196.8402 or 416-737-1971. MANUAL Your Guide to a Healthy manual is now on-line. Visit [email or web address] to download your free copy documented in this encounter [facility] 10-17-2021 Miscellaneous Notes RR- VB No. LOF No. CTXS No. Movement: present. Other c/o: some loose stools and nausea and emesis twice a day last few days. Staying hydrated. No sick contacts. Denies HERNANDEZ or visual changes Medication list reviewed. Physical Exam See Flow Sheet Abd: soft, nontender, gravid Ext: edema: 1+ , 2+DTrs, no clonus A/P 36w2d Estimated Date of Delivery: 11/12/21 Kick counts reviewed, GDMA2 bs log reviewed, good control, keep insulin the same. BPP 01/16. EFW is on track for previous deliveries (8-8lb 11 oz range). F/u in 1 week or prn d/w her recommend induction at 39 weeks unless other indication arises for earlier delivery, she agrees w/ plan. Tanika Honeycutt M.D. documented in this encounter [facility] 10-17-2021 Instructions Latonia Rivers Ma - 10/17/2021 8:14 AM EDT SEQUENTIAL SCREENINGS [facility] offers sequential screenings for women who are interested in screenings for chromosomal abnormalities and certain defects during a . The sequential screen combines ultrasound and blood tests to determine the risk of chromosomal abnormalities, including Down's Syndrome (Trisomy 21) and Trisomy 18, as well as open neural tube defects including spina bifida. Ultrasound examination is performed between 11 weeks and 13 weeks gestational age. Blood tests are drawn after the ultrasound and again later in the between 15 and 21 weeks gestational age. Please let your physician know if you are interested in this testing. It will require an appointment with our pet care technician. This is not an ultrasound performed by a physician in our office during a routine visit. SIGNS AND SYMPTOMS OF LABOR 1. Contractions every 10 minutes or more often 2. Clear, pink, or brownish fluid (water) leaking from vagina 3. Feeling that baby is pushing down, pressure 4. Low, dull backache 5. Cramps that feel like a period 6. Cramps with or without diarrhea If you notice any of the above symptoms, contact our office at [phone] and ask to speak with a nurse. After hours, you can call doctors registry at [phone] OR call [facility] at [phone] and ask to have the doctor busperson paged. If you consider this an emergency, dial 8-6-9 or go to your nearest emergency department. NEED HELP? Are you dealing with a violent or abusive relationship? Are you a victim of rape or sexual assult? Call [facility] ([place]) 24 hour Crisis Hotline: 482.361.1222 or 787-755-4192. MANUAL Your Guide to a Healthy manual is now on-line. Visit [email or web address] to download your free copy documented [facility] 10[facility]13[facility]21 Miscellaneous Notes See other MyChart message from today. Randee Arias RN Patient has NST appointment today. Randee Juana RN documented in this encounter [facility] 10-13-2021 History of Presen t illness Narrative NST SUMMARY PROVIDER ASSESSMENT AND INTERPRETATION Paz Wilder is a 36 year old female, , who is at 35w5d with an WU of 11/12/2021, by Last Menstrual Period dating method. Indications for NST: Gestational Diabetes - Insulin Controlled and Obesity Baseline: 150 Variability: Moderate Accelerations: Present 15 X 15 Decelerations: None Contractions: TOCO: None Interpretation: Category I and Reactive SIGNATURE: Tanika Honeycutt MD documented in this encounter [facility] 10-13-2021 Miscellaneous Notes RR- VB No. LOF No. CTXS No. Movement: present. Other c/o: No. Medication list reviewed. Physical Exam See Flow Sheet Abd: soft, nontender, gravid Ext: edema: Trace A/P 35w5d Estimated Date of Delivery: 11/12/21 BS log reviewed, insulin adjusted return weekly for NSTs and OB visits kick counts. Tanika Honeycutt M.D. documented in this encounter [facility] 10-10-2021 Miscellaneous Notes Received FMLA for pt's significant other, completed, original placed in nurses station, copy scanned into EMR and filed in [employer] suite. 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 Anastasiia Rosen LPN documented in this encounter [facility] 10-10-2021 Miscellaneous Notes SW- Some vaginal pain and pressure. No regular ctx, vb, lof. Good FM. She denies HERNANDEZ, vision changes, upper abd pain, malaise. PE: Gen- NAD, well appearing Abd- Soft, NT, obese Ext- 2+ patellar reflexes See flowsheet A/p - Trace proteinuria: No hyper reflexia, BP normal and no pre e symptoms today. Discussed warning signs/sympoms of pre e and when to call - A2GDM: Dinner Lispro just adjusted. Some improvement but still some PP dinner 130's. She will send my chart message in later this week after 1 week of checking BG since the insulin was adjusted. Will possibly need to increase Lispro by 2-4 units. BPP 01/16 today and she is scheduled for weekly antepartum testing. Growth US today. Daily FKC's. Discussed possible 37-39 week delivery pending BG control - RTO 1 wk Any Brandon DO documented in this encounter [facility] 10-10-2021 Instructions Colleen Argueta Pr - 10/10/2021 8:45 AM EDT SEQUENTIAL SCREENINGS [facility] offers sequential screenings for women who are interested in screenings for chromosomal abnormalities and certain defects during a . The sequential screen combines ultrasound and blood tests to determine the risk of chromosomal abnormalities, including Down's Syndrome (Trisomy 21) and Trisomy 18, as well as open neural tube defects including spina bifida. Ultrasound examination is performed between 11 weeks and 13 weeks gestational age. Blood tests are drawn after the ultrasound and again later in the between 15 and 21 weeks gestational age. Please let your physician know if you are interested in this testing. It will require an appointment with our pet care technician. This is not an ultrasound performed by a physician in our office during a routine visit. SIGNS AND SYMPTOMS OF LABOR 1. Contractions every 10 minutes or more often 2. Clear, pink, or brownish fluid (water) leaking from vagina 3. Feeling that baby is pushing down, pressure 4. Low, dull backache 5. Cramps that feel like a period 6. Cramps with or without diarrhea If you notice any of the above symptoms, contact our office at [phone] and ask to speak with a nurse. After hours, you can call doctors registry at [phone] OR call [facility] at [phone] and ask to have the doctor busperson paged. If you consider this an emergency, dial 9-1-8 or go to your nearest emergency department. NEED HELP? Are you dealing with a violent or abusive relationship? Are you a victim of rape or sexual assult? Call [facility] ([place]) 24 hour Crisis Hotline: 394.921.6933 or 451-373-9683. MANUAL Your Guide to a Healthy manual is now on-line. Visit [email or web address] to download your free copy documented in this encounter [facility] 10-06-2021 History of Presen t illness Narrative NST SUMMARY PROVIDER ASSESSMENT AND INTERPRETATION Paz Wilder is a 36 year old female, , who is at 34w5d with an WU of 11/12/2021, by Last Menstrual Period dating method. Indications for NST: Antiphospholipid Syndrome and Gestational Diabetes - Insulin Controlled Baseline: 140 Variability: Moderate Accelerations: Present 15 X 15 Decelerations: None Contractions: TOCO: None Interpretation: Reactive SIGNATURE: Miley Khan MD documented in this encounter [facility] 10-06-2021 Miscellaneous Notes KJ - VB No. LOF No. CTXS No. Movement: present. Other c/o: No. Medication list reviewed. Physical Exam See Flow Sheet Gen: no accute distress, well appearing Abd: soft, nontender, gravid A/P 34w5d Estimated Date of Delivery: 11/12/21 GDMA2 - BS log reviewed & BS overall normal other than PP dinner. Dinner lispro adjusted. Continue weekly testing. Growth US Q4 weeks. PTL precautions reviewed, Kick counts reviewed. Miley Khan MD documented in this encounter [facility] 10-06-2021 Instructions Kae Moctezuma Ma - 10/06/2021 9:15 AM EDT SEQUENTIAL SCREENINGS [facility] offers sequential screenings for women who are interested in screenings for chromosomal abnormalities and certain defects during a . The sequential screen combines ultrasound and blood tests to determine the risk of chromosomal abnormalities, including Down's Syndrome (Trisomy 21) and Trisomy 18, as well as open neural tube defects including spina bifida. Ultrasound examination is performed between 11 weeks and 13 weeks gestational age. Blood tests are drawn after the ultrasound and again later in the between 15 and 21 weeks gestational age. Please let your physician know if you are interested in this testing. It will require an appointment with our pet care technician. This is not an ultrasound performed by a physician in our office during a routine visit. SIGNS AND SYMPTOMS OF LABOR 1. Contractions every 10 minutes or more often 2. Clear, pink, or brownish fluid (water) leaking from vagina 3. Feeling that baby is pushing down, pressure 4. Low, dull backache 5. Cramps that feel like a period 6. Cramps with or without diarrhea If you notice any of the above symptoms, contact our office at [phone] and ask to speak with a nurse. After hours, you can call doctors registry at [phone] OR call [facility] at [phone] and ask to have the doctor busperson paged. If you consider this an emergency, dial 2-9-0 or go to your nearest emergency department. NEED HELP? Are you dealing with a violent or abusive relationship? Are you a victim of rape or sexual assult? Call [facility] ([facility] 24 hour Crisis Hotline: 266.898.8978 or 821-026-4029. MANUAL Your Guide to a Healthy manual is now on-line. Visit [email or web address] to download your free copy documented in this encounter [facility] 09-29-2021 History of Presen t illness Narrative NST SUMMARY PROVIDER ASSESSMENT AND INTERPRETATION Paz Wilder is a 36 year old female, , who is at 33w5d with an WU of 11/12/2021, by Last Menstrual Period dating method. Indications for NST: Gestational Diabetes - Insulin Controlled Baseline: 150 Variability: Moderate Accelerations: Present 15 X 15 Decelerations: Variable Contractions: TOCO: None Interpretation: Reactive SIGNATURE: Miley Khan MD documented in this encounter [facility] 09-29-2021 Miscellaneous Notes KJ - VB No. LOF No. CTXS No. Movement: present. Other c/o: No. Medication list reviewed. Physical Exam See Flow Sheet Gen: no accute distress, well appearing Abd: soft, nontender, gravid A/P 33w5d Estimated Date of Delivery: 11/12/21 GDMA2 - BS log reviewed & most BS mildly elevated other than PP breakfast. Insulin adjusted. Continue weekly testing. Growth US Q4 weeks. PTL precautions reviewed, Kick counts reviewed. Miley Khan MD documented in this encounter [facility] 09-29-2021 Jayashree Moctezuma Ma - 09/29/2021 8:57 AM EDT SEQUENTIAL SCREENINGS [facility] offers sequential screenings for women who are interested in screenings for chromosomal abnormalities and certain defects during a . The sequential screen combines ultrasound and blood tests to determine the risk of chromosomal abnormalities, including Down's Syndrome (Trisomy 21) and Trisomy 18, as well as open neural tube defects including spina bifida. Ultrasound examination is performed between 11 weeks and 13 weeks gestational age. Blood tests are drawn after the ultrasound and again later in the between 15 and 21 weeks gestational age. Please let your physician know if you are interested in this testing. It will require an appointment with our pet care technician. This is not an ultrasound performed by a physician in our office during a routine visit. SIGNS AND SYMPTOMS OF LABOR 1. Contractions every 10 minutes or more often 2. Clear, pink, or brownish fluid (water) leaking from vagina 3. Feeling that baby is pushing down, pressure 4. Low, dull backache 5. Cramps that feel like a period 6. Cramps with or without diarrhea If you notice any of the above symptoms, contact our office at [phone] and ask to speak with a nurse. After hours, you can call doctors registry at [phone] OR call [facility] at [phone] and ask to have the doctor busperson paged. If you consider this an emergency, dial 9--1 or go to your nearest emergency department. NEED HELP? Are you dealing with a violent or abusive relationship? Are you a victim of rape or sexual assult? Call [facility] ([place]) 24 hour Crisis Hotline: 506.511.8130 or 710-277-7337. MANUAL Your Guide to a Healthy manual is now on-line. Visit [email or web address] to download your free copy documented in this encounter [facility] 09-21-2021 Miscellaneous Notes SW- Has been having vertigo and off and on occular migraines. No ctx, vb, lof. Good FM. No current HERNANDEZ or vision changes. PE: Gen- NAD, well appearing Abd- Obese See flowsheet A/p 32 wk gestation - A2GDM: Majority of fasting, PP lunch, and PP breakfast WNL. More than 50% PP dinner still elevated, will increase lispro by 2 units. BPP 01/16 today and had growth US. Repeat growth US in 4 wks. Weekly NST already scheduled. Will do weekly BPP as well for twice weekly antepartum testing given obesity, AMA and GDM - Discussed warning signs and symptoms of pre e and when to call - RTO 1 wk Any Brandon DO documented in this encounter [facility] 09-21-2021 Instructions Randi Salter MA - 09/21/2021 8:11 AM EDT SEQUENTIAL SCREENINGS [facility] offers sequential screenings for women who are interested in screenings for chromosomal abnormalities and certain defects during a . The sequential screen combines ultrasound and blood tests to determine the risk of chromosomal abnormalities, including Down's Syndrome (Trisomy 21) and Trisomy 18, as well as open neural tube defects including spina bifida. Ultrasound examination is performed between 11 weeks and 13 weeks gestational age. Blood tests are drawn after the ultrasound and again later in the between 15 and 21 weeks gestational age. Please let your physician know if you are interested in this testing. It will require an appointment with our pet care technician. This is not an ultrasound performed by a physician in our office during a routine visit. SIGNS AND SYMPTOMS OF LABOR 1. Contractions every 10 minutes or more often 2. Clear, pink, or brownish fluid (water) leaking from vagina 3. Feeling that baby is pushing down, pressure 4. Low, dull backache 5. Cramps that feel like a period 6. Cramps with or without diarrhea If you notice any of the above symptoms, contact our office at [phone] and ask to speak with a nurse. After hours, you can call doctors registry at [phone] OR call [facility] at [phone] and ask to have the doctor busperson paged. If you consider this an emergency, dial 9-1-3 or go to your nearest emergency department. NEED HELP? Are you dealing with a violent or abusive relationship? Are you a victim of rape or sexual assult? Call [facility] ([place]) 24 hour Crisis Hotline: 614.299.1590 or 420-672-8379. MANUAL Your Guide to a Healthy manual is now on-line. Visit [email or web address] to download your free copy documented in this encounter [facility] 09-09-2021 Miscellaneous Notes KJ - Patient was seen last night for a headache with vision changes. Today her vision changes have resolved but headache is still present. Tylenol makes the headache better. VB No. LOF No. CTXS No. Movement: present. Other c/o: No. Medication list reviewed. Physical Exam See Flow Sheet Gen: no accute distress, well appearing Abd: soft, nontender, gravid A/P 30w6d Estimated Date of Delivery: 11/12/21 Headache - BP normal. Advised on magnesium to prevent headaches. Reviewed headache & preE precautions. Labor precautions reviewed, Kick counts reviewed. GDM - FBS & PP dinner elevated but other PPBS mostly normal. Adjust NPH & add lispro with dinner. Growth US in 2 weeks. Miley Khan MD documented in this encounter [facility] 09-09-2021 Instructions Latonia Rivers Ma - 09/09/2021 8:10 AM EDT SEQUENTIAL SCREENINGS [facility] offers sequential screenings for women who are interested in screenings for chromosomal abnormalities and certain defects during a . The sequential screen combines ultrasound and blood tests to determine the risk of chromosomal abnormalities, including Down's Syndrome (Trisomy 21) and Trisomy 18, as well as open neural tube defects including spina bifida. Ultrasound examination is performed between 11 weeks and 13 weeks gestational age. Blood tests are drawn after the ultrasound and again later in the between 15 and 21 weeks gestational age. Please let your physician know if you are interested in this testing. It will require an appointment with our pet care technician. This is not an ultrasound performed by a physician in our office during a routine visit. SIGNS AND SYMPTOMS OF LABOR 1. Contractions every 10 minutes or more often 2. Clear, pink, or brownish fluid (water) leaking from vagina 3. Feeling that baby is pushing down, pressure 4. Low, dull backache 5. Cramps that feel like a period 6. Cramps with or without diarrhea If you notice any of the above symptoms, contact our office at [phone] and ask to speak with a nurse. After hours, you can call doctors registry at [phone] OR call [facility] at [phone] and ask to have the doctor busperson paged. If you consider this an emergency, dial 9--1 or go to your nearest emergency department. NEED HELP? Are you dealing with a violent or abusive relationship? Are you a victim of rape or sexual assult? Call [facility] ([place]) 24 hour Crisis Hotline: 472.207.9313 or 944-088-6415. MANUAL Your Guide to a Healthy manual is now on-line. Visit [email or web address] to download your free copy documented in this encounter [facility] 09-08-2021 Miscellaneous Notes Patient was advised to go to L&D for evaluation. See phone note. Saumya Copeland RN See 09/08/21 phone note. Saumya Copeland RN 30w5d Left message for patient to call office. Please triage patient when she calls back. Saumya Copeland RN documented in this encounter [facility] 09-08-2021 Miscellaneous Notes Patient sent a [employer] message that her BP is 175/94. Notified DOC. Called patient and advised to go to L&D. Updated H&P sent to L&D. Saumya Copeland RN Pt returned call and stated that she is feeling pretty well, she is noting larger spots or lines in her central vision. She is not having any pain at this current time just the visual disturbance. This all began yesterday. Pt has no c/o ringing in the ears, lightheadedness, no photosensitivity, baby is moving about as per usual. She is encouraging fluids, she has had a small amount of caffeine this afternoon but has not noted any change in her sxs. Pt stating that she will keep her appointment for tomorrow morning unless there are further instructions. Anastasiia Rosen LPN documented in this [facility] documented as of this encounter (statuses as of 11/24/2021) [facility] History of Past illness Narrative* Problem Noted Date Resolved Date control counseling 08/16/2021 022 Overview: 08/16/21 - title 19 papers signed - Miley Khan MD Insulin controlled gestation al diabetes mellitus (GDM) in second trimester 06/21/2021 11/24/2021 Overview: 10/10/21 See updated med list. NPH AM and PM, and Lispro with dinner. Discussed plan of care with MFM given suboptimal control as continuing to increase Lispro, and plan is for twice weekly antepartum testing and delivery 37-39 weeks. SW 06/21/21: started 10Units NPH at night. Niurka Polk MD Obesity in 06/21/2021 11/24/2021 AMA (advanced maternal age) multigravida 35+, second trimester 06/21/2021 11/24/2021 Diet controlled gestational diabetes mellitus (GDM) in first trimester 05/03/2021 06/21/2021 Overview: 05/03/21- 3 hour GTT: All readings elevated. Supplies ordered and wall mirror department supervisor consult. Gina Vieyra APRN.CNM Elevated glucose 04/27/2021 10/06/2021 Overview: 04/27/21- Elevated early GCT. 3 hour GTT ordered. Gina Vieyra APRN.CNM History of gestational diabe erick in prior , currently 03/16/2021 10/06/2021 Overview: 03/16/21- GDM A2 with previous . Gina Vieyra APRN.CNM Supervision of other high risk pregnancies, firs t trimester 03/16/2021 11/24/2021 Overview: 03/16/21- on 04/01/20. Gina Vieyra APRN.CNM Obesity complicating , first trimester 03/16/2021 11/24/2021 Overview: 03/16/21- BMI- 50.92. Gina Vieyra APRN.CNM documented as of this encounter (statuses as of 12/13/2021) [facility] History of Past illness Narrative* Problem Noted Date Resolved Date control counseling 08/16/2021 022 Overview: 08/16/21 - title 19 papers signed - Miley Khan MD Insulin controlled gestation al diabetes mellitus (GDM) in second trimester 06/21/2021 11/24/2021 Overview: 10/10/21 See updated med list. NPH AM and PM, and Lispro with dinner. Discussed plan of care with MFM given suboptimal control as continuing to increase Lispro, and plan is for twice weekly antepartum testing and delivery 37-39 weeks. SW 06/21/21: started 10Units NPH at night. Niurka Polk MD Obesity in 06/21/2021 11/24/2021 AMA (advanced maternal age) multigravida 35+, second trimester 06/21/2021 11/24/2021 Diet controlled gestational diabetes mellitus (GDM) in first trimester 05/03/2021 06/21/2021 Overview: 05/03/21- 3 hour GTT: All readings elevated. Supplies ordered and wall mirror department supervisor consult. Gina Vieyra APRN.CNM Elevated glucose 04/27/2021 10/06/2021 Overview: 04/27/21- Elevated early GCT. 3 hour GTT ordered. Gina Vieyra APRN.CNM History of gestational diabe erick in prior , currently 03/16/2021 10/06/2021 Overview: 03/16/21- GDM A2 with previous . Gina Vieyra APRN.CNM Supervision of other high risk pregnancies, firs t trimester 03/16/2021 11/24/2021 Overview: 03/16/21- on 04/01/20. Gina Vieyra APRN.CNM Obesity complicating , first trimester 03/16/2021 11/24/2021 Overview: 03/16/21- BMI- 50.92. Gina Vieyra APRN.CNM documented as of this encounter (statuses as of 12/13/2021) [facility] History of Past illness Narrative* Problem Noted Date Resolved Date control counseling 08/16/2021 022 Overview: 08/16/21 - title 19 papers signed - Miley Khan MD Insulin controlled gestation al diabetes mellitus (GDM) in second trimester 06/21/2021 11/24/2021 Overview: 10/10/21 See updated med list. NPH AM and PM, and Lispro with dinner. Discussed plan of care with MFM given suboptimal control as continuing to increase Lispro, and plan is for twice weekly antepartum testing and delivery 37-39 weeks. SW 06/21/21: started 10Units NPH at night. Niurka Polk MD Obesity in 06/21/2021 11/24/2021 AMA (advanced maternal age) multigravida 35+, second trimester 06/21/2021 11/24/2021 Diet controlled gestational diabetes mellitus (GDM) in first trimester 05/03/2021 06/21/2021 Overview: 05/03/21- 3 hour GTT: All readings elevated. Supplies ordered and wall mirror department supervisor consult. Gina Vieyra APRN.CNM Elevated glucose 04/27/2021 10/06/2021 Overview: 04/27/21- Elevated early GCT. 3 hour GTT ordered. Gina Vieyra APRN.CNM History of gestational diabe erick in prior , currently 03/16/2021 10/06/2021 Overview: 03/16/21- GDM A2 with previous . Gina Vieyra APRN.CNM Supervision of other high risk pregnancies, firs t trimester 03/16/2021 11/24/2021 Overview: 03/16/21- on 04/01/20. Gina Vieyra APRN.CNM Obesity complicating , first trimester 03/16/2021 11/24/2021 Overview: 03/16/21- BMI- 50.92. Gina Vieyra APRN.CNM documented as of this encounter (statuses as of 12/13/2021) [facility] History of Past illness Narrative* Problem Noted Date Resolved Date control counseling 08/16/2021 022 Overview: 08/16/21 - title 19 papers signed - Miley Khan MD Insulin controlled gestation al diabetes mellitus (GDM) in second trimester 06/21/2021 11/24/2021 Overview: 10/10/21 See updated med list. NPH AM and PM, and Lispro with dinner. Discussed plan of care with MFM given suboptimal control as continuing to increase Lispro, and plan is for twice weekly antepartum testing and delivery 37-39 weeks. SW 06/21/21: started 10Units NPH at night. Niurka Polk MD Obesity in 06/21/2021 11/24/2021 AMA (advanced maternal age) multigravida 35+, second trimester 06/21/2021 11/24/2021 Diet controlled gestational diabetes mellitus (GDM) in first trimester 05/03/2021 06/21/2021 Overview: 05/03/21- 3 hour GTT: All readings elevated. Supplies ordered and wall mirror department supervisor consult. Gina Vieyra APRN.CNM Elevated glucose 04/27/2021 10/06/2021 Overview: 04/27/21- Elevated early GCT. 3 hour GTT ordered. Gina Vieyra APRN.CNM History of gestational diabe erick in prior , currently 03/16/2021 10/06/2021 Overview: 03/16/21- GDM A2 with previous . Gina Vieyra APRN.CNM Supervision of other high risk pregnancies, firs t trimester 03/16/2021 11/24/2021 Overview: 03/16/21- on 04/01/20. Gina Vieyra APRN.CNM Obesity complicating , first trimester 03/16/2021 11/24/2021 Overview: 03/16/21- BMI- 50.92. Gina Vieyra APRN.CNM documented as of this encounter (statuses as of 12/13/2021) [facility] History of Past illness Narrative* Problem Noted Date Resolved Date control counseling 08/16/2021 022 Overview: 08/16/21 - title 19 papers signed - Miley Khan MD Insulin controlled gestation al diabetes mellitus (GDM) in second trimester 06/21/2021 11/24/2021 Overview: 10/10/21 See updated med list. NPH AM and PM, and Lispro with dinner. Discussed plan of care with MFM given suboptimal control as continuing to increase Lispro, and plan is for twice weekly antepartum testing and delivery 37-39 weeks. SW 06/21/21: started [employer] NPH at night. Niurka Polk MD Obesity in 06/21/2021 11/24/2021 AMA (advanced maternal age) multigravida 35+, second trimester 06/21/2021 11/24/2021 Diet controlled gestational diabetes mellitus (GDM) in first trimester 05/03/2021 06/21/2021 Overview: 11/23/21- 3 hour GTT: All readings elevated. Supplies ordered and wall mirror department supervisor consult. Gina Vieyra APRN.CNM Elevated glucose 04/27/2021 10/06/2021 Overview: 04/27/21- Elevated early GCT. 3 hour GTT ordered. Gina Vieyra APRN.CNM History of gestational diabe erick in prior , currently 03/16/2021 10/06/2021 Overview: 03/16/21- GDM A2 with previous . Gina Vieyra APRN.CNM Supervision of other high risk pregnancies, firs t trimester 03/16/2021 11/24/2021 Overview: 03/16/21- on 04/01/20. Gina Vieyra APRN.CNM Obesity complicating , first trimester 03/16/2021 11/24/2021 Overview: 03/16/21- BMI- 50.92. Gina Vieyra APRN.CNM documented as of this encounter (statuses as of 12/13/2021) [facility] History of Past illness Narrative* Problem Noted Date Resolved Date control counseling 08/16/2021 022 Overview: 08/16/21 - title 19 papers signed - Miley Khan MD Insulin controlled gestation al diabetes mellitus (GDM) in second trimester 06/21/2021 11/24/2021 Overview: 10/10/21 See updated med list. NPH AM and PM, and Lispro with dinner. Discussed plan of care with MFM given suboptimal control as continuing to increase Lispro, and plan is for twice weekly antepartum testing and delivery 37-39 weeks. SW 06/21/21: started [employer] NPH at night. Niurka Polk MD Obesity in 06/21/2021 11/24/2021 AMA (advanced maternal age) multigravida 35+, second trimester 06/21/2021 11/24/2021 Diet controlled gestational diabetes mellitus (GDM) in first trimester 05/03/2021 06/21/2021 Overview: 05/03/21- 3 hour GTT: All readings elevated. Supplies ordered and wall mirror department supervisor consult. Gina Vieyra APRN.CNM Elevated glucose 04/27/2021 10/06/2021 Overview: 04/27/21- Elevated early GCT. 3 hour GTT ordered. Gina Vieyra APRN.CNM History of gestational diabe erick in prior , currently 03/16/2021 10/06/2021 Overview: 03/16/21- GDM A2 with previous . Gina Vieyra APRN.CNM Supervision of other high risk pregnancies, firs t trimester 03/16/2021 11/24/2021 Overview: 03/16/21- on 04/01/20. Gina Vieyra APRN.CNM Obesity complicating , first trimester 03/16/2021 11/24/2021 Overview: 03/16/21- BMI- 50.92. Gina Vieyra APRN.CNM documented as of this encounter (statuses as of 12/13/2021) [facility] History of Past illness Narrative* Problem Noted Date Resolved Date control counseling 08/16/2021 022 Overview: 08/16/21 - title 19 papers signed - Miley Khan MD Insulin controlled gestation al diabetes mellitus (GDM) in second trimester 06/21/2021 11/24/2021 Overview: 10/10/21 See updated med list. NPH AM and PM, and Lispro with dinner. Discussed plan of care with MFM given suboptimal control as continuing to increase Lispro, and plan is for twice weekly antepartum testing and delivery 37-39 weeks. SW 06/21/21: started [employer] NPH at night. Niurka Polk MD Obesity in 06/21/2021 11/24/2021 AMA (advanced maternal age) multigravida 35+, second trimester 06/21/2021 11/24/2021 Diet controlled gestational diabetes mellitus (GDM) in first trimester 05/03/2021 06/21/2021 Overview: 05/03/21- 3 hour GTT: All readings elevated. Supplies ordered and wall mirror department supervisor consult. Gina Vieyra APRN.CNM Elevated glucose 04/27/2021 10/06/2021 Overview: 04/27/21- Elevated early GCT. 3 hour GTT ordered. Gina Vieyra APRN.CNM History of gestational diabe erick in prior , currently 03/16/2021 10/06/2021 Overview: 03/16/21- GDM A2 with previous . Gina Vieyra APRN.CNM Supervision of other high risk pregnancies, firs t trimester 03/16/2021 11/24/2021 Overview: 03/16/21- on 04/01/20. Gina Vieyra APRN.CNM Obesity complicating , first trimester 03/16/2021 11/24/2021 Overview: 03/16/21- BMI- 50.92. Gina Vieyra APRN.CNM documented as of this encounter (statuses as of 12/13/2021) [facility] History of Past illness Narrative* Problem Noted Date Resolved Date control counseling 08/16/2021 022 Overview: 08/16/21 - title 19 papers signed - Miley Khan MD Insulin controlled gestation al diabetes mellitus (GDM) in second trimester 06/21/2021 11/24/2021 Overview: 10/10/21 See updated med list. NPH AM and PM, and Lispro with dinner. Discussed plan of care with MFM given suboptimal control as continuing to increase Lispro, and plan is for twice weekly antepartum testing and delivery 37-39 weeks. SW 06/21/21: started [employer] NPH at night. Niurka Polk MD Obesity in 06/21/2021 11/24/2021 AMA (advanced maternal age) multigravida 35+, second trimester 06/21/2021 11/24/2021 Diet controlled gestational diabetes mellitus (GDM) in first trimester 05/03/2021 06/21/2021 Overview: 05/03/21- 3 hour GTT: All readings elevated. Supplies ordered and wall mirror department supervisor consult. Gina Vieyra APRN.CNM Elevated glucose 04/27/2021 10/06/2021 Overview: 04/27/21- Elevated early GCT. 3 hour GTT ordered. Gina Vieyra APRN.CNM History of gestational diabe erick in prior , currently 03/16/2021 10/06/2021 Overview: 03/16/21- GDM A2 with previous . Gina Vieyra APRN.CNM Supervision of other high risk pregnancies, firs t trimester 03/16/2021 11/24/2021 Overview: 03/16/21- on 04/01/20. Gina Vieyra APRN.CNM Obesity complicating , first trimester 03/16/2021 11/24/2021 Overview: 03/16/21- BMI- 50.92. Gina Vieyra APRN.CNM documented as of this encounter (statuses as of 12/13/2021) [facility] History of Past illness Narrative* Problem Noted Date Resolved Date control counseling 08/16/2021 022 Overview: 08/16/21 - title 19 papers signed - Miley Khan MD Insulin controlled gestation al diabetes mellitus (GDM) in second trimester 06/21/2021 11/24/2021 Overview: 10/10/21 See updated med list. NPH AM and PM, and Lispro with dinner. Discussed plan of care with MFM given suboptimal control as continuing to increase Lispro, and plan is for twice weekly antepartum testing and delivery 37-39 weeks. SW 06/21/21: started [employer] NPH at night. Niurka Polk MD Obesity in 06/21/2021 11/24/2021 AMA (advanced maternal age) multigravida 35+, second trimester 06/21/2021 11/24/2021 Diet controlled gestational diabetes mellitus (GDM) in first trimester 05/03/2021 06/21/2021 Overview: 05/03/21- 3 hour GTT: All readings elevated. Supplies ordered and wall mirror department supervisor consult. Gina Vieyra APRN.CNM Elevated glucose 04/27/2021 10/06/2021 Overview: 04/27/21- Elevated early GCT. 3 hour GTT ordered. Gina Vieyra APRN.CNM History of gestational diabe erick in prior , currently 03/16/2021 10/06/2021 Overview: 03/16/21- GDM A2 with previous . Gina Vieyra APRN.CNM Supervision of other high risk pregnancies, firs t trimester 03/16/2021 11/24/2021 Overview: 03/16/21- on 04/01/20. Gina Vieyra APRN.CNM Obesity complicating , first trimester 03/16/2021 11/24/2021 Overview: 03/16/21- BMI- 50.92. Gina Vieyra APRN.CNM documented as of this encounter (statuses as of 12/14/2021) [facility] History of Past illness Narrative* Problem Noted Date Resolved Date control counseling 08/16/2021 022 Overview: 08/16/21 - title 19 papers signed - Miley Khan MD Insulin controlled gestation al diabetes mellitus (GDM) in second trimester 06/21/2021 11/24/2021 Overview: 10/10/21 See updated med list. NPH AM and PM, and Lispro with dinner. Discussed plan of care with MFM given suboptimal control as continuing to increase Lispro, and plan is for twice weekly antepartum testing and delivery 37-39 weeks. SW 06/21/21: started [employer] NPH at night. Niurka Polk MD Obesity in 06/21/2021 11/24/2021 AMA (advanced maternal age) multigravida 35+, second trimester 06/21/2021 11/24/2021 Diet controlled gestational diabetes mellitus (GDM) in first trimester 05/03/2021 06/21/2021 Overview: 05/03/21- 3 hour GTT: All readings elevated. Supplies ordered and wall mirror department supervisor consult. Gina Vieyra APRN.CNM Elevated glucose 04/27/2021 10/06/2021 Overview: 04/27/21- Elevated early GCT. 3 hour GTT ordered. Gina Vieyra APRN.CNM History of gestational diabe erick in prior , currently 03/16/2021 10/06/2021 Overview: 03/16/21- GDM A2 with previous . Gina Vieyra APRN.CNM Supervision of other high risk pregnancies, firs t trimester 03/16/2021 11/24/2021 Overview: 03/16/21- on 04/01/20. Gina Vieyra APRN.CNM Obesity complicating , first trimester 03/16/2021 11/24/2021 Overview: 03/16/21- BMI- 50.92. Gina Vieyra APRN.CNM documented as of this encounter (statuses as of 12/21/2021) [facility] History of Past illness Narrative* Problem Noted Date Resolved Date control counseling 08/16/2021 022 Overview: 08/16/21 - title 19 papers signed - Miley Khan MD Insulin controlled gestation al diabetes mellitus (GDM) in second trimester 06/21/2021 11/24/2021 Overview: 10/10/21 See updated med list. NPH AM and PM, and Lispro with dinner. Discussed plan of care with MFM given suboptimal control as continuing to increase Lispro, and plan is for twice weekly antepartum testing and delivery 37-39 weeks. SW 06/21/21: started [employer] NPH at night. Niurka Polk MD Obesity in 06/21/2021 11/24/2021 AMA (advanced maternal age) multigravida 35+, second trimester 06/21/2021 11/24/2021 Diet controlled gestational diabetes mellitus (GDM) in first trimester 05/03/2021 06/21/2021 Overview: 05/03/21- 3 hour GTT: All readings elevated. Supplies ordered and wall mirror department supervisor consult. Gina Vieyra APRN.CNM Elevated glucose 04/27/2021 10/06/2021 Overview: 04/27/21- Elevated early GCT. 3 hour GTT ordered. Gina Vieyra APRN.CNM History of gestational diabe erick in prior , currently 03/16/2021 10/06/2021 Overview: 03/16/21- GDM A2 with previous . Gina Vieyra APRN.CNM Supervision of other high risk pregnancies, firs t trimester 03/16/2021 11/24/2021 Overview: 03/16/21- on 04/01/20. Gina Vieyra APRN.CNM Obesity complicating , first trimester 03/16/2021 11/24/2021 Overview: 03/16/21- BMI- 50.92. Gina Vieyra APRN.CNM documented as of this encounter (statuses as of 04/25/2022) [facility] History of Past illness Narrative* Problem Noted Date Resolved Date control counseling 08/16/2021 022 Overview: 08/16/21 - title 19 papers signed - Miley Khan MD Insulin controlled gestation al diabetes mellitus (GDM) in second trimester 06/21/2021 11/24/2021 Overview: 10/10/21 See updated med list. NPH AM and PM, and Lispro with dinner. Discussed plan of care with MFM given suboptimal control as continuing to increase Lispro, and plan is for twice weekly antepartum testing and delivery 37-39 weeks. SW 06/21/21: started [employer] NPH at night. Niurka Polk MD Obesity in 06/21/2021 11/24/2021 AMA (advanced maternal age) multigravida 35+, second trimester 06/21/2021 11/24/2021 Diet controlled gestational diabetes mellitus (GDM) in first trimester 05/03/2021 06/21/2021 Overview: 05/03/21- 3 hour GTT: All readings elevated. Supplies ordered and wall mirror department supervisor consult. Gina Vieyra APRN.CNM Elevated glucose 04/27/2021 10/06/2021 Overview: 04/27/21- Elevated early GCT. 3 hour GTT ordered. Gina Vieyra APRN.CNM History of gestational diabe erick in prior , currently 03/16/2021 10/06/2021 Overview: 03/16/21- GDM A2 with previous . Gina Vieyra APRN.CNM Supervision of other high risk pregnancies, firs t trimester 03/16/2021 11/24/2021 Overview: 03/16/21- on 04/01/20. Gina Vieyra APRN.CNM Obesity complicating , first trimester 03/16/2021 11/24/2021 Overview: 03/16/21- BMI- 50.92. Gina Vieyra APRN.CNM documented as of this encounter (statuses as of 05/10/2022) [facility] History of Past illness Narrative* Problem Noted Date Resolved Date control counseling 08/16/2021 022 Overview: 08/16/21 - title 19 papers signed - Miley Khan MD Insulin controlled gestation al diabetes mellitus (GDM) in second trimester 06/21/2021 11/24/2021 Overview: 10/10/21 See updated med list. NPH AM and PM, and Lispro with dinner. Discussed plan of care with MFM given suboptimal control as continuing to increase Lispro, and plan is for twice weekly antepartum testing and delivery 37-39 weeks. SW 06/21/21: started [employer] NPH at night. Niurka Polk MD Obesity in 06/21/2021 11/24/2021 AMA (advanced maternal age) multigravida 35+, second trimester 06/21/2021 11/24/2021 Diet controlled gestational diabetes mellitus (GDM) in first trimester 05/03/2021 06/21/2021 Overview: 05/03/21- 3 hour GTT: All readings elevated. Supplies ordered and wall mirror department supervisor consult. Gina Vieyra APRN.CNM Elevated glucose 04/27/2021 10/06/2021 Overview: 04/27/21- Elevated early GCT. 3 hour GTT ordered. Gina Vieyra APRN.CNM History of gestational diabe erick in prior , currently 03/16/2021 10/06/2021 Overview: 03/16/21- GDM A2 with previous . Gina Vieyra APRN.CNM Supervision of other high risk pregnancies, firs t trimester 03/16/2021 11/24/2021 Overview: 03/16/21- on 04/01/20. Gina Vieyra APRN.CNM Obesity complicating , first trimester 03/16/2021 11/24/2021 Overview: 03/16/21- BMI- 50.92. Gina Veiyra APRN.CNM documented as of this encounter (statuses as of 05/31/2022) [facility] History of Past illness Narrative* Problem Noted Date Resolved Date control counseling 08/16/2021 022 Overview: 08/16/21 - title 19 papers signed - Miley Khan MD Insulin controlled gestation al diabetes mellitus (GDM) in second trimester 06/21/2021 11/24/2021 Overview: 10/10/21 See updated med list. NPH AM and PM, and Lispro with dinner. Discussed plan of care with MFM given suboptimal control as continuing to increase Lispro, and plan is for twice weekly antepartum testing and delivery 37-39 weeks. SW 06/21/21: started [employer] NPH at night. Niurka Polk MD Obesity in 06/21/2021 11/24/2021 AMA (advanced maternal age) multigravida 35+, second trimester 06/21/2021 11/24/2021 Diet controlled gestational diabetes mellitus (GDM) in first trimester 05/03/2021 06/21/2021 Overview: 05/03/21- 3 hour GTT: All readings elevated. Supplies ordered and wall mirror department supervisor consult. Gina Vieyra APRN.CNM Elevated glucose 04/27/2021 10/06/2021 Overview: 04/27/21- Elevated early GCT. 3 hour GTT ordered. Gina Vieyra APRN.CNM History of gestational diabe erick in prior , currently 03/16/2021 10/06/2021 Overview: 03/16/21- GDM A2 with previous . Gina Vieyra APRN.CNM Supervision of other high risk pregnancies, firs t trimester 03/16/2021 11/24/2021 Overview: 03/16/21- on 04/01/20. Gina Vieyra APRN.CNM Obesity complicating , first trimester 03/16/2021 11/24/2021 Overview: 03/16/21- BMI- 50.92. Gina Vieyra APRN.CNM documented as of this encounter (statuses as of 06/03/2022) [facility] History of Past illness Narrative* Problem Noted Date Resolved Date control counseling 08/16/2021 022 Overview: 08/16/21 - title 19 papers signed - Miley Khan MD Insulin controlled gestation al diabetes mellitus (GDM) in second trimester 06/21/2021 11/24/2021 Overview: 10/10/21 See updated med list. NPH AM and PM, and Lispro with dinner. Discussed plan of care with MFM given suboptimal control as continuing to increase Lispro, and plan is for twice weekly antepartum testing and delivery 37-39 weeks. SW 06/21/21: started [employer] NPH at night. Niurka Polk MD Obesity in 06/21/2021 11/24/2021 AMA (advanced maternal age) multigravida 35+, second trimester 06/21/2021 11/24/2021 Diet controlled gestational diabetes mellitus (GDM) in first trimester 05/03/2021 06/21/2021 Overview: 05/03/21- 3 hour GTT: All readings elevated. Supplies ordered and wall mirror department supervisor consult. Gina Vieyra APRN.CNM Elevated glucose 04/27/2021 10/06/2021 Overview: 04/27/21- Elevated early GCT. 3 hour GTT ordered. Gina Vieyra APRN.CNM History of gestational diabe erick in prior , currently 03/16/2021 10/06/2021 Overview: 03/16/21- GDM A2 with previous . Gina Vieyra APRN.CNM Supervision of other high risk pregnancies, firs t trimester 03/16/2021 11/24/2021 Overview: 03/16/21- on 04/01/20. Gina Vieyra APRN.CNM Obesity complicating , first trimester 03/16/2021 11/24/2021 Overview: 03/16/21- BMI- 50.92. Gina Vieyra APRN.CNM documented as of this encounter (statuses as of 06/14/2022) [facility] History of Past illness Narrative* Problem Noted Date Resolved Date control counseling 08/16/2021 022 Overview: 08/16/21 - title 19 papers signed - Miley Khan MD Insulin controlled gestation al diabetes mellitus (GDM) in second trimester 06/21/2021 11/24/2021 Overview: 10/10/21 See updated med list. NPH AM and PM, and Lispro with dinner. Discussed plan of care with MFM given suboptimal control as continuing to increase Lispro, and plan is for twice weekly antepartum testing and delivery 37-39 weeks. SW 06/21/21: started [employer] NPH at night. Niurka Polk MD Obesity in 06/21/2021 11/24/2021 AMA (advanced maternal age) multigravida 35+, second trimester 06/21/2021 11/24/2021 Diet controlled gestational diabetes mellitus (GDM) in first trimester 05/03/2021 06/21/2021 Overview: 05/03/21- 3 hour GTT: All readings elevated. Supplies ordered and wall mirror department supervisor consult. Gina Vieyra APRN.CNM Elevated glucose 04/27/2021 10/06/2021 Overview: 04/27/21- Elevated early GCT. 3 hour GTT ordered. Gina Vieyra APRN.CNM History of gestational diabe erick in prior , currently 03/16/2021 10/06/2021 Overview: 03/16/21- GDM A2 with previous . Gina Vieyra APRN.CNM Supervision of other high risk pregnancies, firs t trimester 03/16/2021 11/24/2021 Overview: 03/16/21- on 04/01/20. Gina Vieyra APRN.CNM Obesity complicating , first trimester 03/16/2021 11/24/2021 Overview: 03/16/21- BMI- 50.92. Gina Vieyra APRN.CNM documented as of this encounter (statuses as of 06/29/2022) [facility] History of Past illness Narrative* Problem Noted Date Resolved Date control counseling 08/16/2021 022 Overview: 08/16/21 - title 19 papers signed - Miley Khan MD Insulin controlled gestation al diabetes mellitus (GDM) in second trimester 06/21/2021 11/24/2021 Overview: 10/10/21 See updated med list. NPH AM and PM, and Lispro with dinner. Discussed plan of care with MFM given suboptimal control as continuing to increase Lispro, and plan is for twice weekly antepartum testing and delivery 37-39 weeks. SW 06/21/21: started [employer] NPH at night. Niurka Polk MD Obesity in 06/21/2021 11/24/2021 AMA (advanced maternal age) multigravida 35+, second trimester 06/21/2021 11/24/2021 Diet controlled gestational diabetes mellitus (GDM) in first trimester 05/03/2021 06/21/2021 Overview: 05/03/21- 3 hour GTT: All readings elevated. Supplies ordered and wall mirror department supervisor consult. Gina Vieyra APRN.CNM Elevated glucose 04/27/2021 10/06/2021 Overview: 04/27/21- Elevated early GCT. 3 hour GTT ordered. Gina Vieyra APRN.CNM History of gestational diabe erick in prior , currently 03/16/2021 10/06/2021 Overview: 03/16/21- GDM A2 with previous . Gina Vieyra APRN.CNM Supervision of other high risk pregnancies, firs t trimester 03/16/2021 11/24/2021 Overview: 03/16/21- on 04/01/20. Gina Vieyra APRN.CNM Obesity complicating , first trimester 03/16/2021 11/24/2021 Overview: 03/16/21- BMI- 50.92. Gina Vieyra APRN.CNM documented as of this encounter (statuses as of 07/03/2022) [facility] History of Past illness Narrative* Problem Noted Date Resolved Date control counseling 08/16/2021 022 Overview: 08/16/21 - title 19 papers signed - Miley Kahn MD Insulin controlled gestation al diabetes mellitus (GDM) in second trimester 06/21/2021 11/24/2021 Overview: 10/10/21 See updated med list. NPH AM and PM, and Lispro with dinner. Discussed plan of care with MFM given suboptimal control as continuing to increase Lispro, and plan is for twice weekly antepartum testing and delivery 37-39 weeks. SW 06/21/21: started [employer] NPH at night. Niurka Polk MD Obesity in 06/21/2021 11/24/2021 AMA (advanced maternal age) multigravida 35+, second trimester 06/21/2021 11/24/2021 Diet controlled gestational diabetes mellitus (GDM) in first trimester 05/03/2021 06/21/2021 Overview: 05/03/21- 3 hour GTT: All readings elevated. Supplies ordered and wall mirror department supervisor consult. Gina Vieyra APRN.CNM Elevated glucose 04/27/2021 10/06/2021 Overview: 04/27/21- Elevated early GCT. 3 hour GTT ordered. Gina Vieyra APRN.CNM History of gestational diabe erick in prior , currently 03/16/2021 10/06/2021 Overview: 03/16/21- GDM A2 with previous . Gina Vieyra APRN.CNM Supervision of other high risk pregnancies, firs t trimester 03/16/2021 11/24/2021 Overview: 03/16/21- on 04/01/20. Gina Vieyra APRN.CNM Obesity complicating , first trimester 03/16/2021 11/24/2021 Overview: 03/16/21- BMI- 50.92. Gina Vieyra APRN.CNM documented as of this encounter (statuses as of 08/09/2022) [facility] of Past illness Narrative* Problem Noted Date Resolved Date control counseling 08/16/2021 022 Overview: 08/16/21 - title 19 papers signed - Miley Khan MD Insulin controlled gestation al diabetes mellitus (GDM) in second trimester 06/21/2021 11/24/2021 Overview: 10/10/21 See updated med list. NPH AM and PM, and Lispro with dinner. Discussed plan of care with MFM given suboptimal control as continuing to increase Lispro, and plan is for twice weekly antepartum testing and delivery 37-39 weeks. SW 06/21/21: started [employer] NPH at night. Niurka Polk MD Obesity in 06/21/2021 11/24/2021 AMA (advanced maternal age) multigravida 35+, second trimester 06/21/2021 11/24/2021 Diet controlled gestational diabetes mellitus (GDM) in first trimester 05/03/2021 06/21/2021 Overview: 05/03/21- 3 hour GTT: All readings elevated. Supplies ordered and wall mirror department supervisor consult. Gina Vieyra APRN.CNM Elevated glucose 04/27/2021 10/06/2021 Overview: 04/27/21- Elevated early GCT. 3 hour GTT ordered. Gina Vieyra APRN.CNM History of gestational diabe erick in prior , currently 03/16/2021 10/06/2021 Overview: 03/16/21- GDM A2 with previous . Gina Vieyra APRN.CNM Supervision of other high risk pregnancies, firs t trimester 03/16/2021 11/24/2021 Overview: 03/16/21- on 04/01/20. Gina Vieyra APRN.CNM Obesity complicating , first trimester 03/16/2021 11/24/2021 Overview: 03/16/21- BMI- 50.92. Gina Vieyra APRN.CNM documented as of this encounter (statuses as of 09/11/2022) [facility] of Past illness Narrative* Problem Noted Date Resolved Date control counseling 08/16/2021 022 Overview: 08/16/21 - title 19 papers signed - Miley Khan MD Insulin controlled gestation al diabetes mellitus (GDM) in second trimester 06/21/2021 11/24/2021 Overview: 10/10/21 See updated med list. NPH AM and PM, and Lispro with dinner. Discussed plan of care with MFM given suboptimal control as continuing to increase Lispro, and plan is for twice weekly antepartum testing and delivery 37-39 weeks. SW 06/21/21: started [employer] NPH at night. Niurka Polk MD Obesity in 06/21/2021 11/24/2021 AMA (advanced maternal age) multigravida 35+, second trimester 06/21/2021 11/24/2021 Diet controlled gestational diabetes mellitus (GDM) in first trimester 05/03/2021 06/21/2021 Overview: 05/03/21- 3 hour GTT: All readings elevated. Supplies ordered and wall mirror department supervisor consult. Gina Vieyra APRN.CNM Elevated glucose 04/27/2021 10/06/2021 Overview: 04/27/21- Elevated early GCT. 3 hour GTT ordered. Gina Vieyra APRN.CNM History of gestational diabe erick in prior , currently 03/16/2021 10/06/2021 Overview: 03/16/21- GDM A2 with previous . Gina Vieyra APRN.CNM Supervision of other high risk pregnancies, firs t trimester 03/16/2021 11/24/2021 Overview: 03/16/21- on 04/01/20. Gina Vieyra APRN.CNM Obesity complicating , first trimester 03/16/2021 11/24/2021 Overview: 03/16/21- BMI- 50.92. Gina Vieyra APRN.CNM documented as of this encounter (statuses as of 09/11/2022) [facility] of Past illness Narrative* Problem Noted Date Resolved Date control counseling 08/16/2021 022 Overview: 08/16/21 - title 19 papers signed - Miley Khan MD Insulin controlled gestation al diabetes mellitus (GDM) in second trimester 06/21/2021 11/24/2021 Overview: 10/10/21 See updated med list. NPH AM and PM, and Lispro with dinner. Discussed plan of care with MFM given suboptimal control as continuing to increase Lispro, and plan is for twice weekly antepartum testing and delivery 37-39 weeks. SW 06/21/21: started [employer] NPH at night. Niurka Polk MD Obesity in 06/21/2021 11/24/2021 AMA (advanced maternal age) multigravida 35+, second trimester 06/21/2021 11/24/2021 Diet controlled gestational diabetes mellitus (GDM) in first trimester 05/03/2021 06/21/2021 Overview: 05/03/21- 3 hour GTT: All readings elevated. Supplies ordered and wall mirror department supervisor consult. Gina Vieyra APRN.CNM Elevated glucose 04/27/2021 10/06/2021 Overview: 04/27/21- Elevated early GCT. 3 hour GTT ordered. Gina Vieyra APRN.CNM History of gestational diabe erick in prior , currently 03/16/2021 10/06/2021 Overview: 03/16/21- GDM A2 with previous . Gina Vieyra APRN.CNM Supervision of other high risk pregnancies, firs t trimester 03/16/2021 11/24/2021 Overview: 03/16/21- on 04/01/20. Gina Vieyra APRN.CNM Obesity complicating , first trimester 03/16/2021 11/24/2021 Overview: 03/16/21- BMI- 50.92. Gina Vieyra APRN.CNM documented as of this encounter (statuses as of 10/16/2022) [facility] of Past illness Narrative* Problem Noted Date Resolved Date control counseling 08/16/2021 022 Overview: 08/16/21 - title 19 papers signed - Miley Khan MD Insulin controlled gestation al diabetes mellitus (GDM) in second trimester 06/21/2021 11/24/2021 Overview: 10/10/21 See updated med list. NPH AM and PM, and Lispro with dinner. Discussed plan of care with MFM given suboptimal control as continuing to increase Lispro, and plan is for twice weekly antepartum testing and delivery 37-39 weeks. SW 06/21/21: started [employer] NPH at night. Niurka Polk MD Obesity in 06/21/2021 11/24/2021 AMA (advanced maternal age) multigravida 35+, second trimester 06/21/2021 11/24/2021 Diet controlled gestational diabetes mellitus (GDM) in first trimester 05/03/2021 06/21/2021 Overview: 05/03/21- 3 hour GTT: All readings elevated. Supplies ordered and wall mirror department supervisor consult. Gina Vieyra APRN.CNM Elevated glucose 04/27/2021 10/06/2021 Overview: 04/27/21- Elevated early GCT. 3 hour GTT ordered. Gina Vieyra APRN.CNM History of gestational diabe erick in prior , currently 03/16/2021 10/06/2021 Overview: 03/16/21- GDM A2 with previous . Gina Vieyra APRN.CNM Supervision of other high risk pregnancies, firs t trimester 03/16/2021 11/24/2021 Overview: 03/16/21- on 04/01/20. Gina Vieyra APRN.CNM Obesity complicating , first trimester 03/16/2021 11/24/2021 Overview: 03/16/21- BMI- 50.92. Gina Vieyra APRN.CNM documented as of this encounter (statuses as of 10/19/2022) [facility] of Past illness Narrative* Problem Noted Date Diagnosed Date Resolved Date control counseling 08/16/2021 Overview: 08/16/21 - title 19 papers signed - Miley Khan MD Insulin controlled gestation al diabetes mellitus (GDM) in second trimester 06/21/202111/24 Overview: 10/10/21 See updated med list. NPH AM and PM, and Lispro with dinner. Discussed plan of care with MFM given suboptimal control as continuing to increase Lispro, and plan is for twice weekly antepartum testing and delivery 37-39 weeks. SW 06/21/21: started [employer] NPH at night. Niurka Polk MD Obesity in 06/21/2021 022 AMA (advanced maternal age) multigravida 35+, second trimester 06/21/2021 11/24/2021 Diet controlled gestational diabetes mellitus (GDM) in first trimester 05/03/2021 06/21/2021 Overview: 05/03/21- 3 hour GTT: All readings elevated. Supplies ordered and wall mirror department supervisor consult. Gina Vieyra APRN.CNM Elevated glucose 04/27/2021 10/06/2021 Overview: 04/27/21- Elevated early GCT. 3 hour GTT ordered. Gina Vieyra APRN.CNM History of gestational diabe erick in prior , currently 03/16/2021 10/06/2021 Overview: 03/16/21- GDM A2 with previous . Gina Vieyra APRN.CNM Supervision of other high ri sk pregnancies, first trimester 03/16/2021 11/24/2021 Overview: 03/16/21- on 04/01/20. Gina Vieyra APRN.CNM Obesity complicating pregnan cy, first trimester 03/16/2021 11/24/2021 Overview: 03/16/21- BMI- 50.92. Gina Vieyra APRN.CNM documented as of this encounter (statuses as of 02/07/2023) [facility] of Past illness Narrative* Problem Noted Date Diagnosed Date Resolved Date control counseling 08/16/2021 Overview: 08/16/21 - title 19 papers signed - Miley Khan MD Insulin controlled gestation al diabetes mellitus (GDM) in second trimester 06/21/202111/24 Overview: 10/10/21 See updated med list. NPH AM and PM, and Lispro with dinner. Discussed plan of care with MFM given suboptimal control as continuing to increase Lispro, and plan is for twice weekly antepartum testing and delivery 37-39 weeks. SW 06/21/21: started [employer] NPH at night. Niurka Polk MD Obesity in 06/21/2021 022 AMA (advanced maternal age) multigravida 35+, second trimester 06/21/2021 11/24/2021 Diet controlled gestational diabetes mellitus (GDM) in first trimester 05/03/2021 06/21/2021 Overview: 05/03/21- 3 hour GTT: All readings elevated. Supplies ordered and wall mirror department supervisor consult. Gina Vieyra APRN.CNM Elevated glucose 04/27/2021 10/06/2021 Overview: 04/27/21- Elevated early GCT. 3 hour GTT ordered. Gina Vieyra APRN.CNM History of gestational diabe erick in prior , currently 03/16/2021 10/06/2021 Overview: 03/16/21- GDM A2 with previous . Gina Vieyra APRN.CNM Supervision of other high ri sk pregnancies, first trimester 03/16/2021 11/24/2021 Overview: 03/16/21- on 04/01/20. Gina Vieyra APRN.CNM Obesity complicating pregnan cy, first trimester 03/16/2021 11/24/2021 Overview: 03/16/21- BMI- 50.92. Gina Vieyra APRN.CNM documented as of this encounter (statuses as of 02/08/2023) [facility] of Past illness Narrative* Problem Noted Date Diagnosed Date Resolved Date control counseling 08/16/2021 Overview: 08/16/21 - title 19 papers signed - Miley Khan MD Insulin controlled gestation al diabetes mellitus (GDM) in second trimester 06/21/202111/24 Overview: 10/10/21 See updated med list. NPH AM and PM, and Lispro with dinner. Discussed plan of care with MFM given suboptimal control as continuing to increase Lispro, and plan is for twice weekly antepartum testing and delivery 37-39 weeks. SW 06/21/21: started [employer] NPH at night. Niurka Polk MD Obesity in 06/21/2021 022 AMA (advanced maternal age) multigravida 35+, second trimester 06/21/2021 11/24/2021 Diet controlled gestational diabetes mellitus (GDM) in first trimester 05/03/2021 06/21/2021 Overview: 05/03/21- 3 hour GTT: All readings elevated. Supplies ordered and wall mirror department supervisor consult. Gina Vieyra APRN.CNM Elevated glucose 04/27/2021 10/06/2021 Overview: 04/27/21- Elevated early GCT. 3 hour GTT ordered. Gina Vieyra APRN.CNM History of gestational diabe erick in prior , currently 03/16/2021 10/06/2021 Overview: 03/16/21- GDM A2 with previous . Gina Vieyra APRN.CNM Supervision of other high ri sk pregnancies, first trimester 03/16/2021 11/24/2021 Overview: 03/16/21- on 04/01/20. Gina Vieyra APRN.CNM Obesity complicating pregnan cy, first trimester 03/16/2021 11/24/2021 Overview: 03/16/21- BMI- 50.92. Gina Vieyra APRN.CNM documented as of this encounter (statuses as of 04/23/2023) [facility] Miscellaneous Notes* Telephone Encounter - Tanika Honeycutt MD - 06/24/2021 2:35 PM EST so I don't see any NPH insulin that is on her formulary. Not sure. Can send in a vial and she can draw it up, they can try to get pens prior authorized or she will have to pay for them. Not sure whatelse to do. If she does vials, will have to have needles and syringes to draw it up as well. Tanika Honeycutt MD * Telephone Encounter - Randee Arias RN - 06/24/2021 2:12 PM EST Request received from pharmacy for alternative medication from [facility] NPH insulin kwikpen as it is not on formulary. Can you review to see if any of the alternatives are acceptable. (See pended med and hit replace button) Randee Arias RN [facility] Misc[facility] Notes* Telephone Encounter - Randee Arias RN - 06/16/2021 1:33 PM EST Patient has appointment with Dr. Khan on 06/21/21. Randee Juana RN * Telephone Encounter - Saumya Copeland RN - 06/15/2021 4:27 PM EST 18w4d Patient was scheduled to see KJ to discuss GDM on 06/07, but cancelled. See other mychart message. [facility] History of Past illness Narrative* Problem Noted Date Resolved Date Diet controlled gestational diabetes mellitus (GDM) in first trimester 05/03/2021 06/21/2021 Overview: 05/03/21- 3 hour GTT: All readings elevated. Supplies ordered and wall mirror department supervisor consult. Gina Vieyra APRN.CNM documented as of this encounter (statuses as of 09/08/2021) [facility] Past illness Narrative* Problem Noted Date Resolved Date Diet controlled gestational diabetes mellitus (GDM) in first trimester 05/03/2021 06/21/2021 Overview: 05/03/21- 3 hour GTT: All readings elevated. Supplies ordered and wall mirror department supervisor consult. Gina Vieyra APRN.CNM documented as of this encounter (statuses as of 09/08/2021) [facility] of Past illness Narrative* Problem Noted Date Resolved Date Diet controlled gestational diabetes mellitus (GDM) in first trimester 05/03/2021 06/21/2021 Overview: 05/03/21- 3 hour GTT: All readings elevated. Supplies ordered and wall mirror department supervisor consult. Gina Vieyra APRN.CNM documented as of this encounter (statuses as of 09/09/2021) [place] [id number] History of Past illness Narrative* Problem Noted Date Resolved Date Diet controlled gestational diabetes mellitus (GDM) in first trimester 05/03/2021 06/21/2021 Overview: 05/03/21- 3 hour GTT: All readings elevated. Supplies ordered and wall mirror department supervisor consult. Gina Vieyra APRN.CNM documented as of this encounter (statuses as of 09/21/2021) [facility] Past illness Narrative* Problem Noted Date Resolved Date Diet controlled gestational diabetes mellitus (GDM) in first trimester 05/03/2021 06/21/2021 Overview: 05/03/21- 3 hour GTT: All readings elevated. Supplies ordered and wall mirror department supervisor consult. Gina Vieyra APRN.CNM documented as of this encounter (statuses as of 09/21/2021) [facility] of Past illness Narrative* Problem Noted Date Resolved Date Diet controlled gestational diabetes mellitus (GDM) in first trimester 05/03/2021 06/21/2021 Overview: 05/03/21- 3 hour GTT: All readings elevated. Supplies ordered and wall mirror department supervisor consult. Gina Vieyra APRN.CNM documented as of this encounter (statuses as of 09/21/2021) [facility] of Past illness Narrative* Problem Noted Date Resolved Date Diet controlled gestational diabetes mellitus (GDM) in first trimester 05/03/2021 06/21/2021 Overview: 05/03/21- 3 hour GTT: All readings elevated. Supplies ordered and wall mirror department supervisor consult. Gina Vieyra APRN.CNM documented as of this encounter (statuses as of 09/26/2021) [facility] of Past illness Narrative* Problem Noted Date Resolved Date Diet controlled gestational diabetes mellitus (GDM) in first trimester 05/03/2021 06/21/2021 Overview: 05/03/21- 3 hour GTT: All readings elevated. Supplies ordered and wall mirror department supervisor consult. Gina Vieyra APRN.CNM documented as of this encounter (statuses as of 09/29/2021) [facility] Past illness Narrative* Problem Noted Date Resolved Date Diet controlled gestational diabetes mellitus (GDM) in first trimester 05/03/2021 06/21/2021 Overview: 05/03/21- 3 hour GTT: All readings elevated. Supplies ordered and wall mirror department supervisor consult. Gina Vieyra APRN.CNM documented as of this encounter (statuses as of 10/03/2021) [facility] of Past illness Narrative* Problem Noted Date Resolved Date Diet controlled gestational diabetes mellitus (GDM) in first trimester 05/03/2021 06/21/2021 Overview: 05/03/21- 3 hour GTT: All readings elevated. Supplies ordered and wall mirror department supervisor consult. Gina Vieyra APRN.CNM Elevated glucose 04/27/2021 10/06/2021 Overview: 04/27/21- Elevated early GCT. 3 hour GTT ordered. Gina Vieyra APRN.CNM History of gestational diabe erick in prior , currently 03/16/2021 10/06/2021 Overview: 03/16/21- GDM A2 with previous . Gina Vieyra APRN.CNM documented as of this encounter (statuses as of 10/06/2021) [facility] Narrative* Problem Noted Date Resolved Date Diet controlled gestational diabetes mellitus (GDM) in first trimester 05/03/2021 06/21/2021 Overview: 05/03/21- 3 hour GTT: All readings elevated. Supplies ordered and wall mirror department supervisor consult. Gina Vieyra APRN.CNM Elevated glucose 04/27/2021 10/06/2021 Overview: 04/27/21- Elevated early GCT. 3 hour GTT ordered. Gina Vieyra APRN.CNM History of gestational diabe erick in prior , currently 03/16/2021 10/06/2021 Overview: 03/16/21- GDM A2 with previous . Gina Vieyra APRN.CNM documented as of this encounter (statuses as of 10/10/2021) [facility] Narrative* Problem Noted Date Resolved Date Diet controlled gestational diabetes mellitus (GDM) in first trimester 05/03/2021 06/21/2021 Overview: 05/03/21- 3 hour GTT: All readings elevated. Supplies ordered and wall mirror department supervisor consult. Gina Vieyra APRN.CNM Elevated glucose 04/27/2021 10/06/2021 Overview: 04/27/21- Elevated early GCT. 3 hour GTT ordered. Gina Vieyra APRN.CNM History of gestational diabe erick in prior , currently 03/16/2021 10/06/2021 Overview: 03/16/21- GDM A2 with previous . Gina Vieyra APRN.CNM documented as of this encounter (statuses as of 10/10/2021) [facility] Narrative* Problem Noted Date Resolved Date Diet controlled gestational diabetes mellitus (GDM) in first trimester 05/03/2021 06/21/2021 Overview: 05/03/21- 3 hour GTT: All readings elevated. Supplies ordered and wall mirror department supervisor consult. Gina Vieyra APRN.CNM Elevated glucose 04/27/2021 10/06/2021 Overview: 04/27/21- Elevated early GCT. 3 hour GTT ordered. Gina Vieyra APRN.CNM History of gestational diabe erick in prior , currently 03/16/2021 10/06/2021 Overview: 03/16/21- GDM A2 with previous . Gina Vieyra APRN.CNM documented as of this encounter (statuses as of 10/10/2021) [facility] Narrative* Problem Noted Date Resolved Date Diet controlled gestational diabetes mellitus (GDM) in first trimester 05/03/2021 06/21/2021 Overview: 05/03/21- 3 hour GTT: All readings elevated. Supplies ordered and wall mirror department supervisor consult. Gina Vieyra APRN.CNM Elevated glucose 04/27/2021 10/06/2021 Overview: 04/27/21- Elevated early GCT. 3 hour GTT ordered. Gina Vieyra APRN.CNM History of gestational diabe erick in prior , currently 03/16/2021 10/06/2021 Overview: 03/16/21- GDM A2 with previous . Gina Vieyra APRN.CNM documented as of this encounter (statuses as of 10/13/2021) [facility] Narrative* Problem Noted Date Resolved Date Diet controlled gestational diabetes mellitus (GDM) in first trimester 05/03/2021 06/21/2021 Overview: 05/03/21- 3 hour GTT: All readings elevated. Supplies ordered and wall mirror department supervisor consult. Gina Vieyra APRN.CNM Elevated glucose 04/27/2021 10/06/2021 Overview: 04/27/21- Elevated early GCT. 3 hour GTT ordered. Gina Vieyra APRN.CNM History of gestational diabe erick in prior , currently 03/16/2021 10/06/2021 Overview: 03/16/21- GDM A2 with previous . Gina Vieyra APRN.CNM documented as of this encounter (statuses as of 10/13/2021) [facility] Narrative* Problem Noted Date Resolved Date Diet controlled gestational diabetes mellitus (GDM) in first trimester 05/03/2021 06/21/2021 Overview: 05/03/21- 3 hour GTT: All readings elevated. Supplies ordered and wall mirror department supervisor consult. Gina Vieyra APRN.CNM Elevated glucose 04/27/2021 10/06/2021 Overview: 04/27/21- Elevated early GCT. 3 hour GTT ordered. Gina Vieyra APRN.CNM History of gestational diabe erick in prior , currently 03/16/2021 10/06/2021 Overview: 03/16/21- GDM A2 with previous . Gina Vieyra APRN.CNM documented as of this encounter (statuses as of 10/17/2021) [facility] Narrative* Problem Noted Date Resolved Date Diet controlled gestational diabetes mellitus (GDM) in first trimester 05/03/2021 06/21/2021 Overview: 05/03/21- 3 hour GTT: All readings elevated. Supplies ordered and wall mirror department supervisor consult. Gina Vieyra APRN.CNM Elevated glucose 04/27/2021 10/06/2021 Overview: 04/27/21- Elevated early GCT. 3 hour GTT ordered. Gina Vieyra APRN.CNM History of gestational diabe erick in prior , currently 03/16/2021 10/06/2021 Overview: 03/16/21- GDM A2 with previous . Gina Vieyra APRN.CNM documented as of this encounter (statuses as of 10/17/2021) [facility] Narrative* Problem Noted Date Resolved Date Diet controlled gestational diabetes mellitus (GDM) in first trimester 05/03/2021 06/21/2021 Overview: 05/03/21- 3 hour GTT: All readings elevated. Supplies ordered and wall mirror department supervisor consult. Gina Vieyra APRN.CNM Elevated glucose 04/27/2021 10/06/2021 Overview: 04/27/21- Elevated early GCT. 3 hour GTT ordered. Gina Vieyra APRN.CNM History of gestational diabe erick in prior , currently 03/16/2021 10/06/2021 Overview: 03/16/21- GDM A2 with previous . Gina Vieyra APRN.CNM documented as of this encounter (statuses as of 10/20/2021) [facility] Narrative* Problem Noted Date Resolved Date Diet controlled gestational diabetes mellitus (GDM) in first trimester 05/03/2021 06/21/2021 Overview: 05/03/21- 3 hour GTT: All readings elevated. Supplies ordered and wall mirror department supervisor consult. Gina Vieyra APRN.CNM Elevated glucose 04/27/2021 10/06/2021 Overview: 04/27/21- Elevated early GCT. 3 hour GTT ordered. Gina Vieyra APRN.CNM History of gestational diabe erick in prior , currently 03/16/2021 10/06/2021 Overview: 03/16/21- GDM A2 with previous . Gina Vieyra APRN.CNM documented as of this encounter (statuses as of 10/24/2021) [facility] N[facility]* Problem Noted Date Resolved Date Diet controlled gestational diabetes mellitus (GDM) in first trimester 05/03/2021 06/21/2021 Overview: 05/03/21- 3 hour GTT: All readings elevated. Supplies ordered and wall mirror department supervisor consult. Gina Vieyra APRN.CNM Elevated glucose 04/27/2021 10/06/2021 Overview: 04/27/21- Elevated early GCT. 3 hour GTT ordered. Gina Vieyra APRN.CNM History of gestational diabe erick in prior , currently 03/16/2021 10/06/2021 Overview: 03/16/21- GDM A2 with previous . Gina Veiyra APRN.CNM documented as of this encounter (statuses as of 10/24/2021) [facility]* Problem Noted Date Resolved Date Diet controlled gestational diabetes mellitus (GDM) in first trimester 05/03/2021 06/21/2021 Overview: 05/03/21- 3 hour GTT: All readings elevated. Supplies ordered and wall mirror department supervisor consult. Gina Vieyra APRN.CNM Elevated glucose 04/27/2021 10/06/2021 Overview: 04/27/21- Elevated early GCT. 3 hour GTT ordered. Gina Vieyra APRN.CNM History of gestational diabe erick in prior , currently 03/16/2021 10/06/2021 Overview: 03/16/21- GDM A2 with previous . Gina Vieyra APRN.CNM documented as of this encounter (statuses as of 10/27/2021) [facility] N[facility]* Problem Noted Date Resolved Date Diet controlled gestational diabetes mellitus (GDM) in first trimester 05/03/2021 06/21/2021 Overview: 05/03/21- 3 hour GTT: All readings elevated. Supplies ordered and wall mirror department supervisor consult. Gina Vieyra APRN.CNM Elevated glucose 04/27/2021 10/06/2021 Overview: 04/27/21- Elevated early GCT. 3 hour GTT ordered. Gina Vieyra APRN.CNM History of gestational diabe erick in prior , currently 03/16/2021 10/06/2021 Overview: 03/16/21- GDM A2 with previous . Gina Vieyra APRN.CNM documented as of this encounter (statuses as of 10/28/2021) [facility]* Problem Noted Date Resolved Date Diet controlled gestational diabetes mellitus (GDM) in first trimester 05/03/2021 06/21/2021 Overview: 05/03/21- 3 hour GTT: All readings elevated. Supplies ordered and wall mirror department supervisor consult. Gina Vieyra APRN.CNM Elevated glucose 04/27/2021 10/06/2021 Overview: 04/27/21- Elevated early GCT. 3 hour GTT ordered. Gina Vieyra APRN.CNM History of gestational diabe erick in prior , currently 03/16/2021 10/06/2021 Overview: 03/16/21- GDM A2 with previous . Gina Vieyra APRN.CNM documented as of this encounter (statuses as of 10/31/2021) [facility] N[facility]* Problem Noted Date Resolved Date Diet controlled gestational diabetes mellitus (GDM) in first trimester 05/03/2021 06/21/2021 Overview: 05/03/21- 3 hour GTT: All readings elevated. Supplies ordered and wall mirror department supervisor consult. Gina Vieyra APRN.CNM Elevated glucose 04/27/2021 10/06/2021 Overview: 04/27/21- Elevated early GCT. 3 hour GTT ordered. Gina Vieyra APRN.CNM History of gestational diabe erick in prior , currently 03/16/2021 10/06/2021 Overview: 03/16/21- GDM A2 with previous . Gina Vieyra APRN.CNM documented as of this encounter (statuses as of 11/04/2021) [facility]* Problem Noted Date Resolved Date Diet controlled gestational diabetes mellitus (GDM) in first trimester 05/03/2021 06/21/2021 Overview: 05/03/21- 3 hour GTT: All readings elevated. Supplies ordered and wall mirror department supervisor consult. Gina Vieyra APRN.CNM Elevated glucose 04/27/2021 10/06/2021 Overview: 04/27/21- Elevated early GCT. 3 hour GTT ordered. Gina Vieyra APRN.CNM History of gestational diabe erick in prior , currently 03/16/2021 10/06/2021 Overview: 03/16/21- GDM A2 with previous . Gina Vieyra APRN.CNM documented as of this encounter (statuses as of 11/10/2021) [facility]* Problem Noted Date Resolved Date Diet controlled gestational diabetes mellitus (GDM) in first trimester 05/03/2021 06/21/2021 Overview: 05/03/21- 3 hour GTT: All readings elevated. Supplies ordered and wall mirror department supervisor consult. Gina Vieyra APRN.CNM Elevated glucose 04/27/2021 10/06/2021 Overview: 04/27/21- Elevated early GCT. 3 hour GTT ordered. Gina Vieyra APRN.CNM History of gestational diabe erick in prior , currently 03/16/2021 10/06/2021 Overview: 03/16/21- GDM A2 with previous . Gina Vieyra APRN.CNM documented as of this encounter (statuses as of 11/14/2021) [facility] Diagnosis 30 weeks gestation of - Primary state, incidental Insulin controlled gestational diabetes mellitus (GDM) in third trimester High-risk in third trimester Insulin controlled gestational diabetes mellitus (GDM) in second trimester documented in this encounter [facility] note* Diagnosis Gestational diabetes mellitus (GDM) requiring insulin- Primary 32 weeks gestation of state, incidental documented in this encounter [facility] note* Diagnosis 32 weeks gestation of - Primary state, incidental Insulin controlled gestational diabetes mellitus (GDM) in third trimester High-risk in third trimester Obesity complicating , third trimester [facility] Diagnosis Obesity complicating , third trimester- Primary GDM, class A2 Abnormal maternal glucose tolerance, complicating , childbirth, or the puerperium, unspecified as to episode of care documented in this encounter [facility] note* Diagnosis High-risk in third trimester- Primary Insulin controlled gestational diabetes mellitus (GDM) in third trimester 33 weeks gestation of state, incidental Insulin controlled gestational diabetes mellitus (GDM) in second trimester [facility] Diagnosis Insulin controlled gestational diabetes mellitus (GDM) in third trimester- Primary High-risk in third trimester Obesity complicating , third trimester 34 weeks gestation of state, incidental [facility]* Diagnosis Insulin controlled gestational diabetes mellitus (GDM) in third trimester- Primary High-risk in third trimester 34 weeks gestation of state, incidental [facility]* Diagnosis Insulin controlled gestational diabetes mellitus (GDM) in third trimester- Primary High-risk in third trimester Obesity complicating , third trimester 35 weeks gestation of state, incidental [facility]* Diagnosis 35 weeks gestation of - Primary state, incidental Supervision of high risk in third trimester Unspecified high-risk GDM, class A2 Abnormal maternal glucose tolerance, complicating , childbirth, or the puerperium, unspecified as to episode of care Obesity complicating , third trimester Multigravida of advanced maternal age in third trimester documented [facility]* Diagnosis Insulin controlled gestational diabetes mellitus (GDM) in second trimester Multigravida of advanced maternal age in third trimester Obesity complicating , third trimester Supervision of high risk in third trimester Unspecified high-risk [facility]* Diagnosis Insulin controlled gestational diabetes mellitus (GDM) in third trimester- Primary High-risk in third trimester Obesity complicating , third trimester 36 weeks gestation of state, incidental documented [facility]* Diagnosis 36 weeks gestation of - Primary state, incidental Insulin controlled gestational diabetes mellitus in third trimester Multigravida of advanced maternal age in third trimester Supervision of high risk in third trimester Unspecified high-risk [facility]* Diagnosis High-risk in third trimester- Primary Insulin controlled gestational diabetes mellitus (GDM) in second trimester Multigravida of advanced maternal age in third trimester Obesity complicating , third trimester Supervision of high risk in third trimester Unspecified high-risk [facility]* Diagnosis Insulin controlled gestational diabetes mellitus (GDM) in third trimester- Primary 37 weeks gestation of state, incidental Supervision of high risk in third trimester Unspecified high-risk documented in this encounter [facility] note* Diagnosis Insulin controlled gestational diabetes mellitus (GDM) in third trimester- Primary High-risk in third trimester Obesity complicating , third trimester documented in this encounter [facility] note* Diagnosis Elevated blood pressure reading without diagnosis of hypertension- Primary documented in this encounter [facility] note* Diagnosis History of gestational diabetes mellitus- Primary Personal history of gestational diabetes Preeclampsia in period documented in this encounter [facility] note* Diagnosis state- Primary Routine follow-up Elevated blood pressure reading without diagnosis of hypertension Class 3 severe obesity with body mass index (BMI) of 45.0 to 49.9 in adult, unspecified obesity type, unspecified whether serious comorbidity present (HCC) documented in this encounter [facility] note* Diagnosis care and examination- Primary Routine follow-up documented in this encounter [facility] note* Diagnosis Insulin controlled gestational diabetes mellitus (GDM) in second trimester documented in this encounter [facility] note* Diagnosis Encounter for sterilization- Primary Sterilization Vulval lesion Other specified noninflammatory disorder of vulva and perineum documented in this encounter [facility] note* Diagnosis Thrush- Primary Candidiasis of mouth documented in this encounter [facility] note* Diagnosis Bacterial sinusitis- Primary Unspecified sinusitis (chronic) documented in this encounter [facility] note* Diagnosis Wellness examination- Primary Sleep apnea, unspecified type RADHA (generalized anxiety disorder) Generalized anxiety disorder Hypertension, unspecified type Tinnitus of left ear Unspecified tinnitus Class 3 severe obesity with body mass index (BMI) of 45.0 to 49.9 in adult, unspecified obesity type, unspecified whether serious comorbidity present (HCC) documented in this encounter [facility] note* Diagnosis Hypertension, unspecified type documented in this encounter [facility] note* Diagnosis Hypertension, unspecified type- Primary Sleep apnea, unspecified type Class 3 severe obesity with body mass index (BMI) of 45.0 to 49.9 in adult, unspecified obesity type, unspecified whether serious comorbidity present (HCC) RADHA (generalized anxiety disorder) Generalized anxiety disorder documented in this encounter [facility] note* Diagnosis Thrush- Primary Candidiasis of mouth Throat pain [facility] Diagnosis Class 3 severe obesity with body mass index (BMI) of 45.0 to 49.9 in adult, unspecified obesity type, unspecified whether serious comorbidity present (HCC) Prediabetes Other abnormal glucose [facility]* Diagnosis Class 3 severe obesity with body mass index (BMI) of 45.0 to 49.9 in adult, unspecified obesity type, unspecified whether serious comorbidity present (HCC)- Primary Prediabetes Other abnormal glucose Vitamin D deficiency Unspecified vitamin D deficiency [facility]* Diagnosis Class 3 severe obesity with body mass index (BMI) of 45.0 to 49.9 in adult, unspecified obesity type, unspecified whether serious comorbidity present (HCC) Prediabetes Other abnormal glucose [facility]* Diagnosis Vitamin D deficiency Unspecified vitamin D deficiency documented [facility]* Diagnosis Class 3 severe obesity with body mass index (BMI) of 45.0 to 49.9 in adult, unspecified obesity type, unspecified whether serious comorbidity present (HCC)- Primary Prediabetes Other abnormal glucose Hypertension, unspecified type RADHA (generalized anxiety disorder) Generalized anxiety disorder [facility]* Diagnosis Vitamin D deficiency Unspecified vitamin D deficiency [facility] Diagnosis Class 3 severe obesity with body mass index (BMI) of 45.0 to 49.9 in adult, unspecified obesity type, unspecified whether serious comorbidity present (HCC) Prediabetes Other abnormal glucose documented in this encounter [facility] for referral (narrative)* Diagnostic Procedure Only (Routine) - Authorized Specialty Diagnoses / Procedures Referred By Thaddeus lindsay Referred To Contact [facility] Diagnoses 32 weeks gestation of Insulin controlled gestational diabetes mellitus (GDM) in third trimester High-risk in third trimester Obesity complicating , third trimester Procedures BIOPHYSICAL PROFILE US I BIOPHYSICAL PROFILE NON-STRESS TESTING Any Brandon MD [address] [place] [address] [facility] [address] [place] [address] Referral ID Status Reason Start Date Expiration Date Visits Requested Visits Authorized [id number] Authorized Auto-Generat ed Referral 09/21/2021 09/21/2022 10 1 * Diagnostic Procedure Only (Routine) - Authorized Specialty Diagnoses / Procedures Referred By Thaddeus lindsay Referred To Contact [facility] Diagnoses 32 weeks gestation of Insulin controlled gestational diabetes mellitus (GDM) in third trimester High-risk in third trimester Obesity complicating , third trimester Procedures OBSTETRIC ULTRASOUND WHI US PREG UTERUS AFTER 1ST TRIMEST GESTATION Any Brandon MD [address] [place] [address] [address] Referral ID Status Reason Start Date Expiration Date Visits Requested Visits Authorized [id number] Authorized Auto-Generat ed Referral 09/21/2021 09/21/2022 1 1 * Outpatient Procedure (Routine) - Authorized Specialty Diagnoses / Procedures Referred By Thaddeus lindsay Referred To Contact [facility] Diagnoses 32 weeks gestation of Insulin controlled gestational diabetes mellitus (GDM) in third trimester High-risk in third trimester Obesity complicating , third trimester Procedures NON-STRESS TEST NON-STRESS TEST Any Brandon MD [address] [place] [address] [facility] [address] [place] [address] Referral ID Status Reason Start Date Expiration Date Visits Requested Visits Authorized [id number] Authorized Auto-Generat ed Referral 09/21/2021 09/21/2022 8 1 [facility] for visit Narrative* Outpatient Procedure (Routine) - Closed Specialty Diagnoses / Procedures Referred By Thaddeus lindsay Referred To Contact [facility] Diagnoses Insulin controlled gestational diabetes mellitus (GDM) in second trimester Multigravida of advanced maternal age in third trimester Obesity complicating , third trimester Supervision of high risk in third trimester Procedures NON-STRESS TEST NON-STRESS TEST Any Brandon MD [address] [facility] [place] [address] [facility] [address] [place] [address] Referral ID Status Reason Start Date Expiration Date V isits Requested Visits Authorized [id number] Closed Auto-Generate d Referral 10/10/2021 10/10/2022 5 1 [facility] Family History No Family History Records FoundNo Family History Records Found Advance Directives No Advanced Directives Records FoundNo Advanced Directives Records Found Reason for Referral Specialty Diagnoses / Procedures Referred By Contac t Referred To Contact Diagnoses Preeclampsia in period Procedures CONSULT TO PREVENTIVE CARD OFFICE/OUTPATIENT [facility] MDM 60-74 MINUTES Tanika Honeycutt MD [address] [place] [address] Referral ID Status Reason Start Date Expiration Date Visits Requested Visits Authorized [id number] Authorized PCP Requested Referral 10/31/2021 11/01/2021 1 1 Specialty Diagnoses / Procedures Referred By Contac t Referred To Contact [facility] Diagnoses state Elevated blood pressure reading without diagnosis of hypertension Class 3 severe obesity with body mass index (BMI) of 45.0 to 49.9 in adult, unspecified obesity type, unspecified whether serious comorbidity present (HCC) Procedures ESTABLISH WITH PRIMARY CARE NEW PATIENT OFFICE/OUTPATIENT [facility] MDM 60-74 MINUTES Any Brandon MD [address] [place] [address] [facility] [address] [place] [address] Referral ID Status Reason Start Date Expiration Date V isits Requested Visits Authorized [id number] Closed PCP Requested Referral 11/04/2021 11/04/2022 1 1 Specialty Diagnoses / Procedures Referred By Contac t Referred To Contact Ent - Otolaryngology Diagnoses Tinnitus of left ear Procedures CONSULT TO ENT OFFICE/OUTPATIENT NEW HIGH MDM 60-74 MINUTES Sandhya Aguilera APRN.[employer] [address] [place] [address] Referral ID Status Reason Start Date Expiration Date Visits Requested Visits Authorized [id number] Authorized PCP Requested Referral 2 05/10/2023 1 1 Additional Source Comments INFORMATION SOURCE (unrecogn ized section and content) DATE CREATED AUTHOR AUTHOR'S KATLYN ATION 06/22/2023 [facility] Source Comments (unrecognize d section and content) In the event this informatio n is protected by the Federal Confidentiality of Alcohol and Drug Abuse Patient Records regulations: The Federal rules restrict any use of the information to criminally investigate or prosecute any alcohol or drug abuse patient.[facility] this information is protected by the Federal Confidentiality of Alcohol and Drug Abuse Patient Records regulations: The Federal rules restrict any use of the information to criminally investigate or prosecute any alcohol or drug abuse patient.[facility] event this information is protected by the Federal Confidentiality of Alcohol and Drug Abuse Patient Records regulations: The Federal rules restrict any use of the information to criminally investigate or prosecute any alcohol or drug abuse patient.[facility] event this information is protected by the Federal Confidentiality of Alcohol and Drug Abuse Patient Records regulations: The Federal rules restrict any use of the information to criminally investigate or prosecute any alcohol or drug abuse patient.[facility] event this information is protected by the Federal Confidentiality of Alcohol and Drug Abuse Patient Records regulations: The Federal rules restrict any use of the information to criminally investigate or prosecute any alcohol or drug abuse patient.[facility] event this information is protected by the Federal Confidentiality of Alcohol and Drug Abuse Patient Records regulations: The Federal rules restrict any use of the information to criminally investigate or prosecute any alcohol or drug abuse patient.[facility] event this information is protected by the Federal Confidentiality of Alcohol and Drug Abuse Patient Records regulations: The Federal rules restrict any use of the information to criminally investigate or prosecute any alcohol or drug abuse patient.[facility] event this information is protected by the Federal Confidentiality of Alcohol and Drug Abuse Patient Records regulations: The Federal rules restrict any use of the information to criminally investigate or prosecute any alcohol or drug abuse patient.[facility] the event this information is protected by the Federal Confidentiality of Alcohol and Drug Abuse Patient Records regulations: The Federal rules restrict any use of the information to criminally investigate or prosecute any alcohol or drug abuse patient.[facility] the event this information is protected by the Federal Confidentiality of Alcohol and Drug Abuse Patient Records regulations: The Federal rules restrict any use of the information to criminally investigate or prosecute any alcohol or drug abuse patient.[facility] the event this information is protected by the Federal Confidentiality of Alcohol and Drug Abuse Patient Records regulations: The Federal rules restrict any use of the information to criminally investigate or prosecute any alcohol or drug abuse patient.[facility] the event this information is protected by the Federal Confidentiality of Alcohol and Drug Abuse Patient Records regulations: The Federal rules restrict any use of the information to criminally investigate or prosecute any alcohol or drug abuse patient.[facility] the event this information is protected by the Federal Confidentiality of Alcohol and Drug Abuse Patient Records regulations: The Federal rules restrict any use of the information to criminally investigate or prosecute any alcohol or drug abuse patient.[facility] the event this information is protected by the Federal Confidentiality of Alcohol and Drug Abuse Patient Records regulations: The Federal rules restrict any use of the information to criminally investigate or prosecute any alcohol or drug abuse patient.[facility] the event this information is protected by the Federal Confidentiality of Alcohol and Drug Abuse Patient Records regulations: The Federal rules restrict any use of the information to criminally investigate or prosecute any alcohol or drug abuse patient.[facility] the event this information is protected by the Federal Confidentiality of Alcohol and Drug Abuse Patient Records regulations: The Federal rules restrict any use of the information to criminally investigate or prosecute any alcohol or drug abuse patient.[facility] the event this information is protected by the Federal Confidentiality of Alcohol and Drug Abuse Patient Records regulations: The Federal rules restrict any use of the information to criminally investigate or prosecute any alcohol or drug abuse patient.[facility] the event this information is protected by the Federal Confidentiality of Alcohol and Drug Abuse Patient Records regulations: The Federal rules restrict any use of the information to criminally investigate or prosecute any alcohol or drug abuse patient.[facility] event this information is protected by the Federal Confidentiality of Alcohol and Drug Abuse Patient Records regulations: The Federal rules restrict any use of the information to criminally investigate or prosecute any alcohol or drug abuse patient.[facility] the event this information is protected by the Federal Confidentiality of Alcohol and Drug Abuse Patient Records regulations: The Federal rules restrict any use of the information to criminally investigate or prosecute any alcohol or drug abuse patient.[facility] the event this information is protected by the Federal Confidentiality of Alcohol and Drug Abuse Patient Records regulations: The Federal rules restrict any use of the information to criminally investigate or prosecute any alcohol or drug abuse patient.[facility] the event this information is protected by the Federal Confidentiality of Alcohol and Drug Abuse Patient Records regulations: The Federal rules restrict any use of the information to criminally investigate or prosecute any alcohol or drug abuse patient.[facility] the event this information is protected by the Federal Confidentiality of Alcohol and Drug Abuse Patient Records regulations: The Federal rules restrict any use of the information to criminally investigate or prosecute any alcohol or drug abuse patient.[facility] the event this information is protected by the Federal Confidentiality of Alcohol and Drug Abuse Patient Records regulations: The Federal rules restrict any use of the information to criminally investigate or prosecute any alcohol or drug abuse patient.[facility] the event this information is protected by the Federal Confidentiality of Alcohol and Drug Abuse Patient Records regulations: The Federal rules restrict any use of the information to criminally investigate or prosecute any alcohol or drug abuse patient.[facility] the event this information is protected by the Federal Confidentiality of Alcohol and Drug Abuse Patient Records regulations: The Federal rules restrict any use of the information to criminally investigate or prosecute any alcohol or drug abuse patient.[facility] the event this information is protected by the Federal Confidentiality of Alcohol and Drug Abuse Patient Records regulations: The Federal rules restrict any use of the information to criminally investigate or prosecute any alcohol or drug abuse patient.[facility] the event this information is protected by the Federal Confidentiality of Alcohol and Drug Abuse Patient Records regulations: The Federal rules restrict any use of the information to criminally investigate or prosecute any alcohol or drug abuse patient.[facility] the event this information is protected by the Federal Confidentiality of Alcohol and Drug Abuse Patient Records regulations: The Federal rules restrict any use of the information to criminally investigate or prosecute any alcohol or drug abuse patient.[facility] the event this information is protected by the Federal Confidentiality of Alcohol and Drug Abuse Patient Records regulations: The Federal rules restrict any use of the information to criminally investigate or prosecute any alcohol or drug abuse patient.[facility] the event this information is protected by the Federal Confidentiality of Alcohol and Drug Abuse Patient Records regulations: The Federal rules restrict any use of the information to criminally investigate or prosecute any alcohol or drug abuse patient.[facility] the event this information is protected by the Federal Confidentiality of Alcohol and Drug Abuse Patient Records regulations: The Federal rules restrict any use of the information to criminally investigate or prosecute any alcohol or drug abuse patient.[facility] the event this information is protected by the Federal Confidentiality of Alcohol and Drug Abuse Patient Records regulations: The Federal rules restrict any use of the information to criminally investigate or prosecute any alcohol or drug abuse patient.[facility] the event this information is protected by the Federal Confidentiality of Alcohol and Drug Abuse Patient Records regulations: The Federal rules restrict any use of the information to criminally investigate or prosecute any alcohol or drug abuse patient.[facility] the event this information is protected by the Federal Confidentiality of Alcohol and Drug Abuse Patient Records regulations: The Federal rules restrict any use of the information to criminally investigate or prosecute any alcohol or drug abuse patient.[facility] the event this information is protected by the Federal Confidentiality of Alcohol and Drug Abuse Patient Records regulations: The Federal rules restrict any use of the information to criminally investigate or prosecute any alcohol or drug abuse patient.[facility] the event this information is protected by the Federal Confidentiality of Alcohol and Drug Abuse Patient Records regulations: The Federal rules restrict any use of the information to criminally investigate or prosecute any alcohol or drug abuse patient.[facility] the event this information is protected by the Federal Confidentiality of Alcohol and Drug Abuse Patient Records regulations: The Federal rules restrict any use of the information to criminally investigate or prosecute any alcohol or drug abuse patient.[facility] the event this information is protected by the Federal Confidentiality of Alcohol and Drug Abuse Patient Records regulations: The Federal rules restrict any use of the information to criminally investigate or prosecute any alcohol or drug abuse patient.[facility] the event this information is protected by the Federal Confidentiality of Alcohol and Drug Abuse Patient Records regulations: The Federal rules restrict any use of the information to criminally investigate or prosecute any alcohol or drug abuse patient.[facility]In the event this information is protected by the Federal Confidentiality of Alcohol and Drug Abuse Patient Records regulations: The Federal rules restrict any use of the information to criminally investigate or prosecute any alcohol or drug abuse patient.[facility] HospitalIn the event this information is protected by the Federal Confidentiality of Alcohol and Drug Abuse Patient Records regulations: The Federal rules restrict any use of the information to criminally investigate or prosecute any alcohol or drug abuse patient.[facility] HospitalIn the event this information is protected by the Federal Confidentiality of Alcohol and Drug Abuse Patient Records regulations: The Federal rules restrict any use of the information to criminally investigate or prosecute any alcohol or drug abuse patient.[facility] HospitalIn the event this information is protected by the Federal Confidentiality of Alcohol and Drug Abuse Patient Records regulations: The Federal rules restrict any use of the information to criminally investigate or prosecute any alcohol or drug abuse patient.[facility] HospitalIn the event this information is protected by the Federal Confidentiality of Alcohol and Drug Abuse Patient Records regulations: The Federal rules restrict any use of the information to criminally investigate or prosecute any alcohol or drug abuse patient.[facility] HospitalIn the event this information is protected by the Federal Confidentiality of Alcohol and Drug Abuse Patient Records regulations: The Federal rules restrict any use of the information to criminally investigate or prosecute any alcohol or drug abuse patient.[facility] HospitalIn the event this information is protected by the Federal Confidentiality of Alcohol and Drug Abuse Patient Records regulations: The Federal rules restrict any use of the information to criminally investigate or prosecute any alcohol or drug abuse patient.[facility] HospitalIn the event this information is protected by the Federal Confidentiality of Alcohol and Drug Abuse Patient Records regulations: The Federal rules restrict any use of the information to criminally investigate or prosecute any alcohol or drug abuse patient.[facility] HospitalIn the event this information is protected by the Federal Confidentiality of Alcohol and Drug Abuse Patient Records regulations: The Federal rules restrict any use of the information to criminally investigate or prosecute any alcohol or drug abuse patient.[facility] HospitalIn the event this information is protected by the Federal Confidentiality of Alcohol and Drug Abuse Patient Records regulations: The Federal rules restrict any use of the information to criminally investigate or prosecute any alcohol or drug abuse patient.[facility] HospitalIn the event this information is protected by the Federal Confidentiality of Alcohol and Drug Abuse Patient Records regulations: The Federal rules restrict any use of the information to criminally investigate or prosecute any alcohol or drug abuse patient.[facility] HospitalIn the event this information is protected by the Federal Confidentiality of Alcohol and Drug Abuse Patient Records regulations: The Federal rules restrict any use of the information to criminally investigate or prosecute any alcohol or drug abuse patient.[facility] HospitalIn the event this information is protected by the Federal Confidentiality of Alcohol and Drug Abuse Patient Records regulations: The Federal rules restrict any use of the information to criminally investigate or prosecute any alcohol or drug abuse patient.[facility] HospitalIn the event this information is protected by the Federal Confidentiality of Alcohol and Drug Abuse Patient Records regulations: The Federal rules restrict any use of the information to criminally investigate or prosecute any alcohol or drug abuse patient.[facility] Teams (unrecognized sec tion and content) Cardiovascular Technologist Relationship Specialty Start Date End Date Randee MontalvoABHISHEK [address] [place] [address] PCP - General Family Practice 04/24/18 Cardiovascular Technologist Relationship Specialty Start Date End Date Randee Montalvo ABHISHEK [address] [place] [address] PCP - General Family Practice 04/24/18 Cardiovascular Technologist Relationship Specialty Start Date End Date ElidiaRandee kingABHISHEK [address] [place] [address] PCP - General Family Practice 04/24/18 Cardiovascular Technologist Relationship Specialty Start Date End Date Randee MontalvoABHISHEK [address] [place] [address] PCP - General Family Practice 04/24/18 Cardiovascular Technologist Relationship Specialty Start Date End Date Selvin RandeeABHISHEK [address] [place] [address] PCP - General Family Practice 04/24/18 Cardiovascular Technologist Relationship Specialty Start Date End Date Randee Montalvo CNP [address] [place] [address] PCP - General Family Practice 04/24/18 Cardiovascular Technologist Relationship Specialty Start Date End Date Randee Montalvo CNP [address] [place] [address] PCP - General Family Practice 04/24/18 Cardiovascular Technologist Relationship Specialty Start Date End Date Randee Montavlo CNP [address] [place] [address] PCP - General Family Practice 04/24/18 Cardiovascular Technologist Relationship Specialty Start Date End Date Randee Montalvo CNP [address] [place] [address] PCP - General Family Practice 04/24/18 Cardiovascular Technologist Relationship Specialty Start Date End Date Randee Montalvo CNP [address] [place] [address] PCP - General Family Practice 04/24/18 Cardiovascular Technologist Relationship Specialty Start Date End Date Randee Montalvo CNP [address] [place] [address] PCP - General Family Practice 04/24/18 Cardiovascular Technologist Relationship Specialty Start Date End Date Randee Montalvo CNP [address] [place] [address] PCP - General Family Practice 04/24/18 Cardiovascular Technologist Relationship Specialty Start Date End Date Randee Montalvo CNP [address] [place] [address] PCP - General Family Practice 04/24/18 Cardiovascular Technologist Relationship Specialty Start Date End Date Randee Montalvo CNP [address] [place] [address] PCP - General Family Practice 04/24/18 Cardiovascular Technologist Relationship Specialty Start Date End Date Randee Montalvo CNP [address] [place] [address] PCP - General Family Practice 04/24/18 Cardiovascular Technologist Relationship Specialty Start Date End Date Randee MontalvoABHISHEK [address] [place] [address] PCP - General Family Practice 04/24/18 Cardiovascular Technologist Relationship Specialty Start Date End Date Selvin RandeeABHISHEK [address] [place] [address] PCP - General Family Practice 04/24/18 Cardiovascular Technologist Relationship Specialty Start Date End Date Older, [place], OPERATIONS INSPECTOR.DEPARTMENT SECRETARY [address] [place] [address] PCP - General Internal Medicine 11/04/21 Cardiovascular Technologist Relationship Specialty Start Date End Date Older, [place], OPERATIONS INSPECTOR.DEPARTMENT SECRETARY [address] [place] [address] PCP - General Internal Medicine 11/04/21 Cardiovascular Technologist Relationship Specialty Start Date End Date Older, [place], OPERATIONS INSPECTOR.DEPARTMENT SECRETARY [address] [place] [address] PCP - General Internal Medicine 11/04/21 Cardiovascular Technologist Relationship Specialty Start Date End Date Older, [place], OPERATIONS INSPECTOR.DEPARTMENT SECRETARY [address] [place] [address] PCP - General Internal Medicine 11/04/21 Cardiovascular Technologist Relationship Specialty Start Date End Date Randee MontalvoABHISHEK [address] [place] [address] PCP - General Family Practice 04/24/18 11/03/21 Older, [place], OPERATIONS INSPECTOR.DEPARTMENT SECRETARY [address] [place] [address] PCP - General Internal Medicine 11/04/21 Cardiovascular Technologist Relationship Specialty Start Date End Date Randee Montalvo CNP [address] [place] [address] PCP - General Family Practice 04/24/18 11/03/21 Older, [place], OPERATIONS INSPECTOR.DEPARTMENT SECRETARY [address] [place] [address] PCP - General Internal Medicine 11/04/21 Cardiovascular Technologist Relationship Specialty Start Date End Date Randee Montalvo CNP [address] [place] [address] PCP - General Family Practice 04/24/18 11/03/21 Older, [place], OPERATIONS INSPECTOR.DEPARTMENT SECRETARY [address] [place] [address] PCP - General Internal Medicine 11/04/21 Cardiovascular Technologist Relationship Specialty Start Date End Date Randee Montalvo CNP [address] [place] [address] PCP - General Family Practice 04/24/18 11/03/21 Older, [place], OPERATIONS INSPECTOR.DEPARTMENT SECRETARY [address] [place] [address] PCP - General Internal Medicine 11/04/21 Cardiovascular Technologist Relationship Specialty Start Date End Date Randee Montalvo CNP [address] [place] [address] PCP - General Family Practice 04/24/18 11/03/21 Older, [place], OPERATIONS INSPECTOR.DEPARTMENT SECRETARY [address] [place] [address] PCP - General Internal Medicine 11/04/21 Cardiovascular Technologist Relationship Specialty Start Date End Date [place] Rahman, OPERATIONS INSPECTOR.DEPARTMENT SECRETARY [address] [place] [address] PCP - General Internal Medicine 11/04/21 Cardiovascular Technologist Relationship Specialty Start Date End Date Randee Montalvo CNP [address] [place] [address] PCP - General Family Practice 04/24/18 11/03/21 [place] Rahman, OPERATIONS INSPECTOR.DEPARTMENT SECRETARY [address] [place] [address] PCP - General Internal Medicine 11/04/21 Cardiovascular Technologist Relationship Specialty Start Date End Date [place] Rahman APRN.DEPARTMENT SECRETARY [address] [place] [address] PCP - General Internal Medicine 11/04/21 Cardiovascular Technologist Relationship Specialty Start Date End Date [place] Rahman APRN.DEPARTMENT SECRETARY [address] [place] [address] PCP - General Internal Medicine 11/04/21 Cardiovascular Technologist Relationship Specialty Start Date End Date Alon Troncoso DO [address] [place] [address] PCP - General Family Medicine 05/31/22 Cardiovascular Technologist Relationship Specialty Start Date End Date Alon Troncoso DO [address] [place] [address] PCP - General Family Medicine 05/31/22 Cardiovascular Technologist Relationship Specialty Start Date End Date Alon Troncoso DO [address] [place] [address] PCP - General Family Medicine 05/31/22 Cardiovascular Technologist Relationship Specialty Start Date End Date Alon Troncoso DO [address] [place] [address] PCP - General Family Medicine 05/31/22 Cardiovascular Technologist Relationship Specialty Start Date End Date Alon Troncoso DO [address] [place] [address] PCP - General Family Medicine 05/31/22 Cardiovascular Technologist Relationship Specialty Start Date End Date Alon Troncoso DO [address] [place] [place], [place] [address] PCP - General Family Medicine 05/31/22 Cardiovascular Technologist Relationship Specialty Start Date End Date Alon Troncoso DO [address] [place], [place] [address] PCP - General Family Medicine 05/31/22 Cardiovascular Technologist Relationship Specialty Start Date End Date Alon Troncoso DO [address] [place], [place] [address] PCP - General Family Medicine 05/31/22 Cardiovascular Technologist Relationship Specialty Start Date End Date Alon Troncoso DO [address] [place], [place] [id number] PCP - General Family Medicine 05/31/22 Reason for Visit (unrecogniz ed section and content) Reason Onset Date Comments Care 09/09/2021 Reason Comments US Specialty Diagnoses / Procedures Referred By Contac t Referred To Contact [facility] Diagnoses AMA (advanced maternal age) multigravida 35+, second trimester Insulin controlled gestational diabetes mellitus (GDM) in second trimester Procedures OBSTETRIC ULTRASOUND WHI US PREG UTERUS AFTER 1ST TRIMEST GESTATION Miley Khan MD [address] [place] [address] [facility] [address] [place] [address] Referral ID Status Reason Start Date Expiration Date V isits Requested Visits Authorized [id number] Closed Auto-Generate d Referral 08/16/2021 08/16/2022 1 1 Reason Onset Date Comments Care 09/21/2021 Specialty Diagnoses / Procedures Referred By Contac t Referred To Contact [facility] Diagnoses 32 weeks gestation of Insulin controlled gestational diabetes mellitus (GDM) in third trimester High-risk in third trimester Obesity complicating , third trimester Procedures BIOPHYSICAL PROFILE US WHI BIOPHYSICAL PROFILE NON-STRESS TESTING Any Brandon MD [address] [place] [address] [address] Referral ID Status Reason Start Date Expiration Date V isits Requested Visits Authorized [id number] Closed Auto-Generate d Referral 09/21/2021 09/21/2022 10 1 Reason Onset Date Comments Care 09/29/2021 Reason Onset Date Comments Care 10/06/2021 Reason Onset Date Comments Care 10/10/2021 Reason Comments FMLA Paperwork Reason Onset Date Comments Care 10/17/2021 Reason Onset Date Comments Care 10/20/2021 Specialty Diagnoses / Procedures Referred By Thaddeus lindsay Referred To Contact [facility] Diagnoses Insulin controlled gestational diabetes mellitus (GDM) in second trimester Multigravida of advanced maternal age in third trimester Obesity complicating , third trimester Supervision of high risk in third trimester Procedures NON-STRESS TEST NON-STRESS TEST Any Brandon MD [address] [place] [address] [facility] [address] [place] [address] Referral ID Status Reason Start Date Expiration Date V isits Requested Visits Authorized [id number] Closed Auto-Generate d Referral 10/10/2021 10/10/2022 5 1 Reason Onset Date Comments Care 10/24/2021 Reason Comments Ob Delivery Note Reason Comments Orders Reason Comments Care Reason Comments Refill Request Reason Comments Routine Pre-Op Visit Reason Comments Mouth Sores x 4 days Reason Comments breast pump order Reason Comments Cough Congestion, ST x3 we eksL ear pain x1 week Reason Comments Establish Care Reason Comments MRI request Reason Comments one month f/up Reason Comments Pain, Throat Pt reported throat p ain , white patches, nasal congestin x4 days. Reason Comments Weight Management Reason Comments adipex check Reason Onset Date Comments Refill Request 02/08/2023 FOR RECORDS PERTAINING TO PATIENTS WHO ARE OR HAVE BEEN ENROLLED IN A CHEMICAL DEPENDENCY/SUBSTANCEABUSE PROGRAM, SOME INFORMATION MAY BE OMITTED. This clinical summary was aggregated from multiple sources. Caution should be exercised in using it in the provision of clinical care. This summary normalizes information from multiple sources, and as a consequence, information in this document may materially change the coding, format and clinical context of patient data. In addition, data may be omitted in some cases. CLINICAL DECISIONS SHOULD BE BASED ON THE PRIMARY CLINICAL RECORDS. [facility]. provides no warranty or guarantee of the accuracy or completeness of information in this document.
--- NOTE | 2023-06-28 06:36 | MRI_ITS ---
STUDY: MRI RIGHT KNEE REASON FOR EXAM: Female, 38 years old. Pain. No known injury, pain anterior and posterior, depending on movement. TECHNIQUE: Standardized fat and water weighted pulse sequences were obtained in all 3 orthogonal planes. COMPARISON: Right knee radiographs dated 06/08/2023. FINDINGS: Normal medial meniscus. Normal hyaline cartilage of the medial femorotibial compartment. Normal medial femoral condyle and tibial plateau. There is a minimal grade I MCL sprain with periligamentous edema (coronal T2 series 8 image 19). Normal distal semimembranosus, gracilis and semitendinosus tendons. Normal lateral meniscus. Normal hyaline cartilage of the lateral femorotibial compartment. Normal lateral femoral condyle and tibial plateau. Normal proximal tibiofibular articulation. Normal lateral collateral ( fibular ) ligament. Normal popliteus tendon. Normal biceps femoris tendon. Normal anterior cruciate ligament (ACL). Normal posterior cruciate ligament (PCL). There is low-grade chondromalacia along the lateral patellar facet with underlying subchondral edema/cyst formation. Congruent patellofemoral articulation. Normal medial and lateral patellar retinaculum. Normal quadriceps tendon. Normal patellar tendon. Normal Hoffa''s fat pad. There is a tiny joint effusion. There is mild subcutaneous soft tissue edema around the right knee. The otherwise visualized osseous structures are unremarkable. MRI/Lower Ext Joint Only (Routine) IMPRESSION: Minimal grade I MCL sprain. 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 Tiny joint effusion. Mild subcutaneous soft tissue edema around the right knee. No discrete meniscal tear. Electronically Signed: Cem Olvera MD at 9:28 EST ,
== END | disposition home or self-care (01) ==
LOC: MRI 06:32
PROVIDERS: PCP Student in an Organized Health Care Education/Training Program; Referring Provider Physician Assistant; Visit Provider Physician Assistant
DX: M23.51 Chronic instability of knee, right knee (principal); M25.561 Pain in right knee
CPT/HCPCS: 73721

== ENCOUNTER 2024-04-08 16:30 | Outpatient (RCR) | payer MEDICAID, SELFPAY ==
--- NOTE | 2024-03-14 15:19 | HP.PTEVAL_ITS ---
Patient's Visit Information Visit Information Visit Information: PAZ ALMARAZ is a 39 year old F referred to Physical Therapy by Dr. Liu Mata MD with a diagnosis of Hypermobility arthralgia. 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 Pt reports difficulties with walking, squatting, hiking, tennis, vacuuming, and ascending/descending stairs; states she will use a two-step pattern while holding onto a handrail and will descend sideways. Pt reports she has to think a lot when ambulating to make sure she doesn't hyperextend her knees, if they do she states they will cause her to trip up. Pt reports she has a constant dull and achy pain, when squatting it will be a sharp shooting pain. States no limitations with standing for long periods of time. Pt reports she has to be more cautious when turning in the shower and when stepping in and out. Pt reports popping and clicking in bilat hips when turning in bed affects her sleep. Pt reports no numbness or tingling. Pt reports bilat knee pain 3-4/10 and a 10/10 at its worst. Pain B knees: Pain Intensity (Out of 10): 4 Pain Intensity Range: 10 Objective Objective: NEURO: sensation WNL to light touch; DTR patellar and achilles 1/3 hypo reflexive MMT: B hips= grossly 4/5; R knee flex/ext= 4-/5, L knee flex/ext= 4/5; L ankle DF/PF= 4/5, R ankle= DF/PF= 4+/5 6 MWT: Pt was able to ambulate 1,190 ft without stopping Stairs: Reciprocal pattern when ascending; Pt descends with a two-step pattern, leading with the R LE secondary to R knee hyperextending, holds onto one handrail Balance/Special Test Scores Lower Extremity Functional Score: 34 Goals Goal 1:: Pt will decrease bilat LE pain by 50% to aid with sleep. Goal Time Frame: 4-6 Weeks Goal 2:: Pt will be I with HEP. Goal 3:: Pt will be able to descend stairs with a reciprocal pattern to aid with stair negotiation. Goal Time Frame: 4-6 Weeks Goal 4:: Pt will increase bilat LE strength by one grade to aid with ambulation. Goal Time Frame: 4-6 Weeks Rehabilitation Potential Physical Therapy Diagnosis: Bilat LE instability Rehabilitation Potential: Good Anticipated Interventions Patient/Client Instruction: Educate patient on: Plan of Care Therapeutic Exercise to Include: Strength training, Balance training, Body mechanics and Dynamic Lumbar Stabilization For the Purpose of:: To decrease pain, To improve muscle performance and motor function, To increase tolerance to activity/condition/position, To improve gait and locomotor functions and To improve balance Text: Thank you for the opportunity to evaluate your patient. For Medicare and Medicare HMO plans, please review the plan of care and approve it. It will need to be FAXED BACK to us at [phone] for Medicare purposes. For Medicare only, by signing this I certify the plan of care. Please let me know if there are questions or concerns regarding this plan of care. Physician Signature: Date:
--- NOTE | 2024-06-05 16:58 | HP.PT.NRP ---
Patient Information Patient Information: PAZ ALMARZA was seen in my office for initial evaluation on 03/14/24. The following Plan of Care was established for this patient: POC Established Initial Frequency: 2x /Week Initial Duration: 4 Weeks Anticipated Interventions Patient/Client Instruction: Educate patient on: Plan of Care Therapeutic Exercise to Include: Strength training, Balance training, Body mechanics and Dynamic Lumbar Stabilization For the Purpose of:: To decrease pain, To improve muscle performance and motor function, To increase tolerance to activity/condition/position, To improve gait and locomotor functions and To improve balance Last Seen Last Seen: This patient was last seen in our office . Pertinent comments regarding their Physical therapy will appear below: Discharge At this point I will be discontinuing this patient from physical therapy. I would be happy to see this patient again in the future if found appropriate by the physician. Thank you! Matthew Baxter, PT, ATC Balance/Gait/Functional tests Balance/Special Test Scores Lower Extremity Functional Score: 34
== END 2024-04-08 19:00 | disposition home or self-care (01) ==
LOC: PT 16:30
PROVIDERS: PCP Student in an Organized Health Care Education/Training Program; Referring Provider Internal Medicine Rheumatology; Visit Provider Internal Medicine Rheumatology
DX: M25.50 Pain in unspecified joint (principal)
CPT/HCPCS: 97110; 97161

== ENCOUNTER 2025-04-16 07:30 | Outpatient (RCR) | payer MEDICAID, SELFPAY ==
--- NOTE | 2025-02-26 10:37 | HP.OTEVAL ---
Patient's Visit Information Visit Information Visit Information: PAZ ALMARAZ is a 39 year old F, referred to Occupational Therapy by VAIBHAV Ledesma, with a diagnosis of left scapho-lunate dissociation. Date of Evaluation: 02/26/25 Occupational Therapist: Julissa Rai, MUSHTAQ/Davon, CHT Subjective Subjective: This 39 year old female was seen for OT eval with dx of scapho-lunate dissociation. pt states for about 3 years she has had discomfort on and off. Pt states she gets a throbbing pain ( she will get a pop and lightning shooting down her arm) pt feels she probably had a fall that initiated the problem. pt is right handed pt states ice does help heat does not make it feel better. pt tried a couple of braces but this did not help. pt is limited with any bilateral hand task that requires lift/carry or push/pull due to pain and weakness. pt would like to return to her PLOF. Pain left wrist: Current Pain Intensity: 4 Pain Intensity Range: 4 and 7 ROM Elbow: right/left WNL Forearm: right/left WNL Wrist: right 70/75 left 50/60 CMC: right 5 left 10 MP: right 70 left 60 IP: right 55 left 60 Opposition: Kapandji opposition scale right 10 left 10 ( distal jimenez crease) Strength Compensation And Benefits Administrator: right 55# left 20# Lateral Pinch: right 12# left 6# Tripod Pinch: right 13# left 6# Strength Comments: pt demo with weakness of left decay control operator and pinch Sensation Sensation Comments: denies Quick DASH-Disab of Arm,Shoulder& Hand Quick DASH Score: 41.6650 Goals Goal:: pt will demo a increase in left decay control operator strength by 10# or greater to increase her IND with ADLs by d.c pt will demo a increase in left lateral and tripod pinch by 3# or greater to increase pts IND with ADLS by d.c Goal:: pt will report no pain greater than 2/10 with use of left UE with ADLs by d.c Goal:: Pt will demo understanding of joint protection and ergonomics when performing BADLs and IADLs by d/c Pt will demo understanding of adaptive Equipment use to decrease stress on joints to allow pt to perform BADSL and IADLS at MARY level. Goal:: Pt will demo understanding of using supportive bracing 80% of workday/ADLS to decrease stress on tendon origin to allow healing and decrease pain by end of 2nd session. Rehabilitation General Assessment: pt demo with symptoms of pain, weakness and limited use of left UE for ADLs and IADLs. Pt demo need for skilled OT services 1-2x week for 4-6 weeks to assist pt in reaching her maximal rehab potential. Rehabilitation Potential: Good Anticipated Interventions Anticipated Interventions: A/AAROM/PROM, Strengthening, Triggerpoint Release, Modalities, Orthoses, Joint Protection/Energy Conservation, Ergonomic Education, Fine Motor Coord/Shashi, Education re assistive Equipment, Education re Diagnosis and Home Program Visit Plan Frequency: 2-3x /Week Duration: 4-6 Weeks General Plan: decrease pain supportive bracing wrist stabilization ex as tolerated wrist ergonomics TEXT: Thank you for the opportunity to evaluate your patient. For Medicare and Medicare HMO plans, please review the plan of care and approve it. It will need to be FAXED BACK to us at [phone] for Medicare purposes. Please let me know if there are questions or concerns regarding this plan of care. Physician Signature: Date:
--- NOTE | 2025-04-16 07:58 | HP.OTDCSUM ---
Discharge Summary D/C Summary: It has been my pleasure to treat PAZ ALMARAZ under orders from VAIBHAV Ledesma, for the diagnosis of left scapho-lunate dissociation for a total of 12 visit(s). Please see the following information for a summary of their discharge status. Overall Improvement % Improvement: 50 Objective Objective/Function: pt reports less pain Goals Patient Goals: Regain Strength, Decrease Pain, Use Hand/Wrist/Arm Normally Again and Resume Former Household Responsibilities (Cooking,Cleaning,Yard, etc.) Goal:: pt will demo a increase in left carpenter cradle and dolly strength by 10# or greater to increase her IND with ADLs by d.c progressing pt will demo a increase in left lateral and tripod pinch by 3# or greater to increase pts IND with ADLS by d.c progressing Goal:: pt will report no pain greater than 2/10 with use of left UE with ADLs by d.c Goal:: Pt will demo understanding of joint protection and ergonomics when performing BADLs and IADLs by d/c Pt will demo understanding of adaptive Equipment use to decrease stress on joints to allow pt to perform BADSL and IADLS at MARY level. Goal:: Pt will demo understanding of using supportive bracing 80% of workday/ADLS to decrease stress on tendon origin to allow healing and decrease pain by end of 2nd session. Plan Plan: cont. wrist stabilization US D/C Information Discharge Comments: pt was seen for 12 OT session- therapist ed. pt on wrist and thumb stabilization ex. using wrist brace to limit full wrist ROM to improve stability and decrease pain. pt will have MRI next week. pt will cont. conservative mtg and return to following MRI results. pt agrees with d/c at this time. d/c sentence: If there are questions or concerns regarding this patient's occupational therapy, please fell free to call me at [phone]. Thank you for the referral of this patient. Sincerely, Julissa Rai, OTR/L, CHT
== END 2025-04-16 19:00 | disposition home or self-care (01) ==
LOC: OT 07:30
PROVIDERS: PCP Student in an Organized Health Care Education/Training Program; Referring Provider Nurse Practitioner Family; Visit Provider Nurse Practitioner Family
DX: M25.339 Other instability, unspecified wrist (principal)
CPT/HCPCS: 97035; 97110; 97140; 97166; 97167; 97530

== ENCOUNTER → 2025-04-22 | Outpatient (CLI) | payer MEDICAID, SELFPAY ==
--- NOTE | 2025-04-22 09:30 | MRI_ITS ---
PROCEDURE: UPPER EXT JOINT ONLY(ROUTINE) 04/22/2025 REASON FOR EXAM: L WRIST PAIN, WEAKNESS TECHNIQUE: Procedure Code: MRIUEJ Modality: MR Procedure: UPPER EXT JOINT ONLY(ROUTINE) Multiplanar and multisequence images were obtained without IV contrast administration. COMPARISON: none FINDINGS: Subcortical pseudocysts of the carpal bones with a large pseudocyst of the proximal scaphoid pole associated with surrounding scaphoid patchy marrow edema. No obvious acute fracture or dislocation is noted. No marrow infiltrative lesions Intact triangular fibrocartilage. Minimal fluid signal encasing the extensor carpi radialis brevis tendon. The muscles and rest of the tendons around the wrist joint appear unremarkable. No signs or tear or significant tenosynovitis. Minimal dorsal tilt of the lunate in relation to the distal radius with the preserved scapholunate and capitolunate angles, likely positional. The carpals, metacarpal and visualized portions of radius and ulna appear unremarkable. Mild radio-carpal, radio-ulnar, ulnocarpal, inter-carpal and carpometacarpal joints effusion. A ganglion cyst 7 mm seen along the volar radiocarpal articulation. Carpal tunnel, Guyon's canal and structures within them are unremarkable. The neurovascular structures are unremarkable. No obvious soft tissue lesion is seen along the course of median nerve. MRI/Upper Ext Joint Only(Routine) IMPRESSION: Subcortical pseudocysts of the carpal bones with a large pseudocyst of the prox imal scaphoid pole associated with surrounding scaphoid patchy marrow edema. Minimal extensor carpi radialis brevis tenosynovitis. Mild radio-carpal, radio-ulnar, ulnocarpal, inter-carpal and carpometacarpal rebecca ints effusion with volar radiocarpal articulation ganglion cyst. [facility]
== END | disposition home or self-care (01) ==
LOC: MRI 09:29
PROVIDERS: PCP Student in an Organized Health Care Education/Training Program; Referring Provider Nurse Practitioner Family; Visit Provider Nurse Practitioner Family
DX: M25.332 Other instability, left wrist (principal); Q79.60 Ehlers-Danlos syndrome, unspecified
CPT/HCPCS: 73221